=== PATIENT | female | born 1935 | race Caucasian/White ===

== ENCOUNTER 2017-12-15 14:46 | Emergency (ER) | payer MEDICARE ==
[~2017-12-15] VITALS: Ht 160 cm; Wt 69.1 kg
[2017-12-15 14:52] VITALS: BP 119/63; Ht 160 cm; Wt 69.1 kg
[2017-12-15] MEDS ORDERED: METOPROLOL TART25 MG PO (14:53)
[2017-12-15] MEDS ORDERED: K-TAB10 MEQ PO (14:55)
[2017-12-15] MEDS ORDERED: PLAVIX75 MG PO (14:56)
[2017-12-15] MEDS ORDERED: DEXILANT30 MG PO (14:56)
[2017-12-15 15:52] LABS: APTT 30.5 SECONDS (22.8-39.4); INR 1.1 (0.85-1.17); PROTIME 13.8 SECONDS (11.6-15.0)
[2017-12-15] MEDS ORDERED: TORADOL10 MG PO (16:30)
== END 2017-12-15 17:06 | disposition home or self-care (01) ==
LOC: D.ER 14:46
PROVIDERS: Emergency Medicine
DX: S22.31XA Fracture of one rib, right side, initial encounter for closed fracture (principal); W18.30XA Fall on same level, unspecified, initial encounter; Y93.89 Activity, other specified; Y92.89 Other specified places as the place of occurrence of the external cause; Z79.01 Long term (current) use of anticoagulants

== ENCOUNTER 2018-07-31 18:41 | Inpatient (IN) | payer MEDICARE ==
[~2018-07-31] VITALS: Ht 160 cm; Wt 69.4 kg
[~2018-07-31 18:41] MED LIST: DEXILANT30 MG PO; K-TAB10 MEQ PO; METOPROLOL TART25 MG PO; PLAVIX75 MG PO; TORADOL10 MG PO
[2018-07-31 19:31] LABS: BASOPHILS 0.4 % (0-2); EOSINOPHILS 1.8 % (0-7); HEMATOCRIT 38.8 % (36.0-48.0); HEMOGLOBIN 13.1 g/dL (12-16); IMMATURE GRANULOCYTES 0.1 % (0-5); LYMPHOCYTES 35.8 % (15-50); MCH 29.6 pg (26.0-34.0); MCHC 33.8 g/dL (31.0-37.0); MCV 87.8 fL (80.0-100.0); MEAN PLATELET VOLUME 10.3 fL (7.4-10.4); MONOCYTES 8.9 % (2-11); PLATELET COUNT 255 10x3/uL (130-400); RBC 4.42 10x6/uL (4.00-5.40); RDW 14.5 % (11.5-14.5); WBC 7.1 10x3/uL (4.8-10.8)
[2018-07-31 19:46] LABS: ALBUMIN 3.7 g/dL (3.4-5.0); ALKALINE PHOSPHATASE 91 U/L (46-116); ALT (SGPT) 13 U/L (10-68); BILIRUBIN - TOTAL 0.33 mg/dL (0.2-1.3); CALC OSMOLALITY 277 mosm/kg (275-300); CARBON DIOXIDE 24.4 mmol/L (21.0-32.0); CHLORIDE - SERUM 107 mmol/L (98-107); CREATININE - SERUM 0.9 mg/dL (0.6-1.3); GLUCOSE 106 mg/dL (74-106); POTASSIUM - SERUM 3.6 mmol/L (3.5-5.1); PROTEIN - SERUM 7.3 g/dL (6.4-8.2); SODIUM 139 mmol/L (136-145); UREA NITROGEN 13 mg/dL (7-18); eGFR NON AFRICAN AMERICAN 63 mL/min (90-120)
[2018-07-31 19:55] LABS: LIPASE 122 U/L (73-393); MAGNESIUM - SERUM 1.7 mg/dL (1.8-2.4); THYROID STIMULATING HORMONE 2.11 uIU/mL (0.36-3.74); TROPONIN-I < 0.017 ng/mL (0.000-0.060)
[2018-07-31 20:52] VITALS: BP 174/82
[2018-07-31 22:33] VITALS: BP 171/75
[2018-07-31] MEDS ORDERED: CILOSTAZOL50 MG PO (22:52)
[2018-07-31] MEDS ORDERED: PROZAC40 MG PO (22:52)
[2018-07-31] MEDS ORDERED: VITAMIN B-122500 MCG PO (22:53)
[2018-07-31] MEDS ORDERED: BAYER CHEWABLE81 MG PO (22:54)
[2018-07-31] MEDS ORDERED: VITAMIN D31000 UNI2 PO (22:54)
[2018-08-01] VITALS (7 sets, daily range): BP systolic 146–179; BP diastolic 73–88; Ht 160 cm; Wt 69.4 kg
--- NOTE | 2018-08-01 03:02 | NUR ---
I have reviewed this patient and I concur with the Shift Assessment completed by the Licensed Practical Nurse today this shift.
--- NOTE | 2018-08-01 20:07 | NUR ---
EVENING ROUNDS COMPLETED. VSS, [id number] NO S/S OF RESP. DISTRESS. RR EVEN AND UNLABORED. PT DENIES ANY FURHTER NEEDS AT THIS TIME. WILL CPOC. CL WITHIN REACH.
--- NOTE | 2018-08-01 22:55 | NUR ---
PT DAUGHTER C/O THAT PT HAVE NOT RECIEVED ANY OF HER NIGHT MEDS. PT STATES MEDS REC. HAS BEEN DONE SINCE YESTERDAY BUT PT DID NOT RECIEVE HER ELAVIL TONIGHT. CALLED CORTNEY ERAZO. CLIENT SERVICES COORDINATOR ORDERED 5MG ELAVIL. PT VOICED THANKS AWAITING STAFF NURSE TO HELP PULL UP MEDS FROM [facility] AT THIS TIME.
[2018-08-02] VITALS: BP 153/69
[2018-08-02 04:00] VITALS: BP 161/79
[2018-08-02 06:32] LABS: BASOPHILS 0.4 % (0-2); EOSINOPHILS 1.6 % (0-7); HEMATOCRIT 40.5 % (36.0-48.0); HEMOGLOBIN 13.2 g/dL (12-16); IMMATURE GRANULOCYTES 0.1 % (0-5); LYMPHOCYTES 23.4 % (15-50); MCH 29.2 pg (26.0-34.0); MCHC 32.6 g/dL (31.0-37.0); MCV 89.6 fL (80.0-100.0); MEAN PLATELET VOLUME 10.1 fL (7.4-10.4); MONOCYTES 9.4 % (2-11); NEUTROPHILS 65.1 % (40-80); PLATELET COUNT 235 10x3/uL (130-400); RBC 4.52 10x6/uL (4.00-5.40); RDW 14.9 % (11.5-14.5); WBC 6.8 10x3/uL (4.8-10.8)
[2018-08-02 06:48] LABS: APTT 27.3 SECONDS (22.8-39.4); INR 1.15 (0.85-1.17); PROTIME 14.2 SECONDS (11.6-15.0)
[2018-08-02 07:08] LABS: ANION GAP 14.4 mmol/L (8-16); CALCIUM 8.6 mg/dL (8.5-10.1); CARBON DIOXIDE 26.1 mmol/L (21.0-32.0); CREATININE - SERUM 0.8 mg/dL (0.6-1.3); POTASSIUM - SERUM 3.5 mmol/L (3.5-5.1)
--- NOTE | 2018-08-02 07:38 | NUR ---
ROUNDING DONE WITH PATIENT BEING NPO FOR CT BX TODAY, PERMITS ARE SIGNED. ON ROOM AIR. 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 ON HEART MONITOR SHOWING SR, HR 75. LEFT FA PIV SEEN WITH NS INFUSING AT 125 CC/HR, ORANGE SWAB CAP IN USE.
--- NOTE | 2018-08-02 09:42 | NUR ---
PATIENT STATES HEADACHE IS SLIGHTLY BETTER FROM ICE PACK THAT WAS OFFERED. STILL NPO FOR CT LUNG BX. FAMILY IS AT BEDSIDE.
[2018-08-02 09:56] VITALS: BP 137/67
--- NOTE | 2018-08-02 11:57 | NUR ---
1145-RETURNS FROM CT WITH DRESSING SEEN TO ANTERIOR CHEST WALL, C/D/I.
[2018-08-02 12:10] VITALS: BP 145/58
--- NOTE | 2018-08-02 13:52 | NUR ---
Nutrition follow-up: Pt s/p EGD with food bolus removal and espophageal dilation Diet has advanced to full liquids RDN will order Ensure with meals RDN following.
[2018-08-02 15:32] VITALS: BP 145/66
--- NOTE | 2018-08-02 18:45 | NUR ---
PATIENT IS RESTING STILL PAST SUPPER. NO BLEEDING SEEN TO LEFT ANTERIOR CHEST FROM CT LUNG BX. WILL CONTINUE TO FOLLOW.
--- NOTE | 2018-08-02 19:15 | NUR ---
PT RESTING IN BED. AROUSES WHEN NURSES CAME INTO ROOM FOR BEDSIDE REPORT. PT IS AAO, ASSISTED PT TO RESTROOM MINIMAL ASSIST. PT GAIT STEADY. NO S/S OF DISTRESS. PT BEDLOW AND CALL LIGHT IN REACH. PT VERBALIZED UNDERSTANDING TO CALL NEXT TIME NEEDING TO GET UP TO PREVENT FALLS UNTIL PT FULLY OUT OF SEDATION. NAME AND DATE ON BOARD. WILL CPOC
[2018-08-02 20:00] VITALS: BP 146/66
--- NOTE | 2018-08-02 20:22 | NUR ---
FIORECET GIVEN FOR A HEADACHE. PT DENIES ANY OTHER NEEDS. WILL CPOC
--- NOTE | 2018-08-02 21:56 | NUR ---
NIGHT MEDICATIONS GIVEN. PT VERBALIZED UNDERSTANDING OF MEDICATIONS. PT IS AAO. CHEFORNAK AND WEARING HEARING AIDS. PT STATES HEADACHE IS BETTER. PT HAS NOURISHENT AT BEDSIDE. NS INFUSING ORDERED. NO S/S OF DISTRESS. HEPARIN STARTED BACK ORDERED. PT VERBALIZED UNDERSTANDING. TESSLON PERLE GIVEN TO DECREASE CHANCE OF COUGH. PT ON 2L O2 NC. BEDLOW AND CALL LIGHT IN REACH. WILL CPOC
[2018-08-03] VITALS: BP 139/63
[2018-08-03 04:00] VITALS: BP 148/62
--- NOTE | 2018-08-03 04:04 | NUR ---
PT ASLEEP. NO S/S OF DISTRESS. RESP EVEN AND UNLABORED. 2L O2 NC. PT WILL CALL FOR ASSIST WHEN NEEDED. NS INFUSING ORDERED BEDLOW AND CALL LIGHT IN REACH. WILL CPOC
--- NOTE | 2018-08-03 07:32 | NUR ---
REPORT RECEIVED. WILL CONTINUE WITH POC. PT CURRENTLY LYING SEMI FOWLERS. CALL LIGHT W/I REACH. PT IS RESTING AT THE MOMENT. FAMILY AT BEDSIDE. RR EVEN AND UNLABORED ON 2L 02. NS INFUSING @125ML/HR VIA L.FOR PIV. PT DENIES ANY NEEDS AT THIS TIME. NO S/S OF DISTRESS NOTED. WILL CTM.
[2018-08-03 08:33] VITALS: BP 167/69
[2018-08-03 11:52] VITALS: BP 143/66
[2018-08-03] MEDS ORDERED: PROTONIX40 MG PO (12:53)
--- NOTE | 2018-08-03 14:16 | NUR ---
PT DISCHARGED HOME VIA WHEELCHAIR WITH FAMILY. PIV REMOVED WITH CATHETER TIP FULLY INTACT. TELEMETRY REMOVED AND RETURNED. PT SIGNED PROPER DISCHARGE INSTRUCTION AND REMOVED ALL VALUABLES FROM THE ROOM.
== END 2018-08-03 14:17 | disposition home or self-care (01) | DRG 182 ==
LOC: D.ER 18:41 → D.M2 21:41
PROVIDERS: Family Medicine; Internal Medicine Gastroenterology; Radiology Diagnostic Radiology; ADMIT Internal Medicine Nephrology; ATTEND Internal Medicine Nephrology
PROC: 0D758ZZ Dilation of Esophagus, Via Natural or Artificial Opening Endoscopic (ICD-10-PCS; principal; 2018-08-01 15:00)
PROC: 0BBG3ZX Excision of Left Upper Lung Lobe, Percutaneous Approach, Diagnostic (ICD-10-PCS; 2018-08-02)
DX: C34.12 Malignant neoplasm of upper lobe, left bronchus or lung (principal); R13.10 Dysphagia, unspecified; I25.10 Atherosclerotic heart disease of native coronary artery without angina pectoris; K21.9 Gastro-esophageal reflux disease without esophagitis; M54.9 Dorsalgia, unspecified; G89.29 Other chronic pain; I73.9 Peripheral vascular disease, unspecified; Z85.3 Personal history of malignant neoplasm of breast; Z87.891 Personal history of nicotine dependence

== ENCOUNTER → 2018-08-16 09:20 | Outpatient (CLI) | payer MEDICARE, BC ==
[2018-08-01 15:01] VITALS: BMI 27.1
[~2018-08-16 09:20] MED LIST changes: +BAYER CHEWABLE81 MG PO; +CILOSTAZOL50 MG PO; +PROTONIX40 MG PO; +PROZAC40 MG PO; +VITAMIN B-122500 MCG PO; +VITAMIN D31000 UNI2 PO
== END | disposition home or self-care (01) ==
LOC: D.MRI 09:00
PROVIDERS: ATTEND Internal Medicine Hematology & Oncology
DX: G93.9 Disorder of brain, unspecified (principal)

== ENCOUNTER 2018-09-01 05:53 | Day surgery (SDC) | payer MEDICARE, BC ==
[~2018-09-01] VITALS: Ht 160 cm; Wt 69.4 kg
[~2018-09-01 05:53] MED LIST changes: +DEXILANT60 MG PO; +ELAVIL25 MG PO
[2018-09-01 06:32] LABS: BASOPHILS 0.8 % (0-2); EOSINOPHILS 3.8 % (0-7); HEMATOCRIT 38.1 % (36.0-48.0); HEMOGLOBIN 12.4 g/dL (12-16); LYMPHOCYTES 36.4 % (15-50); MCH 29.5 pg (26.0-34.0); MCHC 32.5 g/dL (31.0-37.0); MCV 90.5 fL (80.0-100.0); MEAN PLATELET VOLUME 9.8 fL (7.4-10.4); MONOCYTES 9.6 % (2-11); NEUTROPHILS 49.4 % (40-80); PLATELET COUNT 225 10x3/uL (130-400); RBC 4.21 10x6/uL (4.00-5.40); RDW 15.1 % (11.5-14.5); WBC 4.8 10x3/uL (4.8-10.8)
[2018-09-01 06:33] LABS: ANION GAP 11.8 mmol/L (8-16); CALCIUM 8.9 mg/dL (8.5-10.1); CARBON DIOXIDE 28.9 mmol/L (21.0-32.0); CREATININE - SERUM 0.9 mg/dL (0.6-1.3); POTASSIUM - SERUM 3.7 mmol/L (3.5-5.1)
[2018-09-01 06:51] LABS: APTT 28.6 SECONDS (22.8-39.4); INR 1.07 (0.85-1.17); PROTIME 13.4 SECONDS (11.6-15.0)
[2018-09-01] MEDS ORDERED: PROTONIX40 MG PO (07:35)
[2018-09-01 07:49] VITALS: Ht 160 cm; Wt 69.4 kg
--- NOTE | 2018-09-01 10:24 | NUR ---
REINFORCED DRESSING TO LT UPPER CHEST @9086
--- NOTE | 2018-09-01 11:15 | NUR ---
1102 SPOKE WITH ANESTHESIA RE: BP. PER DR. ALVAREZ, HAVE PT F/U WITH PRIMARY CARE
--- NOTE | 2018-09-02 16:07 | OP ---
PATIENT NAME: SHARON SELLERS MEDICAL RECORD: [id number] :31 LOCATION:D[facility] ADMISSION DATE: SURGEON: INOCENTE GLORIA MD DATE OF OPERATION: 09/01/2018 PREOPERATIVE DIAGNOSIS: Lung cancer in need of IV access for chemotherapy. POSTOPERATIVE DIAGNOSIS: Lung cancer in need of IV access for chemotherapy. PROCEDURES: 1. Placement of left infraclavicular PowerPort under fluoroscopic guidance. 2. Immediate surgeon interpretation of the fluoroscopic images. SURGEON: Inocente Gloria MD REFERRAL COORDINATOR: None. BLOOD LOSS: Minimal. ANESTHESIA: General. COMPLICATIONS: None. The risks, possible complications and alternatives to the procedure were explained to the patient. She elects to proceed. The discussion specifically included, but was not limited to, bleeding requiring emergency reoperation, infection, the port could flip or become nonfunctional. No radiologist was present for this procedure. Static fluoroscopic images were obtained and are kept in the PACS system. The surgeon interpretation of the radiographic images is dictated within the body of this operative note. OPERATIVE COURSE: The patient was conveyed to the operating room electively on 09/01/2018. General anesthesia was induced by the anesthesia staff. The left chest and left neck were sterilely prepped and draped. Under ultrasonographic guidance, I percutaneously accessed the left internal jugular vein in an antegrade fashion. A guidewire passed easily. This was visualized under fluoroscopy. A skin incision was accomplished around the guidewire. Even though the patient had a mastectomy, I elected to place the port on the left side. A transverse incision was accomplished in the left anterior superior infraclavicular chest. Sharp dissection was carried down to the level of the pectoralis fascia. The subcutaneous pocket was fashioned bluntly in a caudad direction. I then excised some of the adipose tissue from between the skin and the pectoralis fascia in order to aid in accessing the port. I tunneled the catheter from the chest incision to the neck incision. Under fluoroscopy, I advanced a dilator sheath over the wire. The dilator and wire were removed. Through the sheath, I advanced the PowerPort catheter to the cavoatrial junction. The Peel-Away sheath was then removed. I then shortened the catheter. It was attached to the PowerPort. The locking device was firmly engaged. The port was placed in the subcutaneous pocket. It was sutured to the underlying pectoralis fascia with 3-point fixation utilizing 3-0 Prolenes to prevent the port from flipping. OPERATIVE REPORT [id number] SHARON SELLERS I irrigated in the port pocket. The subdermis was approximated with interrupted 3-0 Vicryls. The skin was approximated with a running intracuticular 3-0 Vicryl. Skin incision at the neck was closed with interrupted intracuticular 3-0 Vicryls. I then accessed the port. It accessed easily. It aspirated blood and it flushed easily as well. I then deaccessed the port. Sterile dressings were applied. An image was obtained over the mediastinum. It revealed no radiographic evidence of complication. No pneumothorax. Another image was obtained over the left lung apex that revealed no radiographic evidence of complication. The patient was then extubated and conveyed to post-anesthesia care unit where she was in stable condition. TRANSINT:[id number] Voice Confirmation ID: [id number] DOCUMENT ID: [id number] INOCENTE GLORIA MD at 1607 CC: AVTAR VALENTIN MD [id number] DICTATION DATE: 09/01/18 1433 PROFESSOR OF MUSIC: 09/01/18 1507 [facility] 09/01/18 [facility] [address] [place] [address]
== END 2018-09-01 14:50 | disposition home or self-care (01) ==
LOC: D.OPS 05:53 → D.PAN 09:15 → D.OPS 09:15
PROVIDERS: Anesthesiology; ATTEND Surgery
DX: C34.90 Malignant neoplasm of unspecified part of unspecified bronchus or lung (principal); Z01.812 Encounter for preprocedural laboratory examination

== ENCOUNTER 2018-10-01 05:15 | Inpatient (IN) | payer MEDICARE, BC ==
[~2018-10-01] VITALS: Ht 160 cm; Wt 68.0 kg
[2018-10-01] VITALS (7 sets, daily range): BP systolic 95–134; BP diastolic 50–70; BMI 26.6
[2018-10-01 05:58] LABS: BASOPHILS 0.3 % (0-2); EOSINOPHILS 0 % (0-7); HEMATOCRIT 34.6 % (36.0-48.0); HEMOGLOBIN 11.8 g/dL (12-16); IMMATURE GRANULOCYTES 0.3 % (0-5); LYMPHOCYTES 8.8 % (15-50); MCH 30.1 pg (26.0-34.0); MCHC 34.1 g/dL (31.0-37.0); MCV 88.3 fL (80.0-100.0); MEAN PLATELET VOLUME 9.4 fL (7.4-10.4); MONOCYTES 8.3 % (2-11); NEUTROPHILS 82.3 % (40-80); PLATELET COUNT 220 10x3/uL (130-400); RBC 3.92 10x6/uL (4.00-5.40); RDW 15.3 % (11.5-14.5)
[2018-10-01 06:13] LABS: APTT 28.9 SECONDS (22.8-39.4); INR 1.11 (0.85-1.17); PROTIME 13.8 SECONDS (11.6-15.0)
[2018-10-01 06:19] LABS: ALBUMIN 3.3 g/dL (3.4-5.0); ALKALINE PHOSPHATASE 67 U/L (46-116); ALT (SGPT) 18 U/L (10-68); BILIRUBIN - TOTAL 0.47 mg/dL (0.2-1.3); CALC OSMOLALITY 280 mosm/kg (275-300); CALCIUM 8.8 mg/dL (8.5-10.1); CARBON DIOXIDE 24.7 mmol/L (21.0-32.0); CHLORIDE - SERUM 102 mmol/L (98-107); GLUCOSE 162 mg/dL (74-106); SODIUM 138 mmol/L (136-145); UREA NITROGEN 14 mg/dL (7-18); eGFR NON AFRICAN AMERICAN 56 mL/min (90-120)
--- NOTE | 2018-10-01 06:25 | NUR ---
URINE SENT TO LAB
[2018-10-01 06:30] LABS: CKMB 0.7 U/L (0.0-3.6); CREATINE KINASE 65 UL (21-215); TROPONIN-I < 0.017 ng/mL (0.000-0.060)
--- NOTE | 2018-10-01 06:47 | NUR ---
PT ASSISTED WITH BEDPAN
--- NOTE | 2018-10-01 07:00 | NUR ---
ASSUMED PATIENT CARE FROM [place] IN SBAR FORMAT; FAMILY AT BEDSIDE; PATIENT SLEEPING, AWAKES TO VERBAL STIMULI; NO NEEDS NOTED; UPDATED ON PLAN OF CARE AND DELAYS IN CARE; WILL CONTINUE TO MONITOR
[2018-10-01] MEDS ORDERED: LOMOTIL 2.5-0.1 EAC1 PO (07:14)
[2018-10-01] MEDS ORDERED: PHENERGAN25 MG RC (07:14)
[2018-10-01 07:38] LABS: APPEARANCE HAZY (CLEAR); BILIRUBIN NEGATIVE (NEGATIVE); COLOR YELLOW (YELLOW); GLUCOSE NEGATIVE (NEGATIVE); KETONE NEGATIVE (NEGATIVE); NITRITE POSITIVE (NEGATIVE); PROTEIN TRACE mg/dL (NEGATIVE); SPECIFIC GRAVITY 1.015 (1.005-1.020); UROBILINOGEN NORMAL (NORMAL)
[2018-10-01 07:39] LABS: BACTERIA MODERATE /hpf (NONE SEEN); EPITHELIAL CELLS 0-5 /hpf (0-5); RED CELLS - URINE 0-5 /hpf (0-5); WHITE CELLS - URINE 0-5 /hpf (0-5)
--- NOTE | 2018-10-01 08:00 | NUR ---
PATIENT SLEEPING; AWAKES TO VERBAL STIMULI; NO NEEDS NOTED; UPDATED ON PLAN OF CARE AND DELAYS IN CARE; WILL CONTINUE TO MONITOR.
--- NOTE | 2018-10-01 09:08 | NUR ---
ASSISTED PATIENT WITH BEDPAN; FAMILY AT BEDSIDE; NO OTHER NEEDS NOTED; WILL CONTINUE TO MONITOR.
--- NOTE | 2018-10-01 10:38 | NUR ---
TOOK PATIENT TO THE FLOOR AND WAS TOLD THE ROOM WAS DIRTY FROM YESTERDAY; PATEINT RETURNED TO ED ROM #10 AWAITING EVS TO CLEAN ROOM 2127.
--- NOTE | 2018-10-01 11:22 | NUR ---
PT ARRIVED VIA BED. ASSISTED UP TO THE BATHROOM BY ER NURSE. PT HAS MINIMAL DIFFICULTY NOTED AT THIS TIME. PT IS WEARING A MASK, BLOOD COUNTS DO NOT APPEAR TO REQUIRE REVERSE ISOLATION AT THIS TIME, WILL DOUBLE CHECK WITH DR. VALENTIN. PT IS PLESANT, ALERT/ORIENTED X4. DAUGHTER AT BEDSIDE.
--- NOTE | 2018-10-01 11:25 | NUR ---
PATIENT TRANSPORTED TO UNIT VIA [employer];
--- NOTE | 2018-10-01 16:03 | NUR ---
PT RESTING PEACEFULLY, NO FAMILY AT BEDSIDE. DID NOT WAKE I ENTER, DID NOT FURTHER DISTURB AT THIS TIME. RESPIRATIONS EVEN/REGULAR/UNLABORED. CL IN REACH, SRX2.
--- NOTE | 2018-10-01 19:54 | NUR ---
RECEIVED REPORT, WILL ASSUME CARE OF PT, DENIES ANY NEEDS AT THIS TIME, BED IS LOW, SRX2, CALL LIGHT IN ROOM, FAMILY AT BEDSIDE, WILL CONTINUE PLAN OF CARE
[2018-10-02] VITALS: BP 133/68
--- NOTE | 2018-10-02 01:53 | NUR ---
I have reviewed this patient and I concur with the Shift Assessment completed by the Licensed Practical Nurse today this shift.
[2018-10-02 04:00] VITALS: BP 121/61
[2018-10-02 06:20] LABS: BASOPHILS 0.5 % (0-2); EOSINOPHILS 1.4 % (0-7); HEMATOCRIT 31.7 % (36.0-48.0); HEMOGLOBIN 10.4 g/dL (12-16); IMMATURE GRANULOCYTES 0.2 % (0-5); LYMPHOCYTES 22.4 % (15-50); MCH 29.3 pg (26.0-34.0); MCHC 32.8 g/dL (31.0-37.0); MCV 89.3 fL (80.0-100.0); MEAN PLATELET VOLUME 9.7 fL (7.4-10.4); MONOCYTES 12.5 % (2-11); PLATELET COUNT 212 10x3/uL (130-400); RBC 3.55 10x6/uL (4.00-5.40); RDW 15.5 % (11.5-14.5); WBC 4.2 10x3/uL (4.8-10.8)
[2018-10-02 06:42] LABS: ALBUMIN 2.5 g/dL (3.4-5.0); BILIRUBIN - TOTAL 0.23 mg/dL (0.2-1.3); CALCIUM 8.3 mg/dL (8.5-10.1); CARBON DIOXIDE 24.9 mmol/L (21.0-32.0); CREATININE - SERUM 0.8 mg/dL (0.6-1.3); POTASSIUM - SERUM 3.9 mmol/L (3.5-5.1); PROTEIN - SERUM 5.3 g/dL (6.4-8.2)
--- NOTE | 2018-10-02 07:19 | NUR ---
PT ASLEEP, DID NOT WAKE I ENTERED. BREATHS EVEN/REGULAR/UNLABORED, NO SIGNS OR SYMPTOMS OF ACUTE DISTRESS NOTED AT THIS TIME. NO FAMILY PRESENT AT THIS TIME. DID NOT FURTHER DSITURB AT THIS TIME. CL IN REACH, SRX2.
[2018-10-02 09:06] VITALS: BP 129/69
[2018-10-02 11:43] VITALS: BP 97/54
--- NOTE | 2018-10-02 14:42 | NUR ---
I have reviewed this patient and I concur with the Shift Assessment completed by the Licensed Practical Nurse today this shift.
--- NOTE | 2018-10-02 15:25 | NUR ---
PT IS RESTING COMFORTABLY, NO FAMILY AT BEDSIDE AT THIS TIME. WATCHING TELIVISION, NO QUESTIONS AT THIS TIME. CL IN REACH, SRX2.
--- NOTE | 2018-10-02 17:40 | NUR ---
SCD'S ON PT, PT WORE THEM FOR ABOUT AN HOUR, SHE THEN REFUSED.
--- NOTE | 2018-10-02 19:15 | NUR ---
RECEIVED REPORT, WILL ASSUME CARE OF PT, ASSISTED PT TO BSC AND BACK TO BED, AGREE TO TRY SCD AGAIN, COMPLAINS OF HEAD ACHE, WILL GIVE TYLENOL ORDERED, BED IS LOW, SRX2, CALL LIGHT IN REACH, WILL CONTINUE PLAN OF CARE
[2018-10-02 20:00] VITALS: BP 109/55
--- NOTE | 2018-10-02 20:24 | NUR ---
PM MEDS GIVEN, PROVIDED ICE WATER, WILL CONTINUE PLAN OF CARE
--- NOTE | 2018-10-02 20:30 | NUR ---
PT WAS SCHDULED FOR OUT PATIENT EGD FOR TOMORROW, DR. TIAN WAS CONSULTED TODAY, EXPLAINED TO FAMILY AND PT, WILL KEEP NPO, IN CASE DR. ROBISON WANT TO CONTINUE WITH EGD
[2018-10-03 00:14] VITALS: BP 144/66
--- NOTE | 2018-10-03 02:57 | NUR ---
I have reviewed this patient and I concur with the Shift Assessment completed by the Licensed Practical Nurse today this shift.
[2018-10-03 04:15] VITALS: BP 131/65
[2018-10-03 05:33] LABS: BASOPHILS 0.5 % (0-2); EOSINOPHILS 2.1 % (0-7); HEMATOCRIT 31.3 % (36.0-48.0); HEMOGLOBIN 10.5 g/dL (12-16); IMMATURE GRANULOCYTES 0.3 % (0-5); LYMPHOCYTES 30.9 % (15-50); MCH 29.8 pg (26.0-34.0); MCHC 33.5 g/dL (31.0-37.0); MCV 88.9 fL (80.0-100.0); MEAN PLATELET VOLUME 9.5 fL (7.4-10.4); NEUTROPHILS 50.2 % (40-80); PLATELET COUNT 214 10x3/uL (130-400); RBC 3.52 10x6/uL (4.00-5.40); RDW 15.4 % (11.5-14.5); WBC 3.8 10x3/uL (4.8-10.8)
[2018-10-03 05:50] LABS: ALBUMIN 2.4 g/dL (3.4-5.0); ALKALINE PHOSPHATASE 56 U/L (46-116); ALT (SGPT) 16 U/L (10-68); BILIRUBIN - TOTAL 0.21 mg/dL (0.2-1.3); CALC OSMOLALITY 285 mosm/kg (275-300); CALCIUM 8.6 mg/dL (8.5-10.1); CHLORIDE - SERUM 109 mmol/L (98-107); CREATININE - SERUM 0.7 mg/dL (0.6-1.3); GLUCOSE 100 mg/dL (74-106); POTASSIUM - SERUM 3.9 mmol/L (3.5-5.1); PROTEIN - SERUM 5.3 g/dL (6.4-8.2); SODIUM 144 mmol/L (136-145); UREA NITROGEN 9 mg/dL (7-18); eGFR NON AFRICAN AMERICAN 84 mL/min (90-120)
--- NOTE | 2018-10-03 07:24 | NUR ---
PT ASLEEP, LYING ON BACK. BREATHS EVEN, REGULAR, UNLABORED. NO SIGNS OR SYMPTOMS OF ACUTE DISTRESS NOTED AT THIS ITME. CL IN REACH, SRX2. NO FAMILY PRESENT AT THIS TIME. SPOKE WITH DR TIAN THIS MORNING ABOUT PTS OUT PATIENT EGD, DR. TIAN REVIEWED HER LABS AND STATUS WITH ME, HE DECIDED TO GO AHEAD AND PREFORM HER EGD SCHEDULED. PT HAS BEEN NPO AFTER MIDNIGHT, ORDERS HAVE BEEN PLACED PER DR. TIAN ORDER.
--- NOTE | 2018-10-03 09:54 | NUR ---
PREOP MEDS GIVEN VIA ANESTHESIOLOGIST. PT LEFT FOR EGD.
[2018-10-03 11:16] VITALS: BP 139/64
[2018-10-03 14:43] VITALS: Ht 160 cm; Wt 68.0 kg
[2018-10-03 16:07] VITALS: BP 135/72
--- NOTE | 2018-10-03 17:54 | MORECARE ---
CASE MANAGEMENT DISCHARGE SUMMARY PATIENT: SHARON SELLERS UNIT: [id number] ADM DATE: 10/01/18 AGE: 82 : 33 SEX: F ROOM/BED: D.7422 AUTHOR: SYDNEE,DOC PHYSICIAN: REFERRING PHYSICIAN: JONO VEGA MD DATE OF SERVICE: 10/03/18 Discharge Plan Patient Name: SHARON SELLERS Facility: [facility]:[place] : 1935 Planned Disposition: Home Anticipated Discharge Date: Discharge Date: Expected LOS: Initial Reviewer: [id number] Initial Review Date: 10/03/2018 Generated: 10/03/18 6:54 pm Comments DCP- Discharge Planning Updated by [id number]: Heri Muro on 10/03/18 4:[address] Patient Name: SHARON SELLERS Admission Status: ER Accout number: [id number] Admission Date: 10-01-2018 : 1935 Admission Diagnosis: Attending: JONO VEGA Current LOS: 2 Anticipated DC Date: Planned Disposition: Home Primary Insurance: MEDICARE A & B Discharge Planning Comments: CM RECEIVED ORDER FOR "PT". CHART REVIEWED, THERAPY ORDERED. CM MET WITH PT IN ROOM TO DISCUSS DISCHARGE PLANNING AND NEEDS. PT REPORTS LIVING AT HOME INDEPENDENTLY AND ALONE AT [facility]. PT HAS MEAL SERVICES AND DRIVES HER GOLF CART TO THE LUNCH ROOM FOR MEALS. PT HAS HOUSEKEEPING SERVICES. . PT HAS NO MEDICAL EQUIPMENT.. CM DISCUSSED AVAILABILITY OF HOME HEALTH, REHAB SERVICES AND MEDICAL EQUIPMENT. PT DENIES DISCHARGE NEEDS, REPORTS [facility] WILL PICK HER UP FOR DISCHARGE HOME. IMPORTANT MESSAGE FROM MEDICARE PROVIDED AND EXPLAINED. Horse Trekking Guide: Heri Muro DCPIA - Discharge Planning Initial Assessment Updated by [id number]: Heri Muro on 10/03/18 5:52 pm * Is the patient Alert and Oriented? Yes * How many steps to enter\\exit or inside your home? NONE * PCP DR. MTZ IN [place] * Pharmacy [facility], [place] * Preadmission Environment Independent [facility] Apartment * Other Environment [place]AGE * Facility Name [facility] * ADLs Independent * Equipment None * Other Equipment NO MEDICAL EQUIPMENT PROVIDER PREFERENCE * List name and contact numbers for known caregivers / representatives who currently or will assist patient after discharge: NANCY CAGE DTR, LAKISHA RENDON, * Verbal permission to speak to the caregivers and representatives has been obtained from the patient. N/A * Community resources currently utilized None * Please name any agencies selected above. NONE * Additional services required to return to the preadmission environment? No * Can the patient safely return to the preadmission environment? Yes * Has this patient been hospitalized within the prior 30 days at any hospital? No Coverage Notice Reviewer: [id number] Ruslan Muro Notice Issued Date-Time: 10/03/2018 12:10 Notice Type: IM Discharge Notice Notice Delivered To: Patient Relationship to Patient: Tank Operator Name: Delivery Method: HAND - Hand Delivered Catarina Days: Prior Verbal Notification: Recipient Understood Notice: Yes Recipient Signature: Yes Med Rec Note Co-signed by Attending: Coverage Notice Comment: Patient Name: SHARON SELLERS Page [phone] at 1754 All edits/amendments must be made on the electronic document DICTATION DATE: 10/03/181753 INFORMATION SYSTEMS SECURITY ANALYST: SURESH 10/03/181753 RPT#: [id number] DC DATE: STATUS: ADM IN [facility] [address] [place] [address] END OF REPORT
--- NOTE | 2018-10-03 19:43 | NUR ---
PATIENT IS ALERT AND ORIENTED, RESTING COMFORTABLY IN BED. RESPIRATIONS ARE EVEN AND UNLABORED. NO S/S OF DISTRESS. NO C/O PAIN. CALL LIGHT WITHIN REACH. WILL CPOC.
[2018-10-03 20:00] VITALS: BP 158/71
[2018-10-04 00:02] VITALS: BP 165/80
[2018-10-04 04:08] VITALS: BP 154/75
[2018-10-04 07:10] LABS: BASOPHILS 0.7 % (0-2); EOSINOPHILS 1.7 % (0-7); HEMATOCRIT 31.5 % (36.0-48.0); HEMOGLOBIN 10.5 g/dL (12-16); IMMATURE GRANULOCYTES 0.2 % (0-5); LYMPHOCYTES 32.4 % (15-50); MCH 29.2 pg (26.0-34.0); MCHC 33.3 g/dL (31.0-37.0); MCV 87.7 fL (80.0-100.0); MEAN PLATELET VOLUME 9.2 fL (7.4-10.4); MONOCYTES 14.6 % (2-11); NEUTROPHILS 50.4 % (40-80); PLATELET COUNT 240 10x3/uL (130-400); RBC 3.59 10x6/uL (4.00-5.40); RDW 14.9 % (11.5-14.5)
[2018-10-04 07:55] VITALS: BP 155/68
[2018-10-04 08:52] LABS: ALBUMIN 2.5 g/dL (3.4-5.0); ANION GAP 10.8 mmol/L (8-16); BILIRUBIN - TOTAL 0.22 mg/dL (0.2-1.3); CALCIUM 8.4 mg/dL (8.5-10.1); CARBON DIOXIDE 28.7 mmol/L (21.0-32.0); CREATININE - SERUM 0.8 mg/dL (0.6-1.3); POTASSIUM - SERUM 3.5 mmol/L (3.5-5.1); PROTEIN - SERUM 5.5 g/dL (6.4-8.2)
[2018-10-04 12:25] VITALS: BP 126/65
--- NOTE | 2018-10-04 14:38 | NUR ---
REGULAR DIET ORDERED PER DR. ROBISON. RESTS IN BED WITH ALL LIGHT IN REACH. WILL CONT. PLAN OF CARE.
[2018-10-04 14:46] VITALS: BP 132/62
[2018-10-04 20:00] VITALS: BP 148/74
[2018-10-05] VITALS: BP 161/77
--- NOTE | 2018-10-05 01:07 | NUR ---
REC'D IN BED WATCHING TV DENIES ANY COMPLAINTS AT PRESENT TIME.WILL CONTINUE TO MONITOR FOR ANY CHGES AND FOLLOW CURRENT PLAN OF CARE.
[2018-10-05 04:00] VITALS: BP 157/75
[2018-10-05 05:36] LABS: BASOPHILS 0.5 % (0-2); EOSINOPHILS 1.6 % (0-7); HEMATOCRIT 31.5 % (36.0-48.0); HEMOGLOBIN 10.6 g/dL (12-16); IMMATURE GRANULOCYTES 0.5 % (0-5); LYMPHOCYTES 36.6 % (15-50); MCH 29.4 pg (26.0-34.0); MCHC 33.7 g/dL (31.0-37.0); MCV 87.3 fL (80.0-100.0); MEAN PLATELET VOLUME 9.2 fL (7.4-10.4); MONOCYTES 15.3 % (2-11); NEUTROPHILS 45.5 % (40-80); PLATELET COUNT 245 10x3/uL (130-400); RBC 3.61 10x6/uL (4.00-5.40); RDW 14.9 % (11.5-14.5); WBC 4.4 10x3/uL (4.8-10.8)
[2018-10-05 06:03] LABS: ALBUMIN 2.5 g/dL (3.4-5.0); ALKALINE PHOSPHATASE 60 U/L (46-116); BILIRUBIN - TOTAL 0.29 mg/dL (0.2-1.3); CALCIUM 8.6 mg/dL (8.5-10.1); CARBON DIOXIDE 28.8 mmol/L (21.0-32.0); CHLORIDE - SERUM 108 mmol/L (98-107); CREATININE - SERUM 0.7 mg/dL (0.6-1.3); GLUCOSE 107 mg/dL (74-106); PROTEIN - SERUM 5.9 g/dL (6.4-8.2); SODIUM 146 mmol/L (136-145); eGFR NON AFRICAN AMERICAN 84 mL/min (90-120)
[2018-10-05 06:23] LABS: ALT (SGPT) 12 U/L (10-68); CALC OSMOLALITY 288 mosm/kg (275-300); UREA NITROGEN 7 mg/dL (7-18)
[2018-10-05 07:58] VITALS: BP 110/71
--- NOTE | 2018-10-05 08:01 | NUR ---
pt resting, eyes closed. rr even and unlabored. no distress noted. will continue to monitor.
[2018-10-05 12:45] VITALS: BP 125/75
[2018-10-05 16:15] VITALS: BP 114/60
[2018-10-05 20:00] VITALS: BP 144/68
[2018-10-06 00:30] VITALS: BP 140/59
[2018-10-06 04:00] VITALS: BP 150/70
[2018-10-06 05:05] LABS: BASOPHILS 0.6 % (0-2); EOSINOPHILS 2.5 % (0-7); HEMATOCRIT 31.9 % (36.0-48.0); HEMOGLOBIN 10.6 g/dL (12-16); IMMATURE GRANULOCYTES 0.4 % (0-5); LYMPHOCYTES 36.4 % (15-50); MCH 29.3 pg (26.0-34.0); MCHC 33.2 g/dL (31.0-37.0); MCV 88.1 fL (80.0-100.0); MEAN PLATELET VOLUME 8.9 fL (7.4-10.4); MONOCYTES 17.2 % (2-11); NEUTROPHILS 42.9 % (40-80); PLATELET COUNT 243 10x3/uL (130-400); RBC 3.62 10x6/uL (4.00-5.40); RDW 14.9 % (11.5-14.5); WBC 4.8 10x3/uL (4.8-10.8)
[2018-10-06 05:42] LABS: ALBUMIN 2.5 g/dL (3.4-5.0); ANION GAP 9.4 mmol/L (8-16); BILIRUBIN - TOTAL 0.22 mg/dL (0.2-1.3); CALCIUM 8.5 mg/dL (8.5-10.1); CARBON DIOXIDE 32.2 mmol/L (21.0-32.0); POTASSIUM - SERUM 3.6 mmol/L (3.5-5.1); PROTEIN - SERUM 5.9 g/dL (6.4-8.2)
[2018-10-06 05:43] LABS: CREATININE - SERUM 0.9 mg/dL (0.6-1.3)
--- NOTE | 2018-10-06 07:10 | NUR ---
REPORT RECEIVED FROM ASSOCIATE PROFESSOR OF LIBRARY MEDIA AND PATIENT CARE RECEIVED. PATIENT LAYING IN BED WITH EYES CLOSED AND BREATHING EVENLY. PATIENT IS STABLE AND VSS. WILL COTNINUE WITH PLAN OF CARE. SR UP X 2 BED IN LOW POSITION AND CALL LIGHT IN REACH.
[2018-10-06 08:57] VITALS: BP 164/78
--- NOTE | 2018-10-06 10:07 | MORECARE ---
CASE MANAGEMENT DISCHARGE SUMMARY PATIENT: SHARON SELLERS UNIT: [id number] ADM DATE: 10/01/18 AGE: 82 : 33 SEX: F ROOM/BED: D.1470 AUTHOR: SYDNEE,DOC PHYSICIAN: REFERRING PHYSICIAN: JONO VEGA MD DATE OF SERVICE: 10/06/18 Discharge Plan Patient Name: SHARON SELLERS Facility: [facility]:[place] : 1935 Planned Disposition: Home Anticipated Discharge Date: Discharge Date: Expected LOS: Initial Reviewer: [id number] Initial Review Date: 10/03/2018 Generated: 10/06/18 8:10 am Comments DCP- Discharge Planning Updated by [id number]: Heri Muro on 10/06/18 6:[address] Patient Name: SHARON SELLERS Admission Status: ER Accout number: [id number] Admission Date: 10-01-2018 : 1935 Admission Diagnosis:NAUSEA Attending: JONO VEGA Current LOS: 5 Anticipated DC Date: Planned Disposition: Home Primary Insurance: MEDICARE A & B LATE ENTRY FROM 10-05-18, APPROXIMATELY 0900 HOURS. Discharge Planning Comments: CM MET WITH PT IN ROOM TO DISCUSS DISCHARGE NEEDS AND PLANNING, DISCUSSED POSSIBLE NEED OF IV ANTIBIOTICS FOR 4 WEEKS. PT WAS SUPRISED AND REPORTS NOT KNOWING THIS. CM DISCUSSED OPTIONS OF RETURNING HOME, STAYING WITH FAMILY OR FRIEND, OUTPATIENT AND ASSISTED FACILITY POSSIBITIES FOR ANTIBIOTIC ADMINISTRATION, DEPENDING ON HOW OFTEN THE DOSE WOULD BE REQUIRED TO BE ADMINISTERED. PT UNSURE OF WHAT SHE WILL DO IF THE ANTIBIOTICS ARE NEEDED AND WILL DISCUSS THIS WITH HER DAUGHTER. CM LEFT ASSISTED FACILITY CHOICE LIST, POINTED OUT CM CONTACT NUMBER FOR ANY QUESTIONS OR NEEDS. CM INFORMED PT THAT CM WILL BE FOLLOWING UP WITH PT FOR CONTINUED DISCHARGE PLANNING. CM SPOKE TO DR. VALENTIN AT THE NURSES STATION, SHE HAS MET WITH PT AND INFORMED CM THAT PT WILL NOT REQUIRE 4 WEEKS OF IV ANTIBIOTICS. CM LATER RECEIVED CALL FROM PT'S DAUGHTER WHO INFORMED CM THAT CM SHOULD HAVE NOT BEEN DISCUSSING MEDICAL NEEDS WITH PT BEFORE THIS HAS BEEN ADDRESSED WITH THE PT BY THE DOCTOR. DAUGHTER REPORTS SHE IS PT'S POWER OF ZIGZAG MACHINE OPERATOR AND HER MOTHER IS 84 YEARS OLD AND VERY UPSET. CM APOLOGIZED FOR ANY UPSET CAUSED, INFORMED DAUGHTER THAT CM WAS DIRECTED TO SPEAK TO PT REGARDING DISCHARGE PLAN AND THAT THE IC ENGINEER HAD STATED THAT 4 WEEKS OF IV ANTIBIOTICS WOULD BE ORDERED. PT'S DAUGHTER REPORTS SPEAKING TO DR. VALENTIN WHO STATES OTHERWISE AND THAT THE DOCTORS NEED TO BE ADDRESSING THIS WITH PT, NOT THE BEEF SPECIALIST. CM INFORMED PT'S DAUGHTER THAT HER CONCERNS WOULD BE PASSED ALONG TO THE IC ENGINEER AT 'S 1000 AM MEETING THIS MORNING. PT'S DAUGHTER APOLOGIZED TO CM AND STATES SHE IS CONCERNED ABOUT HER MOTHER AND INFORMED CM THAT IF PT'S PLAN IS TO DISCHARGE HOME AND THAT IF PT NEEDS ASSISTANCE, DAUGHTER WILL BE PROVIDING ASSISTANCE. CM INFORMED MULTIDISCIPLINARY TEAM OF PT'S DAUGHTER'S CONCERNS. CM TO CONTINUE TO FOLLOW AND ASSIST WITH DISCHARGE PLANNING IF NEEDED. Statue Carver: Heri Muro DCP- Discharge Planning Updated by [id number]: Heri Muro on 10/03/18 4:[address] Patient Name: SHARON SELLERS Admission Status: ER Accout number: [id number] Admission Date: 10-01-2018 : 1935 Admission Diagnosis: Attending: JONO VEGA Current LOS: 2 Anticipated DC Date: Planned Disposition: Home Primary Insurance: MEDICARE A & B Discharge Planning Comments: CM RECEIVED ORDER FOR "PT". CHART REVIEWED, THERAPY ORDERED. CM MET WITH PT IN ROOM TO DISCUSS DISCHARGE PLANNING AND NEEDS. PT REPORTS LIVING AT HOME INDEPENDENTLY AND ALONE AT [facility]. PT HAS MEAL SERVICES AND DRIVES HER GOLF CART TO THE LUNCH ROOM FOR MEALS. PT HAS HOUSEKEEPING SERVICES. . PT HAS NO MEDICAL EQUIPMENT.. CM DISCUSSED AVAILABILITY OF HOME HEALTH, REHAB SERVICES AND MEDICAL EQUIPMENT. PT DENIES DISCHARGE NEEDS, REPORTS [facility] WILL PICK HER UP FOR DISCHARGE HOME. IMPORTANT MESSAGE FROM MEDICARE PROVIDED AND EXPLAINED. Statue Carver: Heri Muro DCPIA - Discharge Planning Initial Assessment Updated by [id number]: Heri Muro on 10/03/18 5:52 pm * Is the patient Alert and Oriented? Yes * How many steps to enter\\exit or inside your home? NONE * PCP DR. MTZ IN [place] * Pharmacy [facility], [place] * Preadmission Environment Independent [facility] Apartment * Other Environment [place]AGE * Facility Name [facility] * ADLs Independent * Equipment None * Other Equipment NO MEDICAL EQUIPMENT PROVIDER PREFERENCE * List name and contact numbers for known caregivers / representatives who currently or will assist patient after discharge: NANCY CAGE DTR, LAKISHA RENDON, * Verbal permission to speak to the caregivers and representatives has been obtained from the patient. N/A * Community resources currently utilized None * Please name any agencies selected above. NONE * Additional services required to return to the preadmission environment? No * Can the patient safely return to the preadmission environment? Yes * Has this patient been hospitalized within the prior 30 days at any hospital? No Coverage Notice Reviewer: [id number] Ruslan Muro Notice Issued Date-Time: 10/03/2018 12:10 Notice Type: IM Discharge Notice Notice Delivered To: Patient Relationship to Patient: Inspector Fuel Hose Name: Delivery Method: HAND - Hand Delivered Catarina Days: Prior Verbal Notification: Recipient Understood Notice: Yes Recipient Signature: Yes Med Rec Note Co-signed by Attending: Coverage Notice Comment: Last DP export: 10/03/18 4:54 p Patient Name: SHARON SELLERS Page [id number] at 1007 All edits/amendments must be made on the electronic document DICTATION DATE: 10/06/18709 MERCURY CELL CLEANER: SURESH 10/06/18709 RPT#: [id number] DC DATE: STATUS: ADM IN [facility] [address] [place] [address] END OF REPORT
--- NOTE | 2018-10-06 10:26 | NUR ---
PATIENT RESTING COMFORTABLY WITH DTR AT BS. ANSWERED QUESTIONS FOR DTR AND PATIENT TO BOTH SATISFACTIO. PATIENT DENIES ANY NEEDS OR PAIN. WILL CONTINUE WITH PLAN OF CARE. SR UP X 2 BED IN LOW POSTION AND CALL LIGHT IN REACH.
[2018-10-06] MEDS ORDERED: CIPRO500 MG PO (11:28)
--- NOTE | 2018-10-06 16:36 | NUR ---
DR SCOTT AND ABHISHEK TO ROOM. PESSARY PLACED. PATIENT TOLERATED WELL. PATIENT IS STABLE AND VSS. PATIENT DENIES ANY NEEDS OR PAIN. ORDERS FOR DC RECEIVED. AWAITING DISCHARGE PAPERS.
--- NOTE | 2018-10-06 17:15 | MORECARE ---
CASE MANAGEMENT DISCHARGE SUMMARY PATIENT: SHARON SELLERS UNIT: [id number] ADM DATE: 10/01/18 AGE: 82 : 33 SEX: F ROOM/BED: D.1899 AUTHOR: SYDNEE,DOC PHYSICIAN: REFERRING PHYSICIAN: JONO VEGA MD DATE OF SERVICE: 10/06/18 Discharge Plan Patient Name: SHARON SELLERS Facility: [facility]:[place] : 1935 Planned Disposition: Home Anticipated Discharge Date: Discharge Date: Expected LOS: Initial Reviewer: [id number] Initial Review Date: 10/03/2018 Generated: 10/06/18 6:15 pm Comments DCP- Discharge Planning Updated by [email or web address]: Heri Muro on 10/06/18 6:[address] Patient Name: SHARON SELLERS Admission Status: ER Accout number: [id number] Admission Date: 10-01-2018 : 1935 Admission Diagnosis:NAUSEA Attending: JONO VEGA Current LOS: 5 Anticipated DC Date: Planned Disposition: Home Primary Insurance: MEDICARE A & B LATE ENTRY FROM 10-05-18, APPROXIMATELY 0900 HOURS. Discharge Planning Comments: CM MET WITH PT IN ROOM TO DISCUSS DISCHARGE NEEDS AND PLANNING, DISCUSSED POSSIBLE NEED OF IV ANTIBIOTICS FOR 4 WEEKS. PT WAS SUPRISED AND REPORTS NOT KNOWING THIS. CM DISCUSSED OPTIONS OF RETURNING HOME, STAYING WITH FAMILY OR FRIEND, OUTPATIENT AND CORRECTION FACILITY POSSIBITIES FOR ANTIBIOTIC ADMINISTRATION, DEPENDING ON HOW OFTEN THE DOSE WOULD BE REQUIRED TO BE ADMINISTERED. PT UNSURE OF WHAT SHE WILL DO IF THE ANTIBIOTICS ARE NEEDED AND WILL DISCUSS THIS WITH HER DAUGHTER. CM LEFT CORRECTION FACILITY CHOICE LIST, POINTED OUT CM CONTACT NUMBER FOR ANY QUESTIONS OR NEEDS. CM INFORMED PT THAT CM WILL BE FOLLOWING UP WITH PT FOR CONTINUED DISCHARGE PLANNING. CM SPOKE TO DR. VALENTIN AT THE NURSES STATION, SHE HAS MET WITH PT AND INFORMED CM THAT PT WILL NOT REQUIRE 4 WEEKS OF IV ANTIBIOTICS. CM LATER RECEIVED CALL FROM PT'S DAUGHTER WHO INFORMED CM THAT CM SHOULD HAVE NOT BEEN DISCUSSING MEDICAL NEEDS WITH PT BEFORE THIS HAS BEEN ADDRESSED WITH THE PT BY THE DOCTOR. DAUGHTER REPORTS SHE IS PT'S POWER OF WELCOME CENTER ATTENDANT AND HER MOTHER IS 84 YEARS OLD AND VERY UPSET. CM APOLOGIZED FOR ANY UPSET CAUSED, INFORMED DAUGHTER THAT CM WAS DIRECTED TO SPEAK TO PT REGARDING DISCHARGE PLAN AND THAT THE MORTGAGE PROCESSING MANAGER HAD STATED THAT 4 WEEKS OF IV ANTIBIOTICS WOULD BE ORDERED. PT'S DAUGHTER REPORTS SPEAKING TO DR. VALENTIN WHO STATES OTHERWISE AND THAT THE DOCTORS NEED TO BE ADDRESSING THIS WITH PT, NOT THE BONDED STRUCTURES REPAIRER. CM INFORMED PT'S DAUGHTER THAT HER CONCERNS WOULD BE PASSED ALONG TO THE MORTGAGE PROCESSING MANAGER AT 'S 1000 AM MEETING THIS MORNING. PT'S DAUGHTER APOLOGIZED TO CM AND STATES SHE IS CONCERNED ABOUT HER MOTHER AND INFORMED CM THAT IF PT'S PLAN IS TO DISCHARGE HOME AND THAT IF PT NEEDS ASSISTANCE, DAUGHTER WILL BE PROVIDING ASSISTANCE. CM INFORMED MULTIDISCIPLINARY TEAM OF PT'S DAUGHTER'S CONCERNS. CM TO CONTINUE TO FOLLOW AND ASSIST WITH DISCHARGE PLANNING IF NEEDED. Art Therapy Certified Supervisor: Heri Muro DCP- Discharge Planning Updated by [id number]: Heri Muro on 10/03/18 4:[address] Patient Name: SHARON SELLERS Admission Status: ER Accout number: [id number] Admission Date: 10-01-2018 : 1935 Admission Diagnosis: Attending: JONO VEGA Current LOS: 2 Anticipated DC Date: Planned Disposition: Home Primary Insurance: MEDICARE A & B Discharge Planning Comments: CM RECEIVED ORDER FOR "PT". CHART REVIEWED, THERAPY ORDERED. CM MET WITH PT IN ROOM TO DISCUSS DISCHARGE PLANNING AND NEEDS. PT REPORTS LIVING AT HOME INDEPENDENTLY AND ALONE AT [facility]. PT HAS MEAL SERVICES AND DRIVES HER GOLF CART TO THE LUNCH ROOM FOR MEALS. PT HAS HOUSEKEEPING SERVICES. . PT HAS NO MEDICAL EQUIPMENT.. CM DISCUSSED AVAILABILITY OF HOME HEALTH, REHAB SERVICES AND MEDICAL EQUIPMENT. PT DENIES DISCHARGE NEEDS, REPORTS [facility] WILL PICK HER UP FOR DISCHARGE HOME. IMPORTANT MESSAGE FROM MEDICARE PROVIDED AND EXPLAINED. Art Therapy Certified Supervisor: Heri Muro DCPIA - Discharge Planning Initial Assessment Updated by [email or web address]: Heri Muro on 10/03/18 5:52 pm * Is the patient Alert and Oriented? Yes * How many steps to enter\\exit or inside your home? NONE * PCP DR. MTZ IN [place] * Pharmacy [facility], [place] * Preadmission Environment Independent [facility] Apartment * Other Environment [place] * Facility Name [facility] * ADLs Independent * Equipment None * Other Equipment NO MEDICAL EQUIPMENT PROVIDER PREFERENCE * List name and contact numbers for known caregivers / representatives who currently or will assist patient after discharge: NANCY CAGE DTR, LAKISHA JUSTICE, * Verbal permission to speak to the caregivers and representatives has been obtained from the patient. N/A * Community resources currently utilized None * Please name any agencies selected above. NONE * Additional services required to return to the preadmission environment? No * Can the patient safely return to the preadmission environment? Yes * Has this patient been hospitalized within the prior 30 days at any hospital? No External Providers External Provider: [facility] Next Contact Date: 10/06/2018 Service Request Date: Service Type: Resolution: Reviewer: Comments: Coverage Notice Reviewer: [id number] Ruslan Muro Notice Issued Date-Time: 10/03/2018 12:10 Notice Type: IM Discharge Notice Notice Delivered To: Patient Relationship to Patient: Property And Supply Officer Name: Delivery Method: HAND - Hand Delivered Catarina Days: Prior Verbal Notification: Recipient Understood Notice: Yes Recipient Signature: Yes Med Rec Note Co-signed by Attending: Coverage Notice Comment: Last DP export: 10/06/18 6:10 a Patient Name: SHARON SELLERS Page [id number] at 1715 All edits/amendments must be made on the electronic document DICTATION DATE: 10/06/181714 AADC PLANS STAFF OFFICER: SURESH 10/06/181714 RPT#: [id number] DC DATE: STATUS: ADM IN [facility] [address] [place] [address] END OF REPORT
--- NOTE | 2018-10-06 17:24 | MORECARE ---
CASE MANAGEMENT DISCHARGE SUMMARY PATIENT: SHARON SELLERS UNIT: [id number] ADM DATE: 10/01/18 AGE: 82 : 33 SEX: F ROOM/BED: D.6828 AUTHOR: SYDNEE,DOC PHYSICIAN: REFERRING PHYSICIAN: JONO VEGA MD DATE OF SERVICE: 10/06/18 Discharge Plan Patient Name: SHARON SELLERS Facility: [facility]:[place] : 1935 Planned Disposition: Home with Home Health Anticipated Discharge Date: 10/06/18 Discharge Date: Expected LOS: 5 Initial Reviewer: [id number] Initial Review Date: 10/03/2018 Generated: 10/06/18 6:23 pm Comments DCP- Discharge Planning Updated by [email or web address]: Heri Muro on 10/06/18 6:[address] Patient Name: SHARON SELLERS Admission Status: ER Accout number: [id number] Admission Date: 10-01-2018 : 1935 Admission Diagnosis:NAUSEA Attending: JONO VEGA Current LOS: 5 Anticipated DC Date: Planned Disposition: Home Primary Insurance: MEDICARE A & B LATE ENTRY FROM 10-05-18, APPROXIMATELY 0900 HOURS. Discharge Planning Comments: CM MET WITH PT IN ROOM TO DISCUSS DISCHARGE NEEDS AND PLANNING, DISCUSSED POSSIBLE NEED OF IV ANTIBIOTICS FOR 4 WEEKS. PT WAS SUPRISED AND REPORTS NOT KNOWING THIS. CM DISCUSSED OPTIONS OF RETURNING HOME, STAYING WITH FAMILY OR FRIEND, OUTPATIENT AND ASSISTED FACILITY POSSIBITIES FOR ANTIBIOTIC ADMINISTRATION, DEPENDING ON HOW OFTEN THE DOSE WOULD BE REQUIRED TO BE ADMINISTERED. PT UNSURE OF WHAT SHE WILL DO IF THE ANTIBIOTICS ARE NEEDED AND WILL DISCUSS THIS WITH HER DAUGHTER. CM LEFT ASSISTED FACILITY CHOICE LIST, POINTED OUT CM CONTACT NUMBER FOR ANY QUESTIONS OR NEEDS. CM INFORMED PT THAT CM WILL BE FOLLOWING UP WITH PT FOR CONTINUED DISCHARGE PLANNING. CM SPOKE TO DR. VALENTIN AT THE NURSES STATION, SHE HAS MET WITH PT AND INFORMED CM THAT PT WILL NOT REQUIRE 4 WEEKS OF IV ANTIBIOTICS. CM LATER RECEIVED CALL FROM PT'S DAUGHTER WHO INFORMED CM THAT CM SHOULD HAVE NOT BEEN DISCUSSING MEDICAL NEEDS WITH PT BEFORE THIS HAS BEEN ADDRESSED WITH THE PT BY THE DOCTOR. DAUGHTER REPORTS SHE IS PT'S POWER OF FIELD SPECIALIST AND HER MOTHER IS 84 YEARS OLD AND VERY UPSET. CM APOLOGIZED FOR ANY UPSET CAUSED, INFORMED DAUGHTER THAT CM WAS DIRECTED TO SPEAK TO PT REGARDING DISCHARGE PLAN AND THAT THE AUTOMATION QA ANALYST HAD STATED THAT 4 WEEKS OF IV ANTIBIOTICS WOULD BE ORDERED. PT'S DAUGHTER REPORTS SPEAKING TO DR. VALENTIN WHO STATES OTHERWISE AND THAT THE DOCTORS NEED TO BE ADDRESSING THIS WITH PT, NOT THE PARK ACTIVITIES COORDINATOR. CM INFORMED PT'S DAUGHTER THAT HER CONCERNS WOULD BE PASSED ALONG TO THE AUTOMATION QA ANALYST AT 'S 1000 AM MEETING THIS MORNING. PT'S DAUGHTER APOLOGIZED TO CM AND STATES SHE IS CONCERNED ABOUT HER MOTHER AND INFORMED CM THAT IF PT'S PLAN IS TO DISCHARGE HOME AND THAT IF PT NEEDS ASSISTANCE, DAUGHTER WILL BE PROVIDING ASSISTANCE. CM INFORMED MULTIDISCIPLINARY TEAM OF PT'S DAUGHTER'S CONCERNS. CM TO CONTINUE TO FOLLOW AND ASSIST WITH DISCHARGE PLANNING IF NEEDED. Print Line Supervisor: Heri Muro DCP- Discharge Planning Updated by [email or web address]: Heri Muro on 10/03/18 4:[address] Patient Name: SHARON SELLERS Admission Status: ER Accout number: [id number] Admission Date: 10-01-2018 : 1935 Admission Diagnosis: Attending: JONO VEGA Current LOS: 2 Anticipated DC Date: Planned Disposition: Home Primary Insurance: MEDICARE A & B Discharge Planning Comments: CM RECEIVED ORDER FOR "PT". CHART REVIEWED, THERAPY ORDERED. CM MET WITH PT IN ROOM TO DISCUSS DISCHARGE PLANNING AND NEEDS. PT REPORTS LIVING AT HOME INDEPENDENTLY AND ALONE AT [facility]. PT HAS MEAL SERVICES AND DRIVES HER GOLF CART TO THE LUNCH ROOM FOR MEALS. PT HAS HOUSEKEEPING SERVICES. . PT HAS NO MEDICAL EQUIPMENT.. CM DISCUSSED AVAILABILITY OF HOME HEALTH, REHAB SERVICES AND MEDICAL EQUIPMENT. PT DENIES DISCHARGE NEEDS, REPORTS [facility] WILL PICK HER UP FOR DISCHARGE HOME. IMPORTANT MESSAGE FROM MEDICARE PROVIDED AND EXPLAINED. Print Line Supervisor: Heri Muro DCPIA - Discharge Planning Initial Assessment Updated by [email or web address]: Heri Muro on 10/03/18 5:52 pm * Is the patient Alert and Oriented? Yes * How many steps to enter\\exit or inside your home? NONE * PCP DR. MTZ IN [place] * Pharmacy [facility], [place] * Preadmission Environment Independent [facility] Apartment * Other Environment [facility] * Facility Name [facility] * ADLs Independent * Equipment None * Other Equipment NO MEDICAL EQUIPMENT PROVIDER PREFERENCE * List name and contact numbers for known caregivers / representatives who currently or will assist patient after discharge: NANCY CAGE DTR, LAKISHA JUSTICE, * Verbal permission to speak to the caregivers and representatives has been obtained from the patient. N/A * Community resources currently utilized None * Please name any agencies selected above. NONE * Additional services required to return to the preadmission environment? No * Can the patient safely return to the preadmission environment? Yes * Has this patient been hospitalized within the prior 30 days at any hospital? No Coverage Notice Reviewer: JOSEFINA Muro Notice Issued Date-Time: 10/03/2018 12:10 Notice Type: IM Discharge Notice Notice Delivered To: Patient Relationship to Patient: Production Aide Name: Delivery Method: HAND - Hand Delivered Catarina Days: Prior Verbal Notification: Recipient Understood Notice: Yes Recipient Signature: Yes Med Rec Note Co-signed by Attending: Coverage Notice Comment: Reviewer: JOSEFINA Muro Notice Issued Date-Time: 10/06/2018 13:40 Notice Type: IM Discharge Notice Notice Delivered To: Patient Relationship to Patient: Production Aide Name: Delivery Method: HAND - Hand Delivered Catarina Days: Prior Verbal Notification: Recipient Understood Notice: Yes Recipient Signature: Yes Med Rec Note Co-signed by Attending: Coverage Notice Comment: Reviewer: JOSEFINA Muro Notice Issued Date-Time: 10/06/2018 17:05 Notice Type: Patient Choice Letter Notice Delivered To: Family Member Relationship to Patient: Daughter Production Aide Name: LAKISHA Delivery Method: HAND - Hand Delivered Catarina Days: Prior Verbal Notification: Recipient Understood Notice: Yes Recipient Signature: Yes Med Rec Note Co-signed by Attending: Coverage Notice Comment: NO HOME HEALTH PREFERENCE Last DP export: 10/06/18 4:15 p Patient Name: SHARON SELLERS Page [id number] at 1724 All edits/amendments must be made on the electronic document DICTATION DATE: 10/06/181722 SOLAR INSTALLATION TECHNICIAN: SURESH 10/06/181722 RPT#: [id number] DC DATE: STATUS: ADM IN [facility] [address] [place] [address] END OF REPORT
--- NOTE | 2018-10-06 17:29 | NUR ---
PATIENT IS STABLE AND VSS. PATIENT DENIES ANY NEEDS OR PAIN. ORDERS RECEIVED FOR DC. WRITTEN AND VERBAL INSTRUCTIONS GIVEN AND PATIENT SIGNED PAPERWORK. PATIENT AND DAUGHTER VERBALIZED UNDERSTANDING. PATIENT TO FRONT DOOR VIA WC AND HOSPITAL STAFF. PATIENT TO PRIVATED VEHICLE DIRIVEN BY DAUGHTER.
--- NOTE | 2018-10-06 17:39 | MORECARE ---
CASE MANAGEMENT DISCHARGE SUMMARY PATIENT: SHARON SELLERS UNIT: [id number] ADM DATE: 10/01/18 AGE: 82 : 33 SEX: F ROOM/BED: D.4045 AUTHOR: SYDNEE,DOC PHYSICIAN: REFERRING PHYSICIAN: JONO VEGA MD DATE OF SERVICE: 10/06/18 Discharge Plan Patient Name: SHARON SELLERS Facility: [facility]:[place] : 1935 Planned Disposition: Home with Home Health Anticipated Discharge Date: 10/06/18 Discharge Date: Expected LOS: 5 Initial Reviewer: [id number] Initial Review Date: 10/03/2018 Generated: 10/06/18 6:39 pm Comments DCP- Discharge Planning Updated by [email or web address]: Heri Muro on 10/06/18 4:[address] Patient Name: SHARON SELLERS Encounter No: [id number] : 1935 Primary Insurance: MEDICARE A & B Anticipated DC Date: 10-06-2018 Planned Disposition: Home with Home Health External Planned Provider: [facility] DCP follow-up note: CM SPOKE TO PT IN ROOM AT ABOUT 1330 HOURS REGARDING DISCHARGE PLANNING AND NEEDS. CM DISCUSSED AVAILABILTY OF HOME HEALTH, MEDICAL EQUIPMENT AND REAB SERVICES, PT DENIES NEEDS, REPORTS HER DAUGHTER WILL TRANSPORT HER HOME AT DISCHARGE. CM LATER RECEIVED CALL FROM PT ASKING CM TO COME TO HER ROOM. CM MET WITH PT AND DAUGHTER LAKISHA IN ROOM AND DISCUSSED DISCHARGE NEEDS. PT'S DAUGHTER REPORTS THEY ASSIST WITH MEDICATION MANAGEMENT AND NEED NO FURTHER SERVICES. BORE MILL OPERATOR FOR PLASTIC NURSE NOTFIED. AT ABOUT 1700 HOURS, PT'S DAUGHTER LAKISHA REPORTS PT CHANGED HER MIND, WANTS HOME HEALTH AND HAS NO PREFERENCE ON PROVIDER. THEY ARE GOING HOME NOW AND ASKED CM TO SET IT UP AND LET THEM KNOW. LAKISHA LEFT HER PHONE NUMBER TO CONFIRM ARRANGEMENT AT [phone]. CM CALLED [facility], , NOTIFIED OF REFERRAL, ELIE ASSOCIATE PROFESSOR OF SURGERY NURSE NOTIFIED BY MESSAGE. CM FAXED REFERRAL TO [facility] AT [phone]. CM NOTIFED LAKISHA VIA PHONE. Heri Muro CASE MANAGEMENT DCP- Discharge Planning Updated by [email or web address]: Heri Muro on 10/06/18 6:[address] Patient Name: SHARON SELLERS Admission Status: ER Accout number: [id number] Admission Date: 10-01-2018 : 1935 Admission Diagnosis:NAUSEA Attending: JONO VEGA Current LOS: 5 Anticipated DC Date: Planned Disposition: Home Primary Insurance: MEDICARE A & B LATE ENTRY FROM 10-05-18, APPROXIMATELY 0900 HOURS. Discharge Planning Comments: CM MET WITH PT IN ROOM TO DISCUSS DISCHARGE NEEDS AND PLANNING, DISCUSSED POSSIBLE NEED OF IV ANTIBIOTICS FOR 4 WEEKS. PT WAS SUPRISED AND REPORTS NOT KNOWING THIS. CM DISCUSSED OPTIONS OF RETURNING HOME, STAYING WITH FAMILY OR FRIEND, OUTPATIENT AND CUSTODIAL FACILITY POSSIBITIES FOR ANTIBIOTIC ADMINISTRATION, DEPENDING ON HOW OFTEN THE DOSE WOULD BE REQUIRED TO BE ADMINISTERED. PT UNSURE OF WHAT SHE WILL DO IF THE ANTIBIOTICS ARE NEEDED AND WILL DISCUSS THIS WITH HER DAUGHTER. CM LEFT CUSTODIAL FACILITY CHOICE LIST, POINTED OUT CM CONTACT NUMBER FOR ANY QUESTIONS OR NEEDS. CM INFORMED PT THAT CM WILL BE FOLLOWING UP WITH PT FOR CONTINUED DISCHARGE PLANNING. CM SPOKE TO DR. VALENTIN AT THE NURSES STATION, SHE HAS MET WITH PT AND INFORMED CM THAT PT WILL NOT REQUIRE 4 WEEKS OF IV ANTIBIOTICS. CM LATER RECEIVED CALL FROM PT'S DAUGHTER WHO INFORMED CM THAT CM SHOULD HAVE NOT BEEN DISCUSSING MEDICAL NEEDS WITH PT BEFORE THIS HAS BEEN ADDRESSED WITH THE PT BY THE DOCTOR. DAUGHTER REPORTS SHE IS PT'S POWER OF REAL ESTATE OFFICE MANAGER AND HER MOTHER IS 84 YEARS OLD AND VERY UPSET. CM APOLOGIZED FOR ANY UPSET CAUSED, INFORMED DAUGHTER THAT CM WAS DIRECTED TO SPEAK TO PT REGARDING DISCHARGE PLAN AND THAT THE CERTIFIED HYPERBARIC TECHNOLOGIST HAD STATED THAT 4 WEEKS OF IV ANTIBIOTICS WOULD BE ORDERED. PT'S DAUGHTER REPORTS SPEAKING TO DR. VALENTIN WHO STATES OTHERWISE AND THAT THE DOCTORS NEED TO BE ADDRESSING THIS WITH PT, NOT THE FILLER SPREADER. CM INFORMED PT'S DAUGHTER THAT HER CONCERNS WOULD BE PASSED ALONG TO THE CERTIFIED HYPERBARIC TECHNOLOGIST AT 'S 1000 AM MEETING THIS MORNING. PT'S DAUGHTER APOLOGIZED TO CM AND STATES SHE IS CONCERNED ABOUT HER MOTHER AND INFORMED CM THAT IF PT'S PLAN IS TO DISCHARGE HOME AND THAT IF PT NEEDS ASSISTANCE, DAUGHTER WILL BE PROVIDING ASSISTANCE. CM INFORMED MULTIDISCIPLINARY TEAM OF PT'S DAUGHTER'S CONCERNS. CM TO CONTINUE TO FOLLOW AND ASSIST WITH DISCHARGE PLANNING IF NEEDED. Rivet Bucker: Heri Muro DCP- Discharge Planning Updated by [email or web address]: Heri Muro on 10/03/18 4:[address] Patient Name: SHARON SELLERS Admission Status: ER Accout number: [id number] Admission Date: 10-01-2018 : 1935 Admission Diagnosis: Attending: JONO VEGA Current LOS: 2 Anticipated DC Date: Planned Disposition: Home Primary Insurance: MEDICARE A & B Discharge Planning Comments: CM RECEIVED ORDER FOR "PT". CHART REVIEWED, THERAPY ORDERED. CM MET WITH PT IN ROOM TO DISCUSS DISCHARGE PLANNING AND NEEDS. PT REPORTS LIVING AT HOME INDEPENDENTLY AND ALONE AT [facility]. PT HAS MEAL SERVICES AND DRIVES HER GOLF CART TO THE LUNCH ROOM FOR MEALS. PT HAS HOUSEKEEPING SERVICES. . PT HAS NO MEDICAL EQUIPMENT.. CM DISCUSSED AVAILABILITY OF HOME HEALTH, REHAB SERVICES AND MEDICAL EQUIPMENT. PT DENIES DISCHARGE NEEDS, REPORTS [facility] WILL PICK HER UP FOR DISCHARGE HOME. IMPORTANT MESSAGE FROM MEDICARE PROVIDED AND EXPLAINED. Rivet Bucker: Heri Muro DCPIA - Discharge Planning Initial Assessment Updated by [id number]: Heri Muro on 10/03/18 5:52 pm * Is the patient Alert and Oriented? Yes * How many steps to enter\\exit or inside your home? NONE * PCP DR. MTZ IN [place] * Pharmacy [facility] [place] * Preadmission Environment Independent [facility] Apartment * Other Environment [facility] [place] * Facility Name [facility] * ADLs Independent * Equipment None * Other Equipment NO MEDICAL EQUIPMENT PROVIDER PREFERENCE * List name and contact numbers for known caregivers / representatives who currently or will assist patient after discharge: NANCY CAGE DTR, LAKISHA RENDON, * Verbal permission to speak to the caregivers and representatives has been obtained from the patient. N/A * Community resources currently utilized None * Please name any agencies selected above. NONE * Additional services required to return to the preadmission environment? No * Can the patient safely return to the preadmission environment? Yes * Has this patient been hospitalized within the prior 30 days at any hospital? No Coverage Notice Reviewer: [email or web address] - Heri Muro Notice Issued Date-Time: 10/03/2018 12:10 Notice Type: IM Discharge Notice Notice Delivered To: Patient Relationship to Patient: General Counselor Name: Delivery Method: HAND - Hand Delivered Catarina Days: Prior Verbal Notification: Recipient Understood Notice: Yes Recipient Signature: Yes Med Rec Note Co-signed by Attending: Coverage Notice Comment: Reviewer: [id number] Muro Notice Issued Date-Time: 10/06/2018 13:40 Notice Type: IM Discharge Notice Notice Delivered To: Patient Relationship to Patient: General Counselor Name: Delivery Method: HAND - Hand Delivered Catarina Days: Prior Verbal Notification: Recipient Understood Notice: Yes Recipient Signature: Yes Med Rec Note Co-signed by Attending: Coverage Notice Comment: Reviewer: [id number] Muro Notice Issued Date-Time: 10/06/2018 17:05 Notice Type: Patient Choice Letter Notice Delivered To: Family Member Relationship to Patient: Daughter General Counselor Name: LAKISHA Delivery Method: HAND - Hand Delivered Catarina Days: Prior Verbal Notification: Recipient Understood Notice: Yes Recipient Signature: Yes Med Rec Note Co-signed by Attending: Coverage Notice Comment: NO HOME HEALTH PREFERENCE Last DP export: 10/06/18 4:24 p Patient Name: SHARON SELLERS Page [id number] at 1739 All edits/amendments must be made on the electronic document DICTATION DATE: 10/06/181737 CABLE INSTALLATION MANAGER: SURESH 10/06/181737 RPT#: [id number] DC DATE: STATUS: ADM IN [facility] [address] [place] [address] END OF REPORT
--- NOTE | 2018-10-07 06:32 | MORECARE ---
CASE MANAGEMENT DISCHARGE SUMMARY PATIENT: SHARON SELLERS UNIT: [id number] ADM DATE: 10/01/18 AGE: 82 : 33 SEX: F ROOM/BED: D.5906 AUTHOR: SYDNEEDOC PHYSICIAN: REFERRING PHYSICIAN: JONO VEGA MD DATE OF SERVICE: 10/07/18 Discharge Plan Patient Name: SHARON SELLERS Facility: [facility]:[place] : 1935 Planned Disposition: Home with Home Health Anticipated Discharge Date: 10/06/18 Discharge Date: 10/06/2018 Expected LOS: 5 Initial Reviewer: [email or web address] Initial Review Date: 10/03/2018 Generated: 10/07/18 7:32 am Comments DCP- Discharge Planning Updated by [email or web address]: Heri Muro on 10/06/18 4:[address] Patient Name: SHARON SELLERS Encounter No: [id number] : 1935 Primary Insurance: MEDICARE A & B Anticipated DC Date: 10-06-2018 Planned Disposition: Home with Home Health External Planned Provider: [facility] DCP follow-up note: CM SPOKE TO PT IN ROOM AT ABOUT 1330 HOURS REGARDING DISCHARGE PLANNING AND NEEDS. CM DISCUSSED AVAILABILTY OF HOME HEALTH, MEDICAL EQUIPMENT AND REAB SERVICES, PT DENIES NEEDS, REPORTS HER DAUGHTER WILL TRANSPORT HER HOME AT DISCHARGE. CM LATER RECEIVED CALL FROM PT ASKING CM TO COME TO HER ROOM. CM MET WITH PT AND DAUGHTER LAKISHA IN ROOM AND DISCUSSED DISCHARGE NEEDS. PT'S DAUGHTER REPORTS THEY ASSIST WITH MEDICATION MANAGEMENT AND NEED NO FURTHER SERVICES. BOX STORAGE WORKER NURSE NOTFIED. AT ABOUT 1700 HOURS, PT'S DAUGHTER LAKISHA REPORTS PT CHANGED HER MIND, WANTS HOME HEALTH AND HAS NO PREFERENCE ON PROVIDER. THEY ARE GOING HOME NOW AND ASKED CM TO SET IT UP AND LET THEM KNOW. LAKISHA LEFT HER PHONE NUMBER TO CONFIRM ARRANGEMENT AT [phone]. CM CALLED [facility], , NOTIFIED OF REFERRAL, ELIE PETROLEUM REFINERY LABORER NURSE NOTIFIED BY MESSAGE. CM FAXED REFERRAL TO [facility] AT [phone]. CM NOTIFED LAKISHA VIA PHONE. Heri Muro, CASE MANAGEMENT DCP- Discharge Planning Updated by [email or web address]: Heri Muro on 10/06/18 6:[address] Patient Name: SHARON SELLERS Admission Status: ER Accout number: [id number] Admission Date: 10-01-2018 : 1935 Admission Diagnosis:NAUSEA Attending: JONO VEGA Current LOS: 5 Anticipated DC Date: Planned Disposition: Home Primary Insurance: MEDICARE A & B LATE ENTRY FROM 10-05-18, APPROXIMATELY 0900 HOURS. Discharge Planning Comments: CM MET WITH PT IN ROOM TO DISCUSS DISCHARGE NEEDS AND PLANNING, DISCUSSED POSSIBLE NEED OF IV ANTIBIOTICS FOR 4 WEEKS. PT WAS SUPRISED AND REPORTS NOT KNOWING THIS. CM DISCUSSED OPTIONS OF RETURNING HOME, STAYING WITH FAMILY OR FRIEND, OUTPATIENT AND [facility] FACILITY POSSIBITIES FOR ANTIBIOTIC ADMINISTRATION, DEPENDING ON HOW OFTEN THE DOSE WOULD BE REQUIRED TO BE ADMINISTERED. PT UNSURE OF WHAT SHE WILL DO IF THE ANTIBIOTICS ARE NEEDED AND WILL DISCUSS THIS WITH HER DAUGHTER. CM LEFT [facility] FACILITY CHOICE LIST, POINTED OUT CM CONTACT NUMBER FOR ANY QUESTIONS OR NEEDS. CM INFORMED PT THAT CM WILL BE FOLLOWING UP WITH PT FOR CONTINUED DISCHARGE PLANNING. CM SPOKE TO DR. VALENTIN AT THE NURSES STATION, SHE HAS MET WITH PT AND INFORMED CM THAT PT WILL NOT REQUIRE 4 WEEKS OF IV ANTIBIOTICS. CM LATER RECEIVED CALL FROM PT'S DAUGHTER WHO INFORMED CM THAT CM SHOULD HAVE NOT BEEN DISCUSSING MEDICAL NEEDS WITH PT BEFORE THIS HAS BEEN ADDRESSED WITH THE PT BY THE DOCTOR. DAUGHTER REPORTS SHE IS PT'S POWER OF LINUX DEVOPS ENGINEER AND HER MOTHER IS 84 YEARS OLD AND VERY UPSET. CM APOLOGIZED FOR ANY UPSET CAUSED, INFORMED DAUGHTER THAT CM WAS DIRECTED TO SPEAK TO PT REGARDING DISCHARGE PLAN AND THAT THE COST AND RISK ANALYSIS MANAGER HAD STATED THAT 4 WEEKS OF IV ANTIBIOTICS WOULD BE ORDERED. PT'S DAUGHTER REPORTS SPEAKING TO DR. VALENTIN WHO STATES OTHERWISE AND THAT THE DOCTORS NEED TO BE ADDRESSING THIS WITH PT, NOT THE TIME SIGNAL WIRER. CM INFORMED PT'S DAUGHTER THAT HER CONCERNS WOULD BE PASSED ALONG TO THE COST AND RISK ANALYSIS MANAGER AT 'S 1000 AM MEETING THIS MORNING. PT'S DAUGHTER APOLOGIZED TO CM AND STATES SHE IS CONCERNED ABOUT HER MOTHER AND INFORMED CM THAT IF PT'S PLAN IS TO DISCHARGE HOME AND THAT IF PT NEEDS ASSISTANCE, DAUGHTER WILL BE PROVIDING ASSISTANCE. CM INFORMED MULTIDISCIPLINARY TEAM OF PT'S DAUGHTER'S CONCERNS. CM TO CONTINUE TO FOLLOW AND ASSIST WITH DISCHARGE PLANNING IF NEEDED. Tar Chaser: Heri Muro DCP- Discharge Planning Updated by [email or web address]: Heri Muro on 10/03/18 4:[address] Patient Name: SHARON SELLERS Admission Status: ER Accout number: [id number] Admission Date: 10-01-2018 : 1935 Admission Diagnosis: Attending: JONO VEGA Current LOS: 2 Anticipated DC Date: Planned Disposition: Home Primary Insurance: MEDICARE A & B Discharge Planning Comments: CM RECEIVED ORDER FOR "PT". CHART REVIEWED, THERAPY ORDERED. CM MET WITH PT IN ROOM TO DISCUSS DISCHARGE PLANNING AND NEEDS. PT REPORTS LIVING AT HOME INDEPENDENTLY AND ALONE AT THE [facility]. PT HAS MEAL SERVICES AND DRIVES HER GOLF CART TO THE LUNCH ROOM FOR MEALS. PT HAS HOUSEKEEPING SERVICES. . PT HAS NO MEDICAL EQUIPMENT.. CM DISCUSSED AVAILABILITY OF HOME HEALTH, REHAB SERVICES AND MEDICAL EQUIPMENT. PT DENIES DISCHARGE NEEDS, REPORTS THE [facility] WILL PICK HER UP FOR DISCHARGE HOME. IMPORTANT MESSAGE FROM MEDICARE PROVIDED AND EXPLAINED. Tar Chaser: Heri Muro DCPIA - Discharge Planning Initial Assessment Updated by [email or web address]: Heri Muro on 10/03/18 5:52 pm * Is the patient Alert and Oriented? Yes * How many steps to enter\\exit or inside your home? NONE * PCP DR. MTZ IN [place] * Pharmacy [facility] * Preadmission Environment Independent [facility]ment * Other [place] [facility] [place] Facility Name [facility] * ADLs Independent * Equipment None * Other Equipment NO MEDICAL EQUIPMENT PROVIDER PREFERENCE * List name and contact numbers for known caregivers / representatives who currently or will assist patient after discharge: NANCY CAGE DTR, LAKISHA RENDON, * Verbal permission to speak to the caregivers and representatives has been obtained from the patient. N/A * Community resources currently utilized None * Please name any agencies selected above. NONE * Additional services required to return to the preadmission environment? No * Can the patient safely return to the preadmission environment? Yes * Has this patient been hospitalized within the prior 30 days at any hospital? No Coverage Notice Reviewer: [id number] - Heri Muro Notice Issued Date-Time: 10/03/2018 12:10 Notice Type: IM Discharge Notice Notice Delivered To: Patient Relationship to Patient: Middle School Director Name: Delivery Method: HAND - Hand Delivered Catarina Days: Prior Verbal Notification: Recipient Understood Notice: Yes Recipient Signature: Yes Med Rec Note Co-signed by Attending: Coverage Notice Comment: Reviewer: JOSEFINA Muro Notice Issued Date-Time: 10/06/2018 13:40 Notice Type: IM Discharge Notice Notice Delivered To: Patient Relationship to Patient: Middle School Director Name: Delivery Method: HAND - Hand Delivered Catarina Days: Prior Verbal Notification: Recipient Understood Notice: Yes Recipient Signature: Yes Med Rec Note Co-signed by Attending: Coverage Notice Comment: Reviewer: JOSEFINA Muro Notice Issued Date-Time: 10/06/2018 17:05 Notice Type: Patient Choice Letter Notice Delivered To: Family Member Relationship to Patient: Daughter Middle School Director Name: LAKISHA Delivery Method: HAND - Hand Delivered Catarina Days: Prior Verbal Notification: Recipient Understood Notice: Yes Recipient Signature: Yes Med Rec Note Co-signed by Attending: Coverage Notice Comment: NO HOME HEALTH PREFERENCE Last DP export: 10/06/18 4:39 p Patient Name: SHARON SELLERS Page [phone] at 0632 All edits/amendments must be made on the electronic document DICTATION DATE: 10/07/18631 NEWS CAMERAMAN: SURESH 10/07/1832 RPT#: [id number] DC DATE:10/06/18 STATUS: DIS IN [facility] [address] [place] [address] END OF REPORT
[2018-10-14] MEDS ORDERED: PLAVIX75 MG PO (09:32)
== END 2018-10-06 17:50 | disposition home health service (06) | DRG 871 ==
LOC: D.ER 05:15 → D.M2 10:30
PROVIDERS: Family Medicine; ADMIT Family Medicine; ATTEND Family Medicine
PROC: 0DB68ZX Excision of Stomach, Via Natural or Artificial Opening Endoscopic, Diagnostic (ICD-10-PCS; principal; 2018-10-03)
PROC: 0D758ZZ Dilation of Esophagus, Via Natural or Artificial Opening Endoscopic (ICD-10-PCS; 2018-10-03)
DX: A41.50 Gram-negative sepsis, unspecified (principal); J18.9 Pneumonia, unspecified organism; C34.90 Malignant neoplasm of unspecified part of unspecified bronchus or lung; N39.0 Urinary tract infection, site not specified; I25.10 Atherosclerotic heart disease of native coronary artery without angina pectoris; F41.9 Anxiety disorder, unspecified; M54.9 Dorsalgia, unspecified; G89.29 Other chronic pain; K21.9 Gastro-esophageal reflux disease without esophagitis; D64.9 Anemia, unspecified; E87.6 Hypokalemia; K44.9 Diaphragmatic hernia without obstruction or gangrene; K22.2 Esophageal obstruction; B96.20 Unspecified Escherichia coli [E. coli] as the cause of diseases classified elsewhere; N81.10 Cystocele, unspecified; N81.89 Other female genital prolapse

== ENCOUNTER 2018-10-14 19:13 | Inpatient (IN) | payer MEDICARE, BC, OTHER ==
[~2018-10-14] VITALS: Ht 160 cm; Wt 68.5 kg
[~2018-10-14 19:13] MED LIST changes: +CIPRO500 MG PO; +LOMOTIL 2.5-0.1 EAC1 PO; +PHENERGAN25 MG RC
--- NOTE | 2018-10-14 22:15 | NUR ---
GAVE SENNECOT AND COLACE STOOL SOFTENERS AND BEGAN SOAP SWAPNA ENEMAS. SOME HARD FORMED BROWN STOOL CAME OUT IN THE BEGINNING AND NOW JUST BROWN WATER. PT HAS RECEIVED TWO FULL BAGS WITH RESTS IN BETWEEN. PT STATES BLADDER IS PROLAPSED AND FEELS LIKE IT IS MOVING DOWN FURTHER. "TISSUE" IS VISUALIZED STARTING TO PROTRUDE AT VAGINAL OPENING. INSTRUCTED PT NOT TO "STRAIN OR BEAR DOWN" WHILE ON TOILET TO EXPELL ENEMAS.
[2018-10-14 22:53] VITALS: BP 126/64; BMI 26.8
[2018-10-15 00:19] VITALS: BP 130/70
[2018-10-15 04:50] VITALS: BP 175/89
[2018-10-15 05:25] LABS: BASOPHILS 0.7 % (0-2); EOSINOPHILS 2.9 % (0-7); HEMATOCRIT 33.8 % (36.0-48.0); HEMOGLOBIN 11.1 g/dL (12-16); LYMPHOCYTES 31.8 % (15-50); MCH 29.7 pg (26.0-34.0); MCHC 32.8 g/dL (31.0-37.0); MCV 90.4 fL (80.0-100.0); MEAN PLATELET VOLUME 9.2 fL (7.4-10.4); MONOCYTES 8.2 % (2-11); NEUTROPHILS 56.4 % (40-80); PLATELET COUNT 286 10x3/uL (130-400); RBC 3.74 10x6/uL (4.00-5.40); RDW 15.8 % (11.5-14.5); WBC 5.8 10x3/uL (4.8-10.8)
--- NOTE | 2018-10-15 05:30 | NUR ---
RESUMED SOAP SUDS ENEMAS. CHUNKS OF FORMED STOOL AND WATER. PT NOW RESTING AFTER RECEIVING ON FULL BAG.
[2018-10-15 05:46] LABS: ANION GAP 10.2 mmol/L (8-16); CALCIUM 9.2 mg/dL (8.5-10.1); CARBON DIOXIDE 30.1 mmol/L (21.0-32.0); CREATININE - SERUM 1.1 mg/dL (0.6-1.3); MAGNESIUM - SERUM 2.5 mg/dL (1.8-2.4); PHOSPHOROUS 4.1 mg/dL (2.5-4.9); POTASSIUM - SERUM 4.3 mmol/L (3.5-5.1)
[2018-10-15 08:58] VITALS: BP 158/75
--- NOTE | 2018-10-15 11:05 | NUR ---
ADMINISTERED SOAP SWAPNA ENEMA AND ONLY GOT ABOUT 30CC'S IN BEFORE PT REQUESTED STOP AND SHE NEEDED TO USE RESTROOM. PATIENT WAS ABLE TO GO AND BRODUCE A MEDIUM SIZE BM SOFT IN TEXTURE, ADVISED PT I WILL ALLOW HER TO REST AND WE WILL DO AGAIN IN ABOUT AN HOUR OR RIGHT AFTER LUNCH. NO OTHER NEEDS VOICED, DAUGHTER AT BEDSIDE CONTINUE WITH PLAN OF CARE
[2018-10-15 11:49] VITALS: BMI 26.7
[2018-10-15 12:25] VITALS: Ht 160 cm; Wt 68.5 kg
[2018-10-15 12:35] VITALS: BP 125/65
[2018-10-15 17:36] VITALS: BP 136/65
[2018-10-15 20:21] VITALS: BP 121/55
--- NOTE | 2018-10-15 22:06 | NUR ---
PT ALERT & ORIENTED. UP AD JOEL. PT HAD SOFT FORMED BM. GAVE SCHEDULED COLACE. COMPLETE ASSESSMENT PER FLOWSHEET. NO OTHER NEEDS. WILL CONTINUE TO MONITOR.
[2018-10-16] VITALS (7 sets, daily range): BP systolic 112–142; BP diastolic 53–79
[2018-10-16 06:24] LABS: ANION GAP 12.1 mmol/L (8-16); CALCIUM 8.8 mg/dL (8.5-10.1); CARBON DIOXIDE 26.9 mmol/L (21.0-32.0); CREATININE - SERUM 0.9 mg/dL (0.6-1.3); MAGNESIUM - SERUM 2.1 mg/dL (1.8-2.4)
[2018-10-16 06:38] LABS: BASOPHILS 0.8 % (0-2); HEMATOCRIT 35.9 % (36.0-48.0); HEMOGLOBIN 11.7 g/dL (12-16); LYMPHOCYTES 35.2 % (15-50); MCH 29.5 pg (26.0-34.0); MCHC 32.6 g/dL (31.0-37.0); MCV 90.4 fL (80.0-100.0); MEAN PLATELET VOLUME 9.3 fL (7.4-10.4); MONOCYTES 13.7 % (2-11); NEUTROPHILS 47.3 % (40-80); PLATELET COUNT 279 10x3/uL (130-400); RBC 3.97 10x6/uL (4.00-5.40); RDW 15.9 % (11.5-14.5)
--- NOTE | 2018-10-16 07:48 | NUR ---
ALERT AND ORIENTED. LUNGS CLEAR BILATERALLY IN ALL CORONADO. HEART SOUNDS S1 AND S2 HEARD IN ALL CORONADO. BOWEL SOUNDS ACTIVE X 4. SKIN INTACT WITHOUT REDNESS. NO IV. DENIES PAIN. DENIES NEEDS. BED LOW. CALL POWELL AND PERSONAL ITEMS IN REACH. WILL CONTINUE TO MONITOR.
--- NOTE | 2018-10-16 09:55 | NUR ---
PATIENT SLEEPING. WILL CONTINUE TO MONITOR.
--- NOTE | 2018-10-16 10:08 | NUR ---
SPOKE WITH DR ACEVEDO ABOUT PATIENT DISCHARGING. STATED WOULD KEEP PT OVERNIGHT SINCE ALREADY SCHEDULED FOR OP PROCEDURE AT HOSPITAL TOMORROW WITH DR SCOTT. ASKED IF NEEDED TO START IV OR USE LEFT CHEST PORT. STATED COULD USE PORT BUT DONT ACCESS. STATES THEY WILL ACCESS TOMORROW BEFORE PROCEDURE.
--- NOTE | 2018-10-16 11:30 | NUR ---
SMALL BM NOTED AFTER SOAP SUDS ENEMA.
--- NOTE | 2018-10-16 14:41 | NUR ---
ADMISSION ASSESSMENT COMPLETE. FALL PRECAUTIONS IN PLACE. IN ROOM CONTINUING TO MONITOR PATIENT.
--- NOTE | 2018-10-16 16:14 | NUR ---
RESTING IN BED. DENIES PAIN. DENIES NEEDS. WILL CONTINUE TO MONITOR.
--- NOTE | 2018-10-16 18:36 | NUR ---
RESTING IN BED. DENIES PAIN. DENIES NEEDS. WILL CONTIUE TO MONITOR.
[2018-10-16 21:10] LABS: APPEARANCE CLEAR (CLEAR); COLOR YELLOW (YELLOW)
[2018-10-16 21:11] LABS: BILIRUBIN NEGATIVE (NEGATIVE); GLUCOSE NEGATIVE (NEGATIVE); KETONE NEGATIVE (NEGATIVE); NITRITE NEGATIVE (NEGATIVE); PROTEIN NEGATIVE (NEGATIVE); UROBILINOGEN NORMAL (NORMAL)
[2018-10-16 21:12] LABS: BACTERIA FEW /hpf (NONE SEEN); RED CELLS - URINE RARE /hpf (0-5); WHITE CELLS - URINE RARE /hpf (0-5)
--- NOTE | 2018-10-16 22:00 | NUR ---
PT SHOWERED/HIBICLENS DONE. BED AND GOWN CHANGED. HOME MEDS NOT ADDRESSED. CALLED DR. HOPPER AND GAVE PT'S NIGHT MEDS APPROVED BY HIM. REMINDED PT TO BE NPO AFTER MIDNIGHT. NO OTHER NEEDS. WILL CONTINUE TO MONITOR.
[2018-10-17 04:00] VITALS: BP 138/79
[2018-10-17 05:37] LABS: BASOPHILS 0.3 % (0-2); EOSINOPHILS 2.2 % (0-7); HEMOGLOBIN 11.9 g/dL (12-16); IMMATURE GRANULOCYTES 0.2 % (0-5); LYMPHOCYTES 35.1 % (15-50); MCH 29.6 pg (26.0-34.0); MCHC 33.1 g/dL (31.0-37.0); MCV 89.6 fL (80.0-100.0); MEAN PLATELET VOLUME 9.3 fL (7.4-10.4); MONOCYTES 8.7 % (2-11); NEUTROPHILS 53.5 % (40-80); PLATELET COUNT 285 10x3/uL (130-400); RBC 4.02 10x6/uL (4.00-5.40); RDW 15.7 % (11.5-14.5)
[2018-10-17 05:50] LABS: ANION GAP 13.7 mmol/L (8-16); CALCIUM 8.8 mg/dL (8.5-10.1); POTASSIUM - SERUM 3.7 mmol/L (3.5-5.1)
[2018-10-17 09:22] VITALS: BP 167/70
--- NOTE | 2018-10-17 11:09 | NUR ---
PT RESTING IN BED. NO SIGNS OF DISTRESS. IV TO RIGHT HAND PATENT NO REDNESS OR TENDERNESS. HAS BRADEN NO KINKS PATENT. DENIES ANY FURTHER NEED AT THIS TIME. CALL LIGHT IN REACH. BED LOW POSITON. FAMILY AT BEDSIDE.
--- NOTE | 2018-10-17 18:45 | NUR ---
I have reviewed this patient and I concur with the Shift Assessment completed by the Licensed Practical Nurse today this shift.
--- NOTE | 2018-10-17 19:15 | NUR ---
A/O WITH NO SIGNS OF ACUTE DISTRESS. IV TO THE RT HAND SL AND PORT TO THE LT CHEST. BRADEN IN PLACE. DENIES PAIN OR OTHER NEEDS AT THIS TIME. CONTINUE WITH PLAN OF CARE.
[2018-10-17 20:00] VITALS: BP 124/58
[2018-10-18 04:00] VITALS: BP 181/81
[2018-10-18 06:34] LABS: BASOPHILS 0.2 % (0-2); EOSINOPHILS 1.7 % (0-7); HEMOGLOBIN 11.1 g/dL (12-16); IMMATURE GRANULOCYTES 0.2 % (0-5); LYMPHOCYTES 25.2 % (15-50); MCH 29.6 pg (26.0-34.0); MCHC 32.6 g/dL (31.0-37.0); MCV 90.7 fL (80.0-100.0); MEAN PLATELET VOLUME 9.6 fL (7.4-10.4); MONOCYTES 10.3 % (2-11); NEUTROPHILS 62.4 % (40-80); PLATELET COUNT 248 10x3/uL (130-400); RBC 3.75 10x6/uL (4.00-5.40); RDW 15.8 % (11.5-14.5)
[2018-10-18 06:43] LABS: WBC 8.1 10x3/uL (4.8-10.8)
[2018-10-18 06:44] LABS: ANION GAP 10.2 mmol/L (8-16); CALCIUM 8.5 mg/dL (8.5-10.1); CARBON DIOXIDE 27.3 mmol/L (21.0-32.0); CREATININE - SERUM 0.8 mg/dL (0.6-1.3); MAGNESIUM - SERUM 1.7 mg/dL (1.8-2.4); POTASSIUM - SERUM 3.5 mmol/L (3.5-5.1)
[2018-10-18 09:08] VITALS: BP 106/49
--- NOTE | 2018-10-18 09:30 | NUR ---
PACKING REMOVED BY DR SCOTT. BRADEN REMOVED BY MYSELF. SLIGHT DISCOMFORT DURING PROCEDURE. DENIES ANY PAIN. DAUGHTER IN ROOM. CL IN REACH. WCTM
--- NOTE | 2018-10-18 10:16 | NUR ---
DAUGHTER REQUESTING MOTHER TO HAVE HER PROZAC OR "SHE WILL BE CRYING ON ME FOR DAYS" REQUESTS THAT WE NOT GIVE HER 10 MG OF PERCOCET. SAYING, "HOPEFULLY TYLENOL THE REST OF THE DAY" CL IN REACH WILL. GET THE ORDERED PROSAC.
[2018-10-18 12:17] VITALS: BP 102/59
--- NOTE | 2018-10-18 15:44 | NUR ---
Nutrition Follow-up: Diet: Regular PO intake: 53% avg. x last 4 meals (100% of today) Labs and meds reviewed Last BM 10/17/18 Wt: 151# (10/15/18) RD Following
[2018-10-18 16:45] VITALS: BP 89/50
--- NOTE | 2018-10-18 18:39 | NUR ---
FAMILY WALKED WITH PATIENT AROUND THE UNIT 2X. THAT WOULD BE 500 FT. PATIENT CURRENTLY SITTING IN THE CHAIR. FAMILY IN ANOTHER CHAIR. FAMILY CO FACT THAT SHE HASN'T NOT HAD ANY OF HER HOME MEDICATION. I RELAYED THIS TO DR SAMUEL AND HE TOLD ME TO HAVE KACEY GASPAR APN TO RENEW THE HOME MEDS. MESSAGE RELAYED. CL IN REACH. NO FURTHER CONCERNS AT THIS TIME
--- NOTE | 2018-10-18 19:00 | NUR ---
A/O WTIH NO ACUTE SIGNS OF DISTRESS NOTED. IV TO THE RT HAND SL AND CDI. PT ALSO HAS LT CHEST PORT THAT IS NOT ACCESSED. 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 TEGAN ALARM IN PLACE. WAS NOTIFIED THAT DAUGHTER REQUESTS TO GO OVER HOME REC AT SHIFT REPORT. WILL PLAN TO DO SO WHEN DAUGHTER ARRIVES TO ROOM. PT DENIES PAIN OR OTHER NEEDS AT THIS TIME. CONTINUE WITH PLAN OF CARE.
[2018-10-18 20:00] VITALS: BP 104/57
[2018-10-19] VITALS: BP 125/62
--- NOTE | 2018-10-19 03:10 | NUR ---
SITTING AT THE NURSES STATION AND HEARD A LOUD NOISE FROM PT ROOM. WALKED IN AND FOUND PT LAYING ON FLOOR BETWEEN BATHROOM AND BED. NO INJURY TO PT NOTED WITH NO COMPLAINTS OF PAIN. ASSISTED TO BEDSIDE CAMMODE AND INTO BED. CALLED KACEY GAMEZ, WANTED NEURO CHECKS Q4. BOTH DAUGHTERS CALLED TO NOTIFY ABOUT FALL. HOUSE SUPERVOSOR ALSO NOTIFIED.
[2018-10-19 04:00] VITALS: BP 127/64
--- NOTE | 2018-10-19 05:00 | NUR ---
WENT OVER MED REC WITH BOTH DAUGHTERS. BOTH DAUGHTERS VERIFIED THAT THE MED REC ON FILE WAS CORRECT. CONTIUE WITH PLAN OF CARE.
[2018-10-19 06:22] LABS: BASOPHILS 0.7 % (0-2); EOSINOPHILS 4.8 % (0-7); HEMATOCRIT 32.7 % (36.0-48.0); HEMOGLOBIN 10.6 g/dL (12-16); IMMATURE GRANULOCYTES 0.2 % (0-5); LYMPHOCYTES 37.4 % (15-50); MCH 29.3 pg (26.0-34.0); MCHC 32.4 g/dL (31.0-37.0); MCV 90.3 fL (80.0-100.0); MEAN PLATELET VOLUME 9.6 fL (7.4-10.4); MONOCYTES 11.1 % (2-11); NEUTROPHILS 45.8 % (40-80); PLATELET COUNT 244 10x3/uL (130-400); RBC 3.62 10x6/uL (4.00-5.40); RDW 15.9 % (11.5-14.5)
[2018-10-19 06:34] LABS: ANION GAP 11.6 mmol/L (8-16); CALCIUM 8.6 mg/dL (8.5-10.1); CREATININE - SERUM 0.8 mg/dL (0.6-1.3); MAGNESIUM - SERUM 1.7 mg/dL (1.8-2.4); POTASSIUM - SERUM 3.6 mmol/L (3.5-5.1)
[2018-10-19 06:44] LABS: WBC 5.8 10x3/uL (4.8-10.8)
[2018-10-19 08:28] VITALS: BP 150/68
--- NOTE | 2018-10-19 08:37 | NUR ---
AM MEDS GIVEN AT THIS TIME. PT A/O X4, RESP EVEN AND NONLABORED ON RA. RT WRIST SL. LT CHEST PORT NOTED, NO ACCESSED. SCDS ON BILAT. EMPTIED BEDSIDE COMMODE AT THIS TIME. FAMILY AT BEDSIDE, CALL LIGHT IN REACH, NAD NOTED,W ILL CONTINUE TO MONITOR.
--- NOTE | 2018-10-19 10:33 | NUR ---
PROVIDED PT WITH MIRALAX MIXED IN FRUIT PUNCH GATORADE. PT JUST FINISHED TAKING HER MAG CITRATE. PT DENIES ANY NEEDS AT THIS TIME. FAMILY AT BEDSIDE, CALL LIGHT IN REACH, TEGAN ALARM ON. SCDS OFF AT THIS TIME.
--- NOTE | 2018-10-19 11:58 | NUR ---
PT UP TO CHAIR, MUSIC GRAPHER TO GET CHAIR ALARM ON. PT DENIES ANY NEEDS AT THIS TIME. CALL LIGHT IN REACH, FAMILY AT BEDSIDE, NAD NOTED, WILL CONTINUE TO MONITOR.
[2018-10-19 12:02] VITALS: BP 144/69
--- NOTE | 2018-10-19 12:28 | NUR ---
CORE BLOWER OPERATOR HELPED PT WITH BATH, ALSO COMPLETE LINEN CHANGE DONE AT THIS TIME.
--- NOTE | 2018-10-19 15:21 | MORECARE ---
CASE MANAGEMENT DISCHARGE SUMMARY PATIENT: SHARON SELLERS UNIT: [id number] ADM DATE: 10/16/18 AGE: 82 : 33 SEX: F ROOM/BED: D.2226 AUTHOR: ALINA RANDHAWA PHYSICIAN: REFERRING PHYSICIAN: CHANO HOPPER MD DATE OF SERVICE: 10/19/18 Discharge Plan Patient Name: SHARON SELLERS Facility: [facility]:[place] : 1935 Planned Disposition: Home Anticipated Discharge Date: Discharge Date: Expected LOS: Initial Reviewer: [email or web address] Initial Review Date: 10/19/2018 Generated: 10/19/18 4:20 pm Patient Name: SHARON SELLERS Page [phone] at 1521 All edits/amendments must be made on the electronic document DICTATION DATE: 10/19/18 1520 CNS: SURESH 10/19/18 1520 RPT#: [id number] DC DATE: STATUS: ADM IN [facility] [address] [place] [address] END OF REPORT
--- NOTE | 2018-10-19 15:37 | MORECARE ---
CASE MANAGEMENT DISCHARGE SUMMARY PATIENT: SHARON SELLERS UNIT: [id number] ADM DATE: 10/16/18 AGE: 82 : 33 SEX: F ROOM/BED: D.2226 AUTHOR: ALINA RANDHAWA PHYSICIAN: REFERRING PHYSICIAN: CHANO HOPPER MD DATE OF SERVICE: 10/19/18 Discharge Plan Patient Name: SHARON SELLERS [facility] [facility] 1935 Planned Disposition: Home Anticipated Discharge Date: Discharge Date: Expected LOS: Initial Reviewer: [email or web address] Initial Review Date: 10/19/2018 Generated: 10/19/18 4:37 pm DCPIA - Discharge Planning Initial Assessment Updated by [email or web address]: Yane Schofield on 10/19/18 3:31 pm * Is the patient Alert and Oriented? Yes * How many steps to enter\exit or inside your home? 0/0 * PCP Dr. Rivas in [place] * Pharmacy [place] * [facility]readmission Environment [facility] * Facility Name [facility] * ADLs Independent * Equipment None * List name and contact numbers for known caregivers / representatives who currently or will assist patient after discharge: Jewel Alejandre [facility] - [phone] Nelly Freeman [facility] - [phone] * Verbal permission to speak to the caregivers and representatives has been obtained from the patient. Yes * Community resources currently utilized Home Health * Please name any agencies selected above. [facility] * Additional services required to return to the preadmission environment? No * Can the patient safely return to the preadmission environment? Yes * Has this patient been hospitalized within the prior 30 days at any hospital? Yes Last DP export: 10/19/18 2:21 p Patient Name: SHARON SELLERS Page [phone] at 1537 All edits/amendments must be made on the electronic document DICTATION DATE: 10/19/181536 STATE MANAGER: SURESH 10/19/181536 RPT#: [id number] DC DATE: STATUS: ADM IN [facility] [address] [place] [address] END OF REPORT
--- NOTE | 2018-10-19 15:54 | MORECARE ---
CASE MANAGEMENT DISCHARGE SUMMARY PATIENT: SHARON SELLERS UNIT: [id number] ADM DATE: 10/16/18 AGE: 82 : 33 SEX: F ROOM/BED: D.2226 AUTHOR: SYDNEE,DOC PHYSICIAN: REFERRING PHYSICIAN: CHANO HOPPER MD DATE OF SERVICE: 10/19/18 Discharge Plan Patient Name: SHARON SELLERS Facility: [facility]:[place] : 1935 Planned Disposition: Home Anticipated Discharge Date: Discharge Date: Expected LOS: Initial Reviewer: [email or web address] Initial Review Date: 10/19/2018 Generated: 10/19/18 4:53 pm Comments DCP- Discharge Planning Updated by [email or web address]: Yane Schofield on 10/19/18 2:[address] Patient Name: SHARON SELLERS Admission Status: ER Accout number: [id number] Admission Date: 10-16-2018 : 1935 Admission Diagnosis:CONSTIPATION, UNSPECIFIED Attending: WARD, Current LOS: 3 Anticipated DC Date: Planned Disposition: Home Primary Insurance: MEDICARE A & B Discharge Planning Comments: Met with patient to discuss discharge planning, she is alone in the room. States she lives at [facility]. States she takes her golf cart to the main building for her meals. States she is independent with all her care. States her daughter's drive her wear she needs to go. I called her daughter, Jewel, and Jewel states she would like to have her mother continue [facility] on discharge. She states that they were having [facility] for PT. States they haven't even started yet when she was admitted. I called [facility] and they confirm she is current and they will resume on discharge. She declines need for DME at this time. CM will continue to follow and assist with discharge planning/needs. Sales Exec: Yane Schofield DCPIA - Discharge Planning Initial Assessment Updated by [id number]: Yane Schofield on 10/19/18 3:31 pm * Is the patient Alert and Oriented? Yes * How many steps to enter\exit or inside your home? 0/0 * PCP Dr. Rivas in [place] * Pharmacy [place] * Preadmission Environment Independent [facility] Apartment * Facility Name [facility] * ADLs Independent * Equipment None * List name and contact numbers for known caregivers / representatives who currently or will assist patient after discharge: Jewel Alejandre - [facility] - [phone] Nelly Freeman [facility] - [phone] * Verbal permission to speak to the caregivers and representatives has been obtained from the patient. Yes * Community resources currently utilized Home Health * Please name any agencies selected above. [facility] * Additional services required to return to the preadmission environment? No * Can the patient safely return to the preadmission environment? Yes * Has this patient been hospitalized within the prior 30 days at any hospital? Yes External Providers External Provider: [facility] Next Contact Date: Service Request Date: Service Type: Resolution: Reviewer: Comments: Coverage Notice Reviewer: [email or web address] Ruslan Schofield Notice Issued Date-Time: 10/19/2018 15:45 Notice Type: Patient Choice Letter Notice Delivered To: Family Member Relationship to Patient: Daughter Shell Press Operator Name: Jewel Alejandre Delivery Method: HAND - Hand Delivered Catarina Days: Prior Verbal Notification: Recipient Understood Notice: Yes Recipient Signature: Yes Med Rec Note Co-signed by Attending: Coverage Notice Comment: LAINEY for [facility] Last DP export: 10/19/18 2:37 p Patient Name: SHARON SELLERS Page [phone] at 1554 All edits/amendments must be made on the electronic document DICTATION DATE: 10/19/181552 SATURATOR OPERATOR: SURESH 10/19/18 1553 RPT#: [id number] DC DATE: STATUS: ADM IN [facility] [address] [place] [address] END OF REPORT
--- NOTE | 2018-10-19 16:04 | NUR ---
PT HAD LARGE SOFT BM.
[2018-10-19 16:24] VITALS: BP 126/68
--- NOTE | 2018-10-19 19:55 | NUR ---
LYING IN BED. ALERT AND ORIENTED X4. TEAGN ALARM IN USE FOR PT SAFETY. RESP EVEN AND NONLABORED. LT ARM RESERVE. SALINE LOCK NOTED TO RT WRIST. [place]. HEARING AIDES IN USE BILAT. ASSISTED UP TO BSC. LARGE LOOSE STOOL NOTED. ASSISTED BACK TO BED. TEGAN ON. CL IN REACH.
[2018-10-19 20:00] VITALS: BP 150/72
--- NOTE | 2018-10-20 03:33 | NUR ---
HAS RESTED WELL TONIGHT. UP TO BR A FEW TIMES. HAS HAD 2 BMS SO FAR. NO DISTRESS. TEGAN ALARM ON. CL IN REACH.
[2018-10-20 04:00] VITALS: BP 159/72
[2018-10-20 06:32] LABS: BASOPHILS 0.8 % (0-2); EOSINOPHILS 5.2 % (0-7); HEMATOCRIT 34.1 % (36.0-48.0); HEMOGLOBIN 11.4 g/dL (12-16); IMMATURE GRANULOCYTES 0.2 % (0-5); LYMPHOCYTES 40.2 % (15-50); MCH 30.2 pg (26.0-34.0); MCHC 33.4 g/dL (31.0-37.0); MCV 90.2 fL (80.0-100.0); MEAN PLATELET VOLUME 9.5 fL (7.4-10.4); MONOCYTES 10.8 % (2-11); NEUTROPHILS 42.8 % (40-80); PLATELET COUNT 246 10x3/uL (130-400); RBC 3.78 10x6/uL (4.00-5.40); RDW 15.9 % (11.5-14.5); WBC 5.2 10x3/uL (4.8-10.8)
[2018-10-20 06:41] LABS: CALCIUM 8.9 mg/dL (8.5-10.1); CARBON DIOXIDE 32.9 mmol/L (21.0-32.0); CREATININE - SERUM 0.8 mg/dL (0.6-1.3); MAGNESIUM - SERUM 2.1 mg/dL (1.8-2.4); POTASSIUM - SERUM 3.9 mmol/L (3.5-5.1)
--- NOTE | 2018-10-20 08:10 | NUR ---
ALERT AND ORIENTED. LUNGS CLEAR BILATERALLY IN ALL CORONADO. HEART SOUNDS S1 AND S2 HEARD IN ALL CORONADO. BOWEL SOUNDS ACTIVE X 4. SKIN INTACT WITHOUT REDNESS. IV TO RIGHT WRIST PATENT WITHOUT REDNESS. DENIES PAIN. DENIES NEEDS. FALL PRECAUTIONS IN PLACE. BED LOW. CALL POWELL AND PERSONAL ITEMS IN REACH. WILL CONTINUE TO MONITOR.
--- NOTE | 2018-10-20 09:34 | MORECARE ---
CASE MANAGEMENT DISCHARGE SUMMARY PATIENT: SHARON SELLERS UNIT: [id number] ADM DATE: 10/16/18 AGE: 82 : 33 SEX: F ROOM/BED: D.2226 AUTHOR: ALINA RANDHAWA PHYSICIAN: REFERRING PHYSICIAN: CHANO HOPPER MD DATE OF SERVICE: 10/20/18 Discharge Plan Patient Name: SHARON SELLERS Facility: [facility]:[place] : 1935 Planned Disposition: Home Anticipated Discharge Date: Discharge Date: Expected LOS: Initial Reviewer: [email or web address] Initial Review Date: 10/19/2018 Generated: 10/20/18 10:34 am Comments DCP- Discharge Planning Updated by [email or web address]: Yane Schofield on 10/20/18 8:[address] Discharging home today. I called [facility] and spoke with Jo and informed of discharge. I have already faxed clinical to them. Home today with home health. DCP- Discharge Planning Updated by [email or web address]: Yane Schofield on 10/19/18 2:[address] Patient Name: SHARON SELLERS Admission Status: ER Accout number: [id number] Admission Date: 10-16-2018 : 1935 Admission Diagnosis:CONSTIPATION, UNSPECIFIED Attending: WARD, Current LOS: 3 Anticipated DC Date: Planned Disposition: Home Primary Insurance: MEDICARE A & B Discharge Planning Comments: Met with patient to discuss discharge planning, she is alone in the room. States she lives at [facility] in [facility] of [facility]. States she takes her golf cart to the main building for her meals. States she is independent with all her care. States her daughter's drive her wear she needs to go. I called her daughter, Jewel, and Jewel states she would like to have her mother continue [facility] on discharge. She states that they were having HHS for PT. States they haven't even started yet when she was admitted. I called [facility] and they confirm she is current and they will resume on discharge. She declines need for DME at this time. CM will continue to follow and assist with discharge planning/needs. R D Engineer: Yane Schofield DCPIA - Discharge Planning Initial Assessment Updated by [email or web address]: Yane Schofield on 10/19/18 3:31 pm * Is the patient Alert and Oriented? Yes * How many steps to enter\exit or inside your home? 0/0 * PCP Dr. Rivas in [place] * Pharmacy [facility] * Preadmission Environment Independent [facility] Apartment * Facility Name [facility] * ADLs Independent * Equipment None * List name and contact numbers for known caregivers / representatives who currently or will assist patient after discharge: Jewel Alejandre [facility] - [phone] Nelly Freeman [facility] - [phone] * Verbal permission to speak to the caregivers and representatives has been obtained from the patient. Yes * Community resources currently utilized Home Health * Please name any agencies selected above. [facility] * Additional services required to return to the preadmission environment? No * Can the patient safely return to the preadmission environment? Yes * Has this patient been hospitalized within the prior 30 days at any hospital? Yes Coverage Notice Reviewer: [email or web address] Ruslan Schofield Notice Issued Date-Time: 10/19/2018 15:45 Notice Type: Patient Choice Letter Notice Delivered To: Family Member Relationship to Patient: Daughter Hospital Staff Pharmacist Name: Jewel Alejandre Delivery Method: HAND - Hand Delivered Catarina Days: Prior Verbal Notification: Recipient Understood Notice: Yes Recipient Signature: Yes Med Rec Note Co-signed by Attending: Coverage Notice Comment: LAINEY for [facility] Reviewer: [email or web address] Ruslan Schofield Notice Issued Date-Time: 10/19/2018 17:07 Notice Type: IM Discharge Notice Notice Delivered To: Patient Relationship to Patient: Self Hospital Staff Pharmacist Name: Delivery Method: HAND - Hand Delivered Catarina Days: Prior Verbal Notification: Recipient Understood Notice: Yes Recipient Signature: Yes Med Rec Note Co-signed by Attending: Coverage Notice Comment: IMM explained, signed, given, copy placed in Mr Last DP export: 10/19/18 2:54 p Patient Name: SHARON SELLERS Page [id number] at 0934 All edits/amendments must be made on the electronic document DICTATION DATE: 10/20/18933 INFORMATICS PHYSICIAN LIAISON: SURESH 10/20/18933 RPT#: [id number] DC DATE: STATUS: ADM IN [facility] [address] [place] [address] END OF REPORT
[2018-10-20 09:39] VITALS: BP 177/64
[2018-10-20] MEDS ORDERED: COLACE100 MG PO (10:06)
--- NOTE | 2018-10-20 11:53 | NUR ---
DISCHARGE EDUCATION PROVIDED BOTH WRITTEN AND VERBAL. VERBALIZED UNDERSTANDING. DENIES FURTHER QUESTIONS. IV REMOVED FROM RIGHT WRIST WITH TIP INTACT. WAITING FOR DAUGHTER TO COME TO HOSPITAL TO TAKE HOME. STATES DAUGHTER WILL HELP DRESS WHEN ARRIVES AT HOSPITAL.
[2018-10-20 11:56] VITALS: BP 135/66
--- NOTE | 2018-10-20 12:18 | NUR ---
DISCHARGED HOME WITH DAUGHTER WITH ALL BELONGINGS.
--- NOTE | 2018-10-22 12:06 | MORECARE ---
CASE MANAGEMENT DISCHARGE SUMMARY PATIENT: SHARON SELLERS UNIT: [id number] ADM DATE: 10/16/18 AGE: 82 : 33 SEX: F ROOM/BED: D.2226 AUTHOR: ALINA RANDHAWA PHYSICIAN: REFERRING PHYSICIAN: CHANO HOPPER MD DATE OF SERVICE: 10/22/18 Discharge Plan Patient Name: SHARON SELLERS Facility: [facility]:[place] : 1935 Planned Disposition: Home Anticipated Discharge Date: Discharge Date: 10/20/2018 Expected LOS: Initial Reviewer: [email or web address] Initial Review Date: 10/19/2018 Generated: 10/22/18 1:06 pm Comments DCP- Discharge Planning Updated by [email or web address]: Yane Schofield on 10/20/18 8:[address] Discharging home today. I called [facility] and spoke with Jo and informed of discharge. I have already faxed clinical to them. Home today with home health. DCP- Discharge Planning Updated by [email or web address]: Yane Schofield on 10/19/18 2:[address] Patient Name: SHARON SELLERS Admission Status: ER Accout number: [id number] Admission Date: 10-16-2018 : 1935 Admission Diagnosis:CONSTIPATION, UNSPECIFIED Attending: WARD, Current LOS: 3 Anticipated DC Date: Planned Disposition: Home Primary Insurance: MEDICARE A & B Discharge Planning Comments: Met with patient to discuss discharge planning, she is alone in the room. States she lives at [facility] in [facility]. States she takes her golf cart to the main building for her meals. States she is independent with all her care. States her daughter's drive her wear she needs to go. I called her daughter, Jewel, and Jewel states she would like to have her mother continue [facility] on discharge. She states that they were having HHS for PT. States they haven't even started yet when she was admitted. I called [facility] and they confirm she is current and they will resume on discharge. She declines need for DME at this time. CM will continue to follow and assist with discharge planning/needs. Scientific Photographer: Yane Schofield DCPIA - Discharge Planning Initial Assessment Updated by [email or web address]: Yane Schofield on 10/19/18 3:31 pm * Is the patient Alert and Oriented? Yes * How many steps to enter\exit or inside your home? 0/0 * PCP Dr. Rivas in [place] * Pharmacy [facility] * Preadmission Environment Independent [facility] Apartment * Facility Name [facility] * ADLs Independent * Equipment None * List name and contact numbers for known caregivers / representatives who currently or will assist patient after discharge: Jewel Alejandre - [facility] - [phone] Nelly Freeman [facility] - [phone] * Verbal permission to speak to the caregivers and representatives has been obtained from the patient. Yes * Community resources currently utilized Home Health * Please name any agencies selected above. [facility] * Additional services required to return to the preadmission environment? No * Can the patient safely return to the preadmission environment? Yes * Has this patient been hospitalized within the prior 30 days at any hospital? Yes Coverage Notice Reviewer: [id number] Ruslan Schofield Notice Issued Date-Time: 10/19/2018 15:45 Notice Type: Patient Choice Letter Notice Delivered To: Family Member Relationship to Patient: Daughter Childbirth And Infant Care Teacher Name: Jewel Alejandre Delivery Method: HAND - Hand Delivered Catarina Days: Prior Verbal Notification: Recipient Understood Notice: Yes Recipient Signature: Yes Med Rec Note Co-signed by Attending: Coverage Notice Comment: LAINEY for [facility] Reviewer: [id number] Ruslan Schofield Notice Issued Date-Time: 10/19/2018 17:07 Notice Type: IM Discharge Notice Notice Delivered To: Patient Relationship to Patient: Self Childbirth And Infant Care Teacher Name: Delivery Method: HAND - Hand Delivered Catarina Days: Prior Verbal Notification: Recipient Understood Notice: Yes Recipient Signature: Yes Med Rec Note Co-signed by Attending: Coverage Notice Comment: IMM explained, signed, given, copy placed in Mr Last DP export: 10/20/18 8:34 a Patient Name: SHARON SELLERS Page [phone] at 1206 All edits/amendments must be made on the electronic document DICTATION DATE: 10/22/18 1205 CHILD CARE LEADER: SURESH 10/22/18 1205 RPT#: [id number] DC DATE:10/20/18 STATUS: DIS IN [facility] [address] [place] [address] END OF REPORT
== END 2018-10-20 12:18 | disposition home health service (06) | DRG 330 ==
LOC: D.ER 19:13 → D.MS 20:12 → OBSVTIME 20:12 → D.MS 20:12
PROVIDERS: Family Medicine; Obstetrics & Gynecology; ADMIT Family Medicine; ATTEND Family Medicine
PROC: 0JQC0ZZ Repair Pelvic Region Subcutaneous Tissue and Fascia, Open Approach (ICD-10-PCS; principal; 2018-10-17 07:00)
DX: K59.00 Constipation, unspecified (principal); C34.92 Malignant neoplasm of unspecified part of left bronchus or lung; N81.3 Complete uterovaginal prolapse; F41.9 Anxiety disorder, unspecified; M54.9 Dorsalgia, unspecified; K21.9 Gastro-esophageal reflux disease without esophagitis; I25.10 Atherosclerotic heart disease of native coronary artery without angina pectoris; Z92.21 Personal history of antineoplastic chemotherapy

== ENCOUNTER 2018-12-24 20:07 | Inpatient (IN) | payer MEDICARE, BC, OTHER ==
[~2018-12-24] VITALS: Ht 160 cm; Wt 65.8 kg
[~2018-12-24 20:07] MED LIST changes: +COLACE100 MG PO
[2018-12-24 20:52] LABS: BASOPHILS 0.5 % (0-2); CALC OSMOLALITY 289 mosm/kg (275-300); CALCIUM 8.6 mg/dL (8.5-10.1); CARBON DIOXIDE 25.6 mmol/L (21.0-32.0); CHLORIDE - SERUM 105 mmol/L (98-107); CREATININE - SERUM 1.3 mg/dL (0.6-1.3); EOSINOPHILS 1.3 % (0-7); HEMATOCRIT 30.2 % (36.0-48.0); HEMOGLOBIN 9.6 g/dL (12-16); IMMATURE GRANULOCYTES 0.3 % (0-5); INR 1.13 (0.85-1.17); LYMPHOCYTES 46.6 % (15-50); MCH 31.4 pg (26.0-34.0); MCHC 31.8 g/dL (31.0-37.0); MCV 98.7 fL (80.0-100.0); MEAN PLATELET VOLUME 9.5 fL (7.4-10.4); MONOCYTES 12.4 % (2-11); NEUTROPHILS 38.9 % (40-80); PLATELET COUNT 233 10x3/uL (130-400); POTASSIUM - SERUM 3.3 mmol/L (3.5-5.1); RBC 3.06 10x6/uL (4.00-5.40); RDW 17.3 % (11.5-14.5); SODIUM 142 mmol/L (136-145); UREA NITROGEN 17 mg/dL (7-18); WBC 3.9 10x3/uL (4.8-10.8); eGFR NON AFRICAN AMERICAN 41 mL/min (90-120)
[2018-12-24 20:53] LABS: GLUCOSE 197 mg/dL (74-106)
[2018-12-24 20:54] LABS: D-DIMER-QUANTITATIVE 1.29 ug/mLFEU (0.20-0.54)
[2018-12-24 21:08] LABS: ALBUMIN 3.3 g/dL (3.4-5.0); ALKALINE PHOSPHATASE 78 U/L (46-116); ALT (SGPT) 20 U/L (10-68); BILIRUBIN - TOTAL 0.33 mg/dL (0.2-1.3); C-REACTIVE PROTEIN 0.2 mg/dL (0.0-0.9); CREATINE KINASE 42 UL (21-215); LIPASE 128 U/L (73-393); MAGNESIUM - SERUM 1.3 mg/dL (1.8-2.4); PRO BNP 392 pg/mL (0-450); PROTEIN - SERUM 6.3 g/dL (6.4-8.2)
[2018-12-24 21:10] LABS: TROPONIN-I < 0.017 ng/mL (0.000-0.060)
[2018-12-24 21:45] LABS: APPEARANCE CLOUDY (CLEAR); BILIRUBIN NEGATIVE (NEGATIVE); COLOR YELLOW (YELLOW); GLUCOSE NEGATIVE (NEGATIVE); KETONE NEGATIVE (NEGATIVE); NITRITE POSITIVE (NEGATIVE); PROTEIN 1+ mg/dL (NEGATIVE); SPECIFIC GRAVITY 1.025 (1.005-1.020); UROBILINOGEN NORMAL (NORMAL)
[2018-12-24 21:49] LABS: BACTERIA MANY /hpf (NEGATIVE); EPITHELIAL CELLS 0-5 /hpf (0-5); WHITE CELLS - URINE >50 /hpf (NEGATIVE)
--- NOTE | 2018-12-24 23:10 | NUR ---
RECEIVED PT TO FLOOR FROM ER VIA STRETCHER. REVIEWED HOME MEDS AND HISTORY. ASSESSMENT COMPLETE PER FLOW-SHEET. ASSISTED PT UP TO BATHROOM STANDBY ASSIST. NO OTHER NEEDS. WILL CONTINUE TO MONITOR.
[2018-12-24] MEDS ORDERED: DOK100 MG PO (23:38)
[2018-12-24] MEDS ORDERED: LINZESS72 MCG PO (23:46)
[2018-12-24] MEDS ORDERED: VITAMIN B COMPLEX (23:54)
[2018-12-24] MEDS ORDERED: BAYER CHEWABLE81 MG PO (23:55)
[2018-12-24] MEDS ORDERED: ZYRTEC10 MG PO (23:57)
[2018-12-25] VITALS (7 sets, daily range): BP systolic 111–148; BP diastolic 54–76; BMI 25.7
[2018-12-25 06:38] LABS: BASOPHILS 1.3 % (0-2); EOSINOPHILS 2.3 % (0-7); HEMATOCRIT 28.8 % (36.0-48.0); HEMOGLOBIN 9.1 g/dL (12-16); MCH 31.2 pg (26.0-34.0); MCHC 31.6 g/dL (31.0-37.0); MCV 98.6 fL (80.0-100.0); MEAN PLATELET VOLUME 9.5 fL (7.4-10.4); MONOCYTES 15.4 % (2-11); PLATELET COUNT 209 10x3/uL (130-400); RBC 2.92 10x6/uL (4.00-5.40); RDW 17.6 % (11.5-14.5); WBC 3.1 10x3/uL (4.8-10.8)
--- NOTE | 2018-12-25 06:50 | NUR ---
ALERT AND ORIENTED, PLATINUM. UP WITH ASSIST. NO C/O PAIN. NO S/S OF ACUTE DISTRESS NOTED. PORT TO LEFT CHEST, NS INFUSING @ 125ML/HR. SITE PATENT WITHOUT REDNESS OR SWELLING. DENIES ANY NEEDS AT THIS TIME. CALL LIGHT IN REACH. FAMILY AT BEDSIDE. WILL CONTINUE TO MONITOR.
[2018-12-25 07:00] LABS: ALBUMIN 2.9 g/dL (3.4-5.0); ANION GAP 11.3 mmol/L (8-16); BILIRUBIN - TOTAL 0.33 mg/dL (0.2-1.3); CALCIUM 7.8 mg/dL (8.5-10.1); CARBON DIOXIDE 26.7 mmol/L (21.0-32.0); PROTEIN - SERUM 5.9 g/dL (6.4-8.2)
[2018-12-25 07:01] LABS: CREATININE - SERUM 0.9 mg/dL (0.6-1.3)
--- NOTE | 2018-12-25 10:27 | NUR ---
I have reviewed this patient and I concur with the Shift Assessment completed by the Licensed Practical Nurse today this shift.
--- NOTE | 2018-12-25 19:21 | NUR ---
PATIENT RESTING IN BED WITH NO S/S OF DISTRESS. PATIENT REQUESTED MIRALAX MIXED IN CRANBERRY JUICE WITH MEDS. PATIENT DENIES OTHER NEEDS AT THIS TIME. BED IN LOWEST POSITION AND CALL LIGHT WITHIN REACH. ENCOURAGED THE PATIENT TO CALL IF SHE HAS NEEDS. WILL CONTINUE TO MONITOR.
[2018-12-26 00:58] VITALS: BP 140/70
[2018-12-26 05:55] VITALS: BP 147/75
[2018-12-26 06:27] LABS: BASOPHILS 0.2 % (0-2); EOSINOPHILS 1.5 % (0-7); HEMATOCRIT 29.1 % (36.0-48.0); IMMATURE GRANULOCYTES 1.2 % (0-5); LYMPHOCYTES 21.4 % (15-50); MCH 30.8 pg (26.0-34.0); MCHC 30.9 g/dL (31.0-37.0); MCV 99.7 fL (80.0-100.0); MEAN PLATELET VOLUME 9.5 fL (7.4-10.4); MONOCYTES 10.9 % (2-11); NEUTROPHILS 64.8 % (40-80); PLATELET COUNT 203 10x3/uL (130-400); RBC 2.92 10x6/uL (4.00-5.40); RDW 17.7 % (11.5-14.5)
[2018-12-26 06:36] LABS: ANION GAP 10.8 mmol/L (8-16); CALCIUM 7.9 mg/dL (8.5-10.1); CARBON DIOXIDE 25.9 mmol/L (21.0-32.0); CREATININE - SERUM 0.8 mg/dL (0.6-1.3); MAGNESIUM - SERUM 1.2 mg/dL (1.8-2.4); POTASSIUM - SERUM 3.7 mmol/L (3.5-5.1)
[2018-12-26 06:46] LABS: WBC 8.7 10x3/uL (4.8-10.8)
[2018-12-26 08:15] VITALS: BP 142/69
--- NOTE | 2018-12-26 09:57 | NUR ---
PT ALERT X 4. BREATH SOUNDS CLEAR BILAT. PORT TO LEFT CHEST, PATENT, DRESSING CDI. BOWEL SOUNDS HYPERACTIVE X 4. PT REPORTING NO PAIN AT THIS TIME. BED LOW, CALL LIGHT IN REACH. NO OTHER NEEDS AT THIS TIME.
--- NOTE | 2018-12-26 12:40 | NUR ---
Rehab Prescreening Consult recieved and the chart has been reviewed. To qualify for the ARU a patient must have the need for a minimum of two therapies such as PT and OT. She has been evaluated by PT but was signed off stating she has no need for PT at this time. She has an OT eval pending. Discussed with the CM. Zara Bardales RN Clinical Liaison, Rehab
[2018-12-26 13:35] VITALS: Ht 160 cm; Wt 65.8 kg
--- NOTE | 2018-12-26 16:55 | NUR ---
OT NOTE: PT COMPLETED BED MOB WITH SBA . PT COMPLETED SUPINE TO SIT AT EOB WITH SBA. PT COMPLETED SIT TO STANDS WITH SBA. PT COMPLETED HYGIENE TASK WITH SET UP. THANK YOU, RAHEEM HAINES
--- NOTE | 2018-12-26 18:59 | MORECARE ---
CASE MANAGEMENT DISCHARGE SUMMARY PATIENT: SHARON SELLERS UNIT: [id number] ADM DATE: 12/24/18 AGE: 83 : 33 SEX: F ROOM/BED: D.1204 AUTHOR: ALINA RANDHAWA PHYSICIAN: REFERRING PHYSICIAN: CHANO HOPPER MD DATE OF SERVICE: 12/26/18 Discharge Plan Patient Name: SHARON SELLERS Facility: [facility]:[place] : 1935 Planned Disposition: Anticipated Discharge Date: Discharge Date: Expected LOS: Initial Reviewer: [email or web address] Initial Review Date: 12/24/2018 Generated: 12/26/18 7:59 pm DCPIA - Discharge Planning Initial Assessment Updated by [email or web address]: Guerline Cabrera on 12/26/18 6:57 pm * Is the patient Alert and Oriented? Yes * How many steps to enter\exit or inside your home? * PCP ROBIN DILL * Pharmacy [facility] * Preadmission Environment Home Alone * ADLs Independent * Equipment Walker * List name and contact numbers for known caregivers / representatives who currently or will assist patient after discharge: NANCY Mercer [facility] [phone] * Verbal permission to speak to the caregivers and representatives has been obtained from the patient. Yes * Community resources currently utilized Home Health * Please name any agencies selected above. [facility] - DOESN'T WANT TO SIGN LAINEY @ THIS TIME * Additional services required to return to the preadmission environment? No * Can the patient safely return to the preadmission environment? Yes * Has this patient been hospitalized within the prior 30 days at any hospital? No Patient Name: SHARON SELLERS Page [phone] at 1859 All edits/amendments must be made on the electronic document DICTATION DATE: 12/26/181858 SPECIAL EVENTS DIRECTOR: SURESH 12/26/181858 RPT#: [id number] DC DATE: STATUS: ADM IN [facility] [address] [place] [address] END OF REPORT
--- NOTE | 2018-12-26 19:06 | MORECARE ---
CASE MANAGEMENT DISCHARGE SUMMARY PATIENT: SHARON SELLERS UNIT: [id number] ADM DATE: 12/24/18 AGE: 83 : 33 SEX: F ROOM/BED: D.1204 AUTHOR: SYDNEE,DOC PHYSICIAN: REFERRING PHYSICIAN: CHANO HOPPER MD DATE OF SERVICE: 12/26/18 Discharge Plan Patient Name: SHARON SELLERS Facility: [facility]:[place] : 1935 Planned Disposition: Anticipated Discharge Date: Discharge Date: Expected LOS: Initial Reviewer: [email or web address] Initial Review Date: 12/24/2018 Generated: 12/26/18 8:05 pm Comments DCP- Discharge Planning Updated by [email or web address]: Guerline Cabrera on 12/26/18 6:[address] Patient Name: SHARON SELLERS Admission Status: ER Accout number: [id number] Admission Date: 12-24-2018 : 1935 Admission Diagnosis: Attending: WARD, Current LOS: 2 Anticipated DC Date: Planned Disposition: Primary Insurance: MEDICARE A & B Discharge Planning Comments: CM met with patient to complete initial dc planning assessment. CM educated patient on the CM role and verbal consent given by patient to complete assessment. Patient lives at home alone where she is independent with her care. At discharge patient plans to return home and feels this is a safe discharge. CM discussed availability of home health, rehab services, and medical equipment. She stated she will have transportation home. Patient denied known discharge needs at this time. CM explained that had an eval for inpatient rehab. CM explained that once PT and OT eval patient to make sure it is safe to d/c home alone. Patient stated that she has [facility] but didn't want to sign [facility] form to resume care at this time. CM will continue to follow and will assist as needed with dc plans/needs. Credit Operations Specialist: Guerline Cabrera DCPIA - Discharge Planning Initial Assessment Updated by [id number]: Guerline Cabrera on 12/26/18 6:57 pm * Is the patient Alert and Oriented? Yes * How many steps to enter\exit or inside your home? * PCP ROBIN DILL * Pharmacy [facility] * Preadmission Environment Home Alone * ADLs Independent * Equipment Walker * List name and contact numbers for known caregivers / representatives who currently or will assist patient after discharge: NANCY LE - [phone] * Verbal permission to speak to the caregivers and representatives has been obtained from the patient. Yes * Community resources currently utilized Home Health * Please name any agencies selected above. [facility] - DOESN'T WANT TO SIGN LAINEY @ THIS TIME * Additional services required to return to the preadmission environment? No * Can the patient safely return to the preadmission environment? Yes * Has this patient been hospitalized within the prior 30 days at any hospital? No Last DP export: 12/26/18 5:59 p Patient Name: SHARON SELLERS Page [id number] at 1906 All edits/amendments must be made on the electronic document DICTATION DATE: 12/26/181904 RADIO PERFORMER: SURESH 12/26/181904 RPT#: [id number] DC DATE: STATUS: ADM IN [facility] [address] [place] [address] END OF REPORT
--- NOTE | 2018-12-26 19:12 | NUR ---
PATIENT RESTING IN BED WITH NO S/S OF DISTRESS. GUEST AT BEDSIDE. PATIENT DENIES NEEDS AT THIS TIME. BED IN LOWEST POSITION AND CALL LIGHT WITHIN REACH. ENCOURAGED THE PATIENT TO CALL IF SHE HAS NEEDS. WILL CONTINUE TO MONITOR.
[2018-12-26 20:12] VITALS: BP 181/85
--- NOTE | 2018-12-27 01:08 | NUR ---
HELPED PATIENT RESOSITION IN BED. NO S/S OF DISTRESS. ADMINISTERED MEDS PER ORDERS. PATIENT DENIES OTHER NEEDS AT THIS TIME. BED IN LOWEST POSITION AND CALL LIGHT WITHIN REACH. ENCOURAGED THE PATIENT TO CALL IF SHE HAS NEEDS. WILL CONTINUE TO MONITOR.
[2018-12-27 05:22] VITALS: BP 145/65
[2018-12-27 06:28] LABS: BASOPHILS 0.2 % (0-2); EOSINOPHILS 1.2 % (0-7); HEMATOCRIT 30.9 % (36.0-48.0); HEMOGLOBIN 9.7 g/dL (12-16); IMMATURE GRANULOCYTES 1.6 % (0-5); LYMPHOCYTES 12.1 % (15-50); MCH 31.2 pg (26.0-34.0); MCHC 31.4 g/dL (31.0-37.0); MCV 99.4 fL (80.0-100.0); MEAN PLATELET VOLUME 9.3 fL (7.4-10.4); MONOCYTES 7.7 % (2-11); NEUTROPHILS 77.2 % (40-80); PLATELET COUNT 216 10x3/uL (130-400); RBC 3.11 10x6/uL (4.00-5.40)
[2018-12-27 06:45] LABS: CALC OSMOLALITY 287 mosm/kg (275-300); CARBON DIOXIDE 25.8 mmol/L (21.0-32.0); CHLORIDE - SERUM 112 mmol/L (98-107); CREATININE - SERUM 0.7 mg/dL (0.6-1.3); GLUCOSE 93 mg/dL (74-106); POTASSIUM - SERUM 3.5 mmol/L (3.5-5.1); SODIUM 146 mmol/L (136-145); eGFR NON AFRICAN AMERICAN 84 mL/min (90-120)
[2018-12-27 06:46] LABS: MAGNESIUM - SERUM 1.8 mg/dL (1.8-2.4); UREA NITROGEN 4 mg/dL (7-18)
[2018-12-27 06:59] LABS: WBC 16.3 10x3/uL (4.8-10.8)
[2018-12-27 08:01] VITALS: BP 170/69
--- NOTE | 2018-12-27 09:57 | NUR ---
Rehab Note- OT & PT Evals completed, the patient is too functional to qualify for inpatient acute rehab at this time. Thank you for this referral! Glendy Beck RN Clinical Liaison, [facility] Rehab
--- NOTE | 2018-12-27 09:59 | NUR ---
AM MEDS GIVEN AT THIS TIME. ALSO COLLCECTED URINE SAMPLE AND WILL TAKE TO LAB. PT WANTS TO GET IN THE SHOWER, WILL FIND SHOWER CHAIR AND HELPED PT IN THE SHOWER. CALLED GARRETT WITH [facility] AND INFORMED HIM THAT I NEED A SHOWER CHAIR FOR PT AND BEDSIDE COMMODE FOR ANOTHER PT. WILL GET PT IN THE SHOWER ONCE SHOWER CHAIR IS AVAILABLE.
[2018-12-27] MEDS ORDERED: CIPRO250 MG PO (10:48)
[2018-12-27] MEDS ORDERED: MAG 6464 MG PO (10:50)
--- NOTE | 2018-12-27 13:45 | NUR ---
CALLED DR. VALENTIN AND INFORMED HER THAT DR. SANON HAD PUT IN A DISCHARGE FOR PT AND WANTED TO CHECK TO SEE IF IT WAS OK FROM HER STAND POINT FOR PT TO BE D/C TODAY.
--- NOTE | 2018-12-27 14:29 | NUR ---
INFORMED DR. SANON THAT PT AND FAMILY WANTED TO TALK TO THEM. PER DR. SANON PT HAS ALREADY BEEN DISCHARGE, DID NOT GO SEE PT.
--- NOTE | 2018-12-27 16:28 | NUR ---
OT NOTE: PT COMPLETED HYGIENE TASKS WITH SBA/CGA. THANK YOU, RAHEEM HAINES
--- NOTE | 2018-12-27 16:39 | NUR ---
PT LEFT UNIT VIA WHEELCHAIR, WITH ALL BELONGINGS, ACCOMPANIED BY DAUGHTER IN LAW, NAD NOTED.
--- NOTE | 2018-12-28 09:39 | MORECARE ---
CASE MANAGEMENT DISCHARGE SUMMARY PATIENT: SHARON ESLLERS UNIT: [id number] ADM DATE: 12/24/18 AGE: 83 : 33 SEX: F ROOM/BED: D.1204 AUTHOR: SYDNEEDOC PHYSICIAN: REFERRING PHYSICIAN: CHANO HOPPER MD DATE OF SERVICE: 12/28/18 Discharge Plan Patient Name: SHARON SELLERS Facility: [facility]:[place] : 1935 Planned Disposition: Home Anticipated Discharge Date: Discharge Date: 12/27/2018 Expected LOS: Initial Reviewer: [email or web address] Initial Review Date: 12/24/2018 Generated: 12/28/18 10:39 am Comments DCP- Discharge Planning Updated by [email or web address]: Guerline Cabrera on 12/26/18 6:[address] Patient Name: SHARON SELLERS Admission Status: ER Accout number: [id number] Admission Date: 12-24-2018 : 1935 Admission Diagnosis: Attending: WARD, Current LOS: 2 Anticipated DC Date: Planned Disposition: Primary Insurance: MEDICARE A & B Discharge Planning Comments: CM met with patient to complete initial dc planning assessment. CM educated patient on the CM role and verbal consent given by patient to complete assessment. Patient lives at home alone where she is independent with her care. At discharge patient plans to return home and feels this is a safe discharge. CM discussed availability of home health, rehab services, and medical equipment. She stated she will have transportation home. Patient denied known discharge needs at this time. CM explained that had an eval for inpatient rehab. CM explained that once PT and OT eval patient to make sure it is safe to d/c home alone. Patient stated that she has [facility] but didn't want to sign LAINEY form to resume care at this time. CM will continue to follow and will assist as needed with dc plans/needs. Charter Coordinator: Guerline Cabrera DCPIA - Discharge Planning Initial Assessment Updated by [email or web address]: Guerline Cabrera on 12/26/18 6:57 pm * Is the patient Alert and Oriented? Yes * How many steps to enter\exit or inside your home? * PCP ROBIN DILL * Pharmacy [facility] * Preadmission Environment Home Alone * ADLs Independent * Equipment Walker * List name and contact numbers for known caregivers / representatives who currently or will assist patient after discharge: NANCY LE - [phone] * Verbal permission to speak to the caregivers and representatives has been obtained from the patient. Yes * Community resources currently utilized Home Health * Please name any agencies selected above. [facility] - DOESN'T WANT TO SIGN LAINEY @ THIS TIME * Additional services required to return to the preadmission environment? No * Can the patient safely return to the preadmission environment? Yes * Has this patient been hospitalized within the prior 30 days at any hospital? No Coverage Notice Reviewer: [email or web address] Ruslan Cabrera Notice Issued Date-Time: 12/27/2018 12:15 Notice Type: IM Discharge Notice Notice Delivered To: Patient Relationship to Patient: Self Oil Burner Servicer And Installer Name: Delivery Method: HAND - Hand Delivered Catarina Days: Prior Verbal Notification: Recipient Understood Notice: Yes Recipient Signature: Yes Med Rec Note Co-signed by Attending: Coverage Notice Comment: Last DP export: 12/26/18 6:06 p Patient Name: SHARON SELLERS Page [phone] at 0939 All edits/amendments must be made on the electronic document DICTATION DATE: 12/28/18938 FIBERGLASS SKI MAKER: SURESH 12/28/18938 RPT#: [id number] DC DATE:12/27/18 STATUS: DIS IN [facility] [address] [place] [address] END OF REPORT
--- NOTE | 2018-12-28 09:46 | MORECARE ---
CASE MANAGEMENT DISCHARGE SUMMARY PATIENT: SHARON SELLERS UNIT: [id number] ADM DATE: 12/24/18 AGE: 83 : [birth year] SEX: F ROOM/BED: D.1204 AUTHOR: ALINA RANDHAWA PHYSICIAN: REFERRING PHYSICIAN: CHANO HOPPER MD DATE OF SERVICE: 12/28/18 Discharge Plan Patient Name: SHARON SELLERS Facility: [facility]:[place] : 1935 Planned Disposition: Home Anticipated Discharge Date: Discharge Date: 12/27/2018 Expected LOS: Initial Reviewer: [email or web address] Initial Review Date: 12/24/2018 Generated: 12/28/18 10:45 am Comments DCP- Discharge Planning Updated by [email or web address]: Guerline Cabrera on 12/28/18 8:[address] LATE ENTRY 12/27/18 @ 1215 Patient Name: SHARON SELLERS Encounter No: [id number] : 1935 Primary Insurance: MEDICARE A & B Anticipated DC Date: Planned Disposition: Home External Planned Provider: : Forrest/Nash HARRIS SIGNED AND DECLINED TO RESUME HH SERVICES SIGNED 12/27/18 @ 1215 DCP follow-up note: Patient and family in agreement with discharge plan. No changes to plan. Case management will follow and assist as needed. Guerline Cabrera DCP- Discharge Planning Updated by [email or web address]: Guerline Cabrera on 12/26/18 6:[address] Patient Name: SHARON SELLERS Admission Status: ER Accout number: [id number] Admission Date: 12-24-2018 : 1935 Admission Diagnosis: Attending: WARD, Current LOS: 2 Anticipated DC Date: Planned Disposition: Primary Insurance: MEDICARE A & B Discharge Planning Comments: CM met with patient to complete initial dc planning assessment. CM educated patient on the CM role and verbal consent given by patient to complete assessment. Patient lives at home alone where she is independent with her care. At discharge patient plans to return home and feels this is a safe discharge. CM discussed availability of home health, rehab services, and medical equipment. She stated she will have transportation home. Patient denied known discharge needs at this time. CM explained that had an eval for inpatient rehab. CM explained that once PT and OT eval patient to make sure it is safe to d/c home alone. Patient stated that she has [facility] but didn't want to sign LAINEY form to resume care at this time. CM will continue to follow and will assist as needed with dc plans/needs. Legal Assistant: Geurline Cabrera DCPIA - Discharge Planning Initial Assessment Updated by [email or web address]: Guerline Cabrera on 12/26/18 6:57 pm * Is the patient Alert and Oriented? Yes * How many steps to enter\exit or inside your home? * PCP ROBIN DILL * Pharmacy [facility] * Preadmission Environment Home Alone * ADLs Independent * Equipment Walker * List name and contact numbers for known caregivers / representatives who currently or will assist patient after discharge: NANCY LE - [phone] * Verbal permission to speak to the caregivers and representatives has been obtained from the patient. Yes * Community resources currently utilized Home Health * Please name any agencies selected above. [facility] - DOESN'T WANT TO SIGN LAINEY @ THIS TIME * Additional services required to return to the preadmission environment? No * Can the patient safely return to the preadmission environment? Yes * Has this patient been hospitalized within the prior 30 days at any hospital? No Coverage Notice Reviewer: [email or web address] Ruslan Cabrera Notice Issued Date-Time: 12/27/2018 12:15 Notice Type: IM Discharge Notice Notice Delivered To: Patient Relationship to Patient: Self Fusion Juncture Grinder Name: Delivery Method: HAND - Hand Delivered Catarina Days: Prior Verbal Notification: Recipient Understood Notice: Yes Recipient Signature: Yes Med Rec Note Co-signed by Attending: Coverage Notice Comment: Reviewer: [email or web address] Ruslan Cabrera Notice Issued Date-Time: 12/27/2018 12:15 Notice Type: Patient Choice Letter Notice Delivered To: Patient Relationship to Patient: Self Fusion Juncture Grinder Name: Delivery Method: HAND - Hand Delivered Catarina Days: Prior Verbal Notification: Recipient Understood Notice: Yes Recipient Signature: Yes Med Rec Note Co-signed by Attending: Coverage Notice Comment: PATIENT REFUSED TO RESUME HH SERVICES [facility] Ley DP export: 12/28/18 8:39 a Patient Name: SHARON SELLERS Page [phone] at 0946 All edits/amendments must be made on the electronic document DICTATION DATE: 12/28/18944 TECHNOLOGY SPECIALIST: SURESH 12/28/18944 RPT#: [id number] DC DATE:12/27/18 STATUS: DIS IN [facility] [address] [place] [address] END OF REPORT
== END 2018-12-27 16:58 | disposition home or self-care (01) | DRG 689 ==
LOC: D.ER 20:07 → D.M3 21:13 → D.MS 21:13 → D.M3 12-26 07:10
PROVIDERS: Family Medicine; ADMIT Family Medicine; ATTEND Family Medicine
DX: N39.0 Urinary tract infection, site not specified (principal); R53.2 Functional quadriplegia; N17.9 Acute kidney failure, unspecified; C34.92 Malignant neoplasm of unspecified part of left bronchus or lung; K59.09 Other constipation; D64.9 Anemia, unspecified; E87.6 Hypokalemia; B96.1 Klebsiella pneumoniae [K. pneumoniae] as the cause of diseases classified elsewhere; D70.2 Other drug-induced agranulocytosis; T45.1X5A Adverse effect of antineoplastic and immunosuppressive drugs, initial encounter; I25.10 Atherosclerotic heart disease of native coronary artery without angina pectoris; E83.42 Hypomagnesemia; K21.9 Gastro-esophageal reflux disease without esophagitis; F41.8 Other specified anxiety disorders

== ENCOUNTER 2019-01-30 18:37 | Emergency (ER) | payer MEDICARE, BC, OTHER ==
[~2019-01-30] VITALS: Ht 160 cm; Wt 50.0 kg
[~2019-01-30 18:37] MED LIST changes: +CIPRO250 MG PO; +DOK100 MG PO; +LINZESS72 MCG PO; +MAG 6464 MG PO; +VITAMIN B COMPLEX; +ZYRTEC10 MG PO
[2019-01-30 18:45] VITALS: Ht 160 cm; Wt 50.0 kg
[2019-01-30 19:29] LABS: CALC OSMOLALITY 279 mosm/kg (275-300); CARBON DIOXIDE 24.3 mmol/L (21.0-32.0); CHLORIDE - SERUM 106 mmol/L (98-107); GLUCOSE 93 mg/dL (74-106); POTASSIUM - SERUM 4.2 mmol/L (3.5-5.1); SODIUM 139 mmol/L (136-145); UREA NITROGEN 18 mg/dL (7-18); eGFR NON AFRICAN AMERICAN 56 mL/min (90-120)
[2019-01-30 19:35] LABS: HEMATOCRIT 30.4 % (36.0-48.0); MCH 31.3 pg (26.0-34.0); MCHC 32.9 g/dL (31.0-37.0); MEAN PLATELET VOLUME 9.9 fL (7.4-10.4); RDW 15.3 % (11.5-14.5); WBC 3.1 10x3/uL (4.8-10.8)
[2019-01-30 19:38] LABS: PLATELET COUNT 272 10x3/uL (130-400)
[2019-01-30 19:43] LABS: ALBUMIN 3.6 g/dL (3.4-5.0); ALKALINE PHOSPHATASE 78 U/L (46-116); ALT (SGPT) 24 U/L (10-68); BILIRUBIN - TOTAL 0.45 mg/dL (0.2-1.3); CKMB 0.6 U/L (0.0-3.6); CREATINE KINASE 63 UL (21-215); MAGNESIUM - SERUM 1.6 mg/dL (1.8-2.4); PRO BNP 158 pg/mL (0-450); PROTEIN - SERUM 6.6 g/dL (6.4-8.2)
[2019-01-30 19:45] LABS: TROPONIN-I < 0.017 ng/mL (0.000-0.060)
[2019-01-30 20:06] LABS: APPEARANCE CLEAR (CLEAR); BILIRUBIN NEGATIVE (NEGATIVE); COLOR YELLOW (YELLOW); GLUCOSE NEGATIVE (NEGATIVE); KETONE NEGATIVE (NEGATIVE); NITRITE NEGATIVE (NEGATIVE); PROTEIN NEGATIVE (NEGATIVE); RED CELLS - URINE 0-5 /hpf (0-5); SPECIFIC GRAVITY 1.025 (1.005-1.020); UROBILINOGEN NORMAL (NORMAL); WHITE CELLS - URINE OCC /hpf (NEGATIVE)
[2019-01-30 20:07] LABS: BACTERIA FEW /hpf (NEGATIVE); EPITHELIAL CELLS OCC /hpf (0-5)
[2019-01-30 20:10] LABS: LYMPHOCYTES 49 % (15-50); NEUTROPHILS 51 % (40-80); PLATELET ESTIMATE NORMAL
[2019-01-30 21:39] VITALS: BP 117/39
== END 2019-01-30 21:39 | disposition home or self-care (01) ==
LOC: D.ER 18:37
PROVIDERS: Family Medicine
DX: R39.12 Poor urinary stream (principal); Z86.79 Personal history of other diseases of the circulatory system; C34.90 Malignant neoplasm of unspecified part of unspecified bronchus or lung; Z95.5 Presence of coronary angioplasty implant and graft; Z95.1 Presence of aortocoronary bypass graft; I73.9 Peripheral vascular disease, unspecified; K21.9 Gastro-esophageal reflux disease without esophagitis

== ENCOUNTER → 2020-04-30 13:41 | Outpatient (CLI) | payer MEDICARE, BC ==
[2020-04-02 19:04] VITALS: BMI 24.8
--- NOTE | ~2020-04-30 | HEMODYNAMI ---
PATIENT:SHARON SELLERS MEDICAL RECORD: [id number] : 31 LOCATION:[facility] ADMISSION DATE: 04/30/20 Generatedon:114:37 Patient name: SHARON SELLERS Patient #: [id number] SSN: : 1935 Date of study: 04/30/2020 Page: Of Hemodynamic Procedure Report Patient Data Patient Demographics Procedure consent was obtained First Name: SHARON Gender: Female Last Name: VERITO : 1935 Middle Initial: ROSIE Age: 84 year(s) Patient #: [id number] Race: Unknown Additional ID: [id number] Contact details Address: [address] [place] [address] State: [place] City: [facility] [place] Zip code: [address] Admission Admission Data Admission Date: 04/30/2020 Admission Time: 13:41 Procedure Procedure Types Cath Procedure Peripheral Cath Diagnostic Procedure Miscellaneous Procedure Description Procedure Date Procedure Date: 04/30/2020 Procedure Start Time: 14:31 Procedure Staff Name Function Randy Kimble MD Performing Physician Mohan Simeon RT Monitor Procedure Data Cath Procedure Contrast Material Contrast Material Type Amount (ml) Isovue 300 10 Hemodynamics Rest Pre Cath Intra NCS Post Cath Procedure Log Time Note 14:22:57 Mohan Simeon RT (R) (CV) sent for patient. Start room use. 14:23:09 Patient received from Outpatients to IR Alert and oriented. Tansferred to table in Supine position. 14:23:14 Signed procedure consent form obtained from patient. 14:23:16 Full Disclosure recording started 14:23:16 - 14:23:19 Correct patient and procedure confirmed by team. 14:23:20 Pre-procedure instructions explained to patient. 14:23:20 Pre-op teaching completed and patient verbalized understanding. 14:31:25 Physician arrived 14:31:29 --------ALL STOP TIME OUT------ 14:31:30 Final Timeout: patient, procedure, and site verified with staff and physician. All members of the team are in agreement. 14:31:48 Procedure started. 14:35:06 Procedure ended.(Physican Out) 14:36:08 Contrast amount:Isovue 300 10ml. 14:36:12 Sharps counted by scrub and verified by R.N. 14:36:37 Report given to Other. 14:36:43 Patient transfered to Other with Ambulatory. Signature Audit [place] Stage Time Signature Unsigned Intra-Procedure 04/30/2020 Mohan 2:37:07 PM Blanco RT (R) (CV) [facility] [address] [place] [address]
[~2020-04-30 13:41] MED LIST changes: +DECADRON4 MG PO; +KEFLEX500 MG PO
== END | disposition home or self-care (01) ==
LOC: D.SP 13:41
PROVIDERS: ATTEND Internal Medicine Hematology & Oncology
DX: C34.12 Malignant neoplasm of upper lobe, left bronchus or lung (principal)

== ENCOUNTER 2020-05-19 10:34 | Inpatient (IN) | payer MEDICARE, BC ==
[~2020-05-19] VITALS: Ht 160 cm; Wt 72.1 kg
--- NOTE | ~2020-05-19 | HEMODYNAMI ---
PATIENT:SHARON SELLERS MEDICAL RECORD: [id number] : 31 LOCATION:[facility] D.2223 ADMISSION DATE: 05/20/20 Generatedon:118:17 Patient name: SHARON SELLERS Patient #: [id number] SSN: : 1935 Date of study: 05/24/2020 Page: Of Hemodynamic Procedure Report Patient Data Patient Demographics Procedure consent was obtained First Name: SHARON Gender: Female Last Name: VERITO : 1935 [facility] Initial: ROSIE Age: 84 year(s) Patient #: [id number] Race: Unknown Additional ID: [id number] Contact details Address: [address] [place] [address] State: [place] City: [facility] [place] Zip code: [address] Past Medical History Allergies Allergen Reaction Date Comments Reported Iodine 05/24/2020 Admission Admission Data Admission Date: 05/20/2020 Admission Time: 15:02 Room #: D.2223 Height (in.): 63 BSA: 1.75 (m2) Height (cm.): 160.02 BMI: 27.99 (kg/m2) Weight (lbs.): 158 Weight (kg.): 71.67 Procedure Procedure Types Cath Procedure Peripheral Cath Diagnostic Procedure Kyphoplasty Kyphoplasty Lumbar Procedure Description Procedure Date Procedure Date: 05/24/2020 Procedure Start Time: 17:46 Procedure Staff Name Function Yadiel Miller MD Performing Physician Sherry Gonzalez RT Mri Supervisor Uzair CARVAJAL RN Nurse Mohan Simeon RT Abub Randy Kimble MD Performing Physician Procedure Medications Medication Administration Route Dosage Lidocaine 1% added to field 20 Heparin Flush Bag added to field 1 bags (1000units/500ml NS) Ancef (1Gm/50ml NS) I.V.P.B 1 g Benadryl I.V. 25 mg Fentanyl I.V. 50 mcg Versed I.V. 1 mg Fentanyl I.V. 25 mcg Versed I.V. 0.5 mg Hemodynamics Rest BSA: 1.75 (m2) O2 Consumption: Estimated: 155.86 (ml/min) O2 Consumption indexed : Estimated:89.06 (ml/min/m) Heart Rate: 71 (bpm) Snapshots Pre Cath Intra NCS Post Cath Vital Signs Time Heart Resp SPO2 etCO2 NIBP (mmHg) Rhythm Pain Sedation Rate (ipm) (%) (mmHg) Status Level (bpm) 17:42:30 69 22 99 30.4 173/88(135) NSR 0 (11) 9(A) , No pain 17:46:50 69 16 99 31.1 191/91(132) NSR 0 (11) 9(A) , No pain 17:51:08 67 12 100 25.8 161/86(130) NSR 0 (11) 9(A) , No pain 17:55:22 67 10 99 22.8 166/90(136) NSR 0 (11) 8(A) , No pain 17:59:36 68 10 99 23.5 167/95(139) NSR 0 (11) 8(A) , No pain 18:03:52 66 9 99 25 172/94(149) NSR 0 (11) 8(A) , No pain 18:08:08 68 10 98 25 167/97(139) NSR 0 (11) 8(A) , No pain 18:12:28 67 10 99 25.8 165/80(133) NSR 0 (11) 8(A) , No pain 18:16:42 99 28.1 168/94(145) NSR 0 (11) 8(A) , No pain Medications Time Medication Route Dose Verified Delivered Reason Notes Eff ectiveness by by 17:41:37 Lidocaine 1% added 20ml Yadiel Cotto for local to vial Angela Miller anesthetic field MD ELLIS 17:41:46 Heparin Flush added 1 Yadiel Cotto used for Bag to bags Angela Miller procedure (1000units/500ml field MD ELLIS NS) 17:45:07 Ancef (1Gm/50ml I.V.P.B 1 g Yadiel Dunne used for NS) Angela CARVAJAL procedure MD UL 17:47:27 Benadryl I.V. 25 mg Yadiel Dunne used for Angela CARVAJAL procedure MD LU 17:47:44 Fentanyl I.V. 50 Yadiel Warrenr for mcg Angela WEI sedation MD LU 17:47:57 Versed I.V. 1 mg Yadiel Dunne for Angela WEI sedation MD LU 17:53:40 Fentanyl I.V. 25 Yadiel Warrenr for mcg Angela WEI sedation MD LU 17:53:47 Versed I.V. 0.5 Yadiel Dunne for mg Angela WEI sedation MD LUheadend technician Log Time Note 17:03:58 Patient Height : 63 inches 17:04:03 Patient Weight : 158 lbs 17:08:50 Clayton BONE BX 11GA kit opened to sterile field. 17:08:51 Clayton 11G Curved Needle opened to sterile field. 17:08:52 Clayton BONE CEMENT WITH NEEDLE AUTOPLEX Kit opened to sterile field. 17:09:28 Use device set IR Diagnostic 17:09:30 Tegaderm 4 x 4 (1626W) opened to sterile field. 17:09:31 Sterile Angiographic Pack opened to sterile field. 17:09:32 Bag Decanter (2002S) opened to sterile field. 17:09:41 - 17:13:55 RICARDO 15/2 VERT AUGMENTATION opened to sterile field. 17:16:42 Time tracking: Regular hours (M-F 7:00 - 5:00) 17:18:46 Plan of Care:Hemodynamics will remain stable., Cardiac rhythm will remain stable., Comfort level will be maintained., Respiratory function will remain adequate., Patient/ family verbilizes understanding of procedure., Procedure tolerated without complication., Recovers from procedure without complications.. 17:18:52 Patient received from Med/Surg to IR Alert and oriented. Tansferred to table in Supine position. 17:18:54 Signed procedure consent form obtained from patient. 17:18:59 H&P Date Dictated: 05/24/2020 Within 30 days and on chart.. 17:19:00 Pre-procedure instructions explained to patient. 17:19:01 Pre-op teaching completed and patient verbalized understanding. 17:19:03 Family unavailable. 17:19:05 Patient NPO since Midnight. 17:19:19 Patient allergic to Iodine 17:19:40 Is the patient allergic to Iodine/contrast media? Yes. 17:19:43 Was the patient premedicated? No, not using for injection in the body 17:20:12 Is patient on blood thinner?No 17:20:17 - 17:20:33 Lumbar area was prepped with dura-prep and draped in sterile fashion 17:20:35 Alarms reviewed by Georgia Blum 17:20:38 - 17:41:24 Vital chart was started 17:41:37 Lidocaine 1% 20ml vial added to field was administered by Yadiel avila MD; for local anesthetic; Verbal order read back and verified. 17:41:46 Heparin Flush Bag (1000units/500ml NS) 1 bags added to field was administered by Yadiel Miller MD; used for procedure; Verbal order read back and verified. 17:42:32 Physician arrived 17:42:33 --------ALL STOP TIME OUT------ 17:42:34 Final Timeout: patient, procedure, and site verified with staff and physician. All members of the team are in agreement. 17:42:47 Fire Safety Assessment: A--An alcohol-based skin anteseptic being used preoperatively., C--Open oxygen or nitrous oxide is being used. 17:45:07 Ancef (1Gm/50ml NS) 1 g I.V.P.B was administered by Minner WEI RN; used for procedure; Verbal order read back and verified. 17:46:19 ECG and BP/O2 sat monitors applied to patient. 17:46:21 Baseline sample Acquired. 17:46:24 Full Disclosure recording started 17:46:25 - 17:46:30 Procedure started. 17:46:37 Local anesthetic to Lumbar area with Lidocaine 1% by Yadiel Miller MD.INITIAL ACCESS ONLY 17:47:27 Benadryl 25 mg I.V. was administered by Uzair CARVAJAL RN; used for procedure; Verbal order read back and verified. 17:47:44 Fentanyl 50 mcg I.V. was administered by Uzair CARVAJAL RN; for sedation; Verbal order read back and verified. 17:47:57 Versed 1 mg I.V. was administered by Uzair CARVAJAL RN; for sedation; Verbal order read back and verified. 17:52:36 Jamshidi needle introduced. 17:53:40 Fentanyl 25 mcg I.V. was administered by Uzair CARVAJAL RN; for sedation; Verbal order read back and verified. 17:53:47 Versed 0.5 mg I.V. was administered by Uzair CARVAJAL RN; for sedation; Verbal order read back and verified. 17:59:56 Bone bx needle placed. 18:01:18 Kyphoplasty balloon introduced. 18:05:37 Cement introduced to vertebral body. 18:11:51 Jamshidi needle removed. 18:11:56 Procedure ended.(Physican Out) 18:12:31 Report given to Med/Surg. 18:17:49 Vital chart was stopped Device Usage Item Name Manufacture Quantity Catalog Hospital Part Current Minim al Lot# / Number Charge Number Stock Stock Serial# Code Ricardo BONE Ricardo 1 [id number] 5 BX 11GA kit Ricardo 11G Clayton 1 [id number] 5 Curved Needle Ricardo BONE Ricardo 1 [id number] [id number] [id number] 5 CEMENT WITH NEEDLE AUTOPLEX Kit Tegaderm 4 x 3M 1 1626W [id number] 5 4 (1626W) Sterile Cardinal 1 [id number] 5 Angiographic Health Pack Bag Decanter Microtek 1 [id number] 39990 [id number] 5 () [employer] RICARDO 08/04 Clayton 1 [id number] [id number] [id number] 5 VERT AUGMENTATION Signature Audit [place] Stage Time Signature Unsigned Intra-Procedure 05/24/2020 Sherry Gonzalez 6:17:46 PM RT(R) [facility] [address] [place] [address]
[~2020-05-19 10:34] MED LIST changes: -VITAMIN B COMPLEX; +VITAMIN B COMPLEX PO
[2020-05-19 10:45] VITALS: BP 179/78
--- NOTE | 2020-05-19 10:54 | NUR ---
UNABLE TO VERIFY HOME MEDICATIONS, PHARMACY CLOSED AND PATIENT IS UNSURE.
--- NOTE | 2020-05-19 11:06 | NUR ---
HOME MEDS VERIFIED WITH FAMILY
--- NOTE | 2020-05-19 11:47 | NUR ---
PATIENT DROWSY, PLACED ON O2 NC.
[2020-05-19 12:24] VITALS: BP 152/80
[2020-05-19] MEDS ORDERED: NORFLEX100 MG PO (12:28)
[2020-05-19 12:30] VITALS: BP 150/80
[2020-05-19 13:06] VITALS: BP 158/85
[2020-05-19 13:19] LABS: BASOPHILS 0.3 % (0-2); EOSINOPHILS 1.6 % (0-7); HEMATOCRIT 34.2 % (36.0-48.0); HEMOGLOBIN 10.5 g/dL (12-16); IMMATURE GRANULOCYTES 0.5 % (0-5); LYMPHOCYTE ABS# 2.37 10x3/uL (1.18-3.74); LYMPHOCYTES 38.1 % (15-50); MCH 26.5 pg (26.0-34.0); MCHC 30.7 g/dL (31.0-37.0); MCV 86.4 fL (80.0-100.0); MEAN PLATELET VOLUME 8.7 fL (7.4-10.4); MONOCYTES 9.8 % (2-11); NEUTROPHIL ABS# 3.09 10x3/uL (1.56-6.13); NEUTROPHILS 49.7 % (40-80); PLATELET COUNT 277 10x3/uL (130-400); RBC 3.96 10x6/uL (4.00-5.40); RDW 17.6 % (11.5-14.5); WBC 6.2 10x3/uL (4.8-10.8)
[2020-05-19 13:31] LABS: ANION GAP 14.4 mmol/L (8-16); APTT 33.3 SECONDS (22.8-39.4); CALCIUM 8.7 mg/dL (8.5-10.1); CARBON DIOXIDE 24.8 mmol/L (21.0-32.0); CREATININE - SERUM 1.2 mg/dL (0.6-1.3); POTASSIUM - SERUM 4.2 mmol/L (3.5-5.1)
[2020-05-19 13:34] LABS: INR 1.19 (0.85-1.17)
[2020-05-19 13:38] LABS: ALBUMIN 2.9 g/dL (3.4-5.0); BILIRUBIN - TOTAL 0.35 mg/dL (0.2-1.3); PROTEIN - SERUM 6.5 g/dL (6.4-8.2)
[2020-05-19] MEDS ORDERED: METOPROLOL TART25 MG (13:45)
[2020-05-19 13:54] LABS: % SATURATION 9 % (15-55); IRON 30 ug/dl (35-150); TOTAL IRON BIND CAPACITY 319 ug/dl (260-445); UNSAT IRON BIND CAPACITY 289 ug/dl (150-375)
[2020-05-19 14:04] LABS: CKMB 1.3 U/L (0.0-3.6); CREATINE KINASE 42 UL (21-215); MAGNESIUM - SERUM 1.7 mg/dL (1.8-2.4)
[2020-05-19 14:05] LABS: TROPONIN-I < 0.017 ng/mL (0.000-0.060)
--- NOTE | 2020-05-19 14:46 | NUR ---
REPORT GIVEN TO BABITA ON MED SURG.
--- NOTE | 2020-05-19 15:45 | NUR ---
ORIENTED TO ROOM WITH LIMITED MOTION DUE TO BACK PAIN. IV S/L AND ENCOURAGED TO USE CALL LIGHT FOR ASSSIT. NORCO GIVEN FOR PAIN MANAGEMENT AND EFFECTIVE WELL ROBAXIN
[2020-05-19 15:46] VITALS: BP 143/95; BMI 28.2
[2020-05-19 20:00] VITALS: BP 161/84
--- NOTE | 2020-05-19 20:00 | NUR ---
ASSISTED PT ONTO BEDPAN TO VOID. CHANGED INTO YELLOW GOWN. EDUCATED ABOUT SCD'S AND PUT ON PT. INSTRUCTED ON INCENTIVE SPIROMETER. TURNED ON BED ALARM AND PLACED CALL LIGHT IN REACH. NO OTHER NEEDS. DAUGHTER AT BEDSIDE.
[2020-05-20 01:10] VITALS: BP 157/79
[2020-05-20 04:00] VITALS: BP 162/76
[2020-05-20 05:48] LABS: BASOPHILS 0.8 % (0-2); HEMATOCRIT 34.2 % (36.0-48.0); HEMOGLOBIN 10.4 g/dL (12-16); IMMATURE GRANULOCYTES 0.3 % (0-5); LYMPHOCYTES 39.3 % (15-50); MCH 26.5 pg (26.0-34.0); MCHC 30.4 g/dL (31.0-37.0); MEAN PLATELET VOLUME 8.8 fL (7.4-10.4); MONOCYTES 12.8 % (2-11); NEUTROPHIL ABS# 2.74 10x3/uL (1.56-6.13); NEUTROPHILS 44.8 % (40-80); PLATELET COUNT 259 10x3/uL (130-400); RBC 3.93 10x6/uL (4.00-5.40); WBC 6.1 10x3/uL (4.8-10.8)
[2020-05-20 06:36] LABS: ALBUMIN 2.6 g/dL (3.4-5.0); ANION GAP 12.6 mmol/L (8-16); BILIRUBIN - TOTAL 0.31 mg/dL (0.2-1.3); CARBON DIOXIDE 23.4 mmol/L (21.0-32.0); MAGNESIUM - SERUM 1.8 mg/dL (1.8-2.4); PROTEIN - SERUM 6.1 g/dL (6.4-8.2)
--- NOTE | 2020-05-20 08:50 | NUR ---
PATIENT LYING FLAT ON HER BACK DAUGHTER AT BEDSIDE COMPLAINING AND IRRITATED STATING HOB WILL NOT LET ELEVATE THAT IT IS BROKEN. EXPLAINED TO HER I HAS JUST ELEVATED BED A COUPLE MINUTES AGO AND IT WAS FINE. EXPLAINED THAT I COYLD NOT GIVE HER PILLS LYINH FLAT. DAUGHTER BECAME VERY LOUD AND RAISING HER VOICE STATING SHE HAS TO HAVE THEM AND SHE WOULD GIVE THEM TO HER. EXPLAINED AGAIN THE RISKS OF CHOKING AND APSIRATION AND POSSIBLE AT THIS TIME FESTUS IGNORED NURSE AND GAVE MEDICATION.
[2020-05-20 09:36] VITALS: BP 170/100
[2020-05-20 12:32] VITALS: BP 160/92
[2020-05-20 13:01] VITALS: BMI 28.1
[2020-05-20 13:19] LABS: CKMB 1.7 U/L (0.0-3.6); CREATINE KINASE 33 UL (21-215)
--- NOTE | 2020-05-20 13:23 | NUR ---
PATIENT DAUGHTER CONCERNED ABOUT HER CHOKING ON LUNCH SHE WAS SCHEDULED TO HAVE HER ESOPHAGUS STRETCHED FIDAY AND REQUESTS IT TO BE DONE WHILE SHE IS HERE NOW. ATTMEPTED TO NOTIFIFY RECORD TABULATING CLERK TWICE AND ALOS PAGED AWAITING ROAD CUTTER BACK.
[2020-05-20 13:29] LABS: TROPONIN-I < 0.017 ng/mL (0.000-0.060)
[2020-05-20 14:27] LABS: BILIRUBIN NEGATIVE (NEGATIVE); KETONE NEGATIVE (NEGATIVE); NITRITE POSITIVE (NEGATIVE); UROBILINOGEN NORMAL mg/dL (< 2)
[2020-05-20 14:29] LABS: WHITE CELLS - URINE >50 HPF (0-4)
[2020-05-20 14:30] LABS: BACTERIA MANY HPF (NONE SEEN); SQUAMOUS EPITHELIAL NONE SEEN HPF (0-4)
[2020-05-20 16:56] VITALS: BP 107/64
[2020-05-20 17:36] LABS: CKMB 1.9 U/L (0.0-3.6); CREATINE KINASE 36 UL (21-215); TROPONIN-I < 0.017 ng/mL (0.000-0.060)
--- NOTE | 2020-05-20 18:10 | NUR ---
DAUGHTER UPSET AND IRRITATED THAT PATIENT HAS NOT HAD MRI DONE EXPLAINED THAT THERE WAS NOT A ORDER FOR ONE TODAY. SHE STATED DR RUBIO CAME TODAY AND TOLD HER ONE WOULD BE ORDERED. ATTEMPTED TO REACH DR RUBIO VIA TELEPHONE WITH MESSAGE LEFT ON VOICEMAIL NOTIFIED DAUGHTER OF ATTEMPT TO REACH MD WITH UNDERSTANDING VERBALIZED.
[2020-05-20 20:00] VITALS: BP 108/61
[2020-05-20 23:26] LABS: CKMB 1.7 U/L (0.0-3.6); CREATINE KINASE 33 UL (21-215)
[2020-05-20 23:27] LABS: TROPONIN-I < 0.017 ng/mL (0.000-0.060)
[2020-05-21] VITALS: BP 124/64
[2020-05-21 04:00] VITALS: BP 116/64
[2020-05-21 06:39] LABS: ALBUMIN 2.7 g/dL (3.4-5.0); ANION GAP 11.4 mmol/L (8-16); BILIRUBIN - TOTAL 0.35 mg/dL (0.2-1.3); CARBON DIOXIDE 26.5 mmol/L (21.0-32.0); CREATININE - SERUM 1.1 mg/dL (0.6-1.3); POTASSIUM - SERUM 3.9 mmol/L (3.5-5.1); PROTEIN - SERUM 6.4 g/dL (6.4-8.2)
[2020-05-21 06:40] LABS: BASOPHILS 0.4 % (0-2); EOSINOPHILS 2.2 % (0-7); HEMATOCRIT 35.2 % (36.0-48.0); HEMOGLOBIN 10.8 g/dL (12-16); IMMATURE GRANULOCYTES 0.4 % (0-5); LYMPHOCYTE ABS# 2.87 10x3/uL (1.18-3.74); MCH 26.7 pg (26.0-34.0); MCHC 30.7 g/dL (31.0-37.0); MCV 86.9 fL (80.0-100.0); MONOCYTES 8.7 % (2-11); NEUTROPHIL ABS# 3.01 10x3/uL (1.56-6.13); NEUTROPHILS 45.3 % (40-80); PLATELET COUNT 286 10x3/uL (130-400); RBC 4.05 10x6/uL (4.00-5.40); RDW 17.8 % (11.5-14.5); WBC 6.7 10x3/uL (4.8-10.8)
--- NOTE | 2020-05-21 07:09 | NUR ---
PATIENT HAD BACK PAIN CONTROLLED WITH THE PRESCRIBED PAIN MEDICATION, SHE APPEARED TO REST WELL THROUGH THE NIGHT.
[2020-05-21 08:49] VITALS: BP 131/67
[2020-05-21 11:44] VITALS: BP 104/63
--- NOTE | 2020-05-21 15:09 | NUR ---
OT NOTE: ATTEMPTED EVAL.. DTR AT BEDSIDE AND STATES THAT PT IS NOT GETTING UP DUE TO SAFETY RISK BECAUSE OF ANESTHESIA AND ALSO THE SEVERE PAIN HER MOM IS IN. WILL RE ATTEMPT TOMORROW. ZULLY ESPINOSA, OTR/L
[2020-05-21 16:52] VITALS: BP 115/80
[2020-05-21 20:00] VITALS: BP 102/50
[2020-05-21 20:52] VITALS: Ht 160 cm; Wt 72.1 kg
--- NOTE | 2020-05-21 21:01 | NUR ---
0700 BEDSIDE REPORT RECEIVED DAUGHTER UN HAPPY WITH PATIENTS CARE ASKEKD HER TO VOICE HER CONCERNS RECEIVED NEEW ORDERS FOR ROBAXIN AND MORPHINE TO HELP PROVIDE COMFORT MANAGER PHARMACY TODD ALSO ASSISTING TO DEMETRIUS TO DAUGHTERS CONCERNS.
--- NOTE | 2020-05-21 21:04 | NUR ---
1000 KALANI FROM IR PRESENT TO EXPLAIN PROCEEDURE PLANNED TO PERFORM ON PTS BACK. UNABLE TO DO PROCEEDURE TODAY R/T PLAVIX TAKEN. BLOOD THINNERS PLACED ON HOLD. MRI SCHEDULED THIS AM
--- NOTE | 2020-05-21 21:07 | NUR ---
1130 PT RETURNED FROM MRI WITH NO DISTRESSED NOTED POPCYCLE GIVEN PER REQUEST
--- NOTE | 2020-05-21 23:36 | NUR ---
REC'D CHGE OF SHIFT WALKING ROUNDS DTR. IN [facility] STATES MOTHER IS WET NEEDS TO BE CHGED RIGHT NOW.[facility] COMPLETE LINEN CHGE.WILL CONTINUE TO MONITOR FOR ANY FURTHER CHGES. AND FOLLOW CURRENT PLAN OF CARE.
[2020-05-22] VITALS: BP 117/64
[2020-05-22 04:00] VITALS: BP 158/80
--- NOTE | 2020-05-22 06:48 | NUR ---
I have reviewed this patient and I concur with the Shift Assessment completed by the Licensed Practical Nurse today this shift.
[2020-05-22 08:38] VITALS: BP 149/71
[2020-05-22 09:45] LABS: BASOPHILS 0.2 % (0-2); EOSINOPHILS 0 % (0-7); HEMATOCRIT 33.6 % (36.0-48.0); HEMOGLOBIN 10.4 g/dL (12-16); IMMATURE GRANULOCYTES 0.2 % (0-5); LYMPHOCYTE ABS# 1.25 10x3/uL (1.18-3.74); LYMPHOCYTES 25.8 % (15-50); MCH 26.5 pg (26.0-34.0); MCV 85.5 fL (80.0-100.0); MEAN PLATELET VOLUME 8.5 fL (7.4-10.4); MONOCYTES 3.7 % (2-11); NEUTROPHIL ABS# 3.39 10x3/uL (1.56-6.13); NEUTROPHILS 70.1 % (40-80); PLATELET COUNT 285 10x3/uL (130-400); RBC 3.93 10x6/uL (4.00-5.40); RETIC 2.03 % (0.45-2.28)
[2020-05-22 10:08] LABS: % SATURATION 8 % (15-55); IRON 23 ug/dl (35-150); TOTAL IRON BIND CAPACITY 267 ug/dl (260-445); UNSAT IRON BIND CAPACITY 244 ug/dl (150-375)
[2020-05-22 10:09] LABS: WBC 4.8 10x3/uL (4.8-10.8)
[2020-05-22 10:25] LABS: ALBUMIN 2.5 g/dL (3.4-5.0); ALKALINE PHOSPHATASE 92 U/L (30-120); ALT (SGPT) 12 U/L (10-68); BILIRUBIN - TOTAL 0.27 mg/dL (0.2-1.3); CALCIUM 8.6 mg/dL (8.5-10.1); CARBON DIOXIDE 26.8 mmol/L (21.0-32.0); CHLORIDE - SERUM 105 mmol/L (98-107); FERRITIN 41 ng/mL (3-244); MAGNESIUM - SERUM 1.7 mg/dL (1.8-2.4); POTASSIUM - SERUM 3.8 mmol/L (3.5-5.1); PROTEIN - SERUM 6.2 g/dL (6.4-8.2); SODIUM 137 mmol/L (136-145); UREA NITROGEN 12 mg/dL (7-18)
[2020-05-22 10:26] LABS: CALC OSMOLALITY 277 mosm/kg (275-300); CREATININE - SERUM 0.8 mg/dL (0.6-1.3); GLUCOSE 164 mg/dL (74-106); eGFR NON AFRICAN AMERICAN 72 mL/min (90-120)
--- NOTE | 2020-05-22 10:55 | NUR ---
OT NOTE: ATTEMPTED TO EVAL PT AGAIN THIS AM. DTR AT BEDSIDE AND REFUSES OT AND PT.. QUESTIONS HOW WE WILL MOVE PT WTIH A VERTEBRAL FX.. P.T. ASSURED DTR THAT THERAPY CAN MOVE PT WITH SPINAL PRECAUTIONS AND EDUCATED ABOUT NEED FOR MOVEMENT TO PREVENT SKIN BREAKDOWN. DTR DOES NOT WANT THERAPY FOR HER MOM AT THIS TIME. PLEASE RE CONSULT IF ANYTHING CHANGES. ZULLY ESPINOSA, OTR/L
[2020-05-22 13:20] VITALS: BP 125/67
[2020-05-22 16:28] VITALS: BP 147/63
[2020-05-22 20:00] VITALS: BP 114/55
[2020-05-23 06:01] LABS: BASOPHILS 0.1 % (0-2); EOSINOPHILS 0.1 % (0-7); HEMATOCRIT 35.2 % (36.0-48.0); HEMOGLOBIN 10.7 g/dL (12-16); IMMATURE GRANULOCYTES 0.2 % (0-5); LYMPHOCYTE ABS# 1.73 10x3/uL (1.18-3.74); LYMPHOCYTES 18.1 % (15-50); MCH 26.4 pg (26.0-34.0); MCHC 30.4 g/dL (31.0-37.0); MCV 86.9 fL (80.0-100.0); MEAN PLATELET VOLUME 9.3 fL (7.4-10.4); MONOCYTES 6.1 % (2-11); NEUTROPHIL ABS# 7.22 10x3/uL (1.56-6.13); NEUTROPHILS 75.4 % (40-80); RBC 4.05 10x6/uL (4.00-5.40)
[2020-05-23 06:18] LABS: PLATELET COUNT 349 10x3/uL (130-400); WBC 9.6 10x3/uL (4.8-10.8)
[2020-05-23 06:36] LABS: ALBUMIN 2.7 g/dL (3.4-5.0); ANION GAP 12.8 mmol/L (8-16); BILIRUBIN - TOTAL 0.3 mg/dL (0.2-1.3); CALCIUM 9.2 mg/dL (8.5-10.1); CARBON DIOXIDE 27.1 mmol/L (21.0-32.0); CREATININE - SERUM 0.8 mg/dL (0.6-1.3); MAGNESIUM - SERUM 1.9 mg/dL (1.8-2.4); POTASSIUM - SERUM 3.9 mmol/L (3.5-5.1); PROTEIN - SERUM 6.5 g/dL (6.4-8.2)
--- NOTE | 2020-05-23 06:37 | NUR ---
PATIENT HAD PAIN MANAGED WITH THE PRESCRIBED PAIN MEDICATION, DAUGHTER STAYED AT BEDSIDE THROUGH HE NIGHT. SHE IS CURRENTLY RESTING IN BED WITH HER EYES CLOSED.
--- NOTE | 2020-05-23 06:40 | NUR ---
I have reviewed this patient and I concur with the Shift Assessment completed by the Licensed Practical Nurse today this shift.
--- NOTE | 2020-05-23 07:27 | NUR ---
ALERT AND ORIENTED. ASSESSMENT COMPLETE. BED LOW. BED ALARM ON. CALL POWELL AND PERSONAL ITEMS IN REACH. WILL CONTINUE TO MONITOR.
[2020-05-23 08:44] VITALS: BP 141/78
[2020-05-23 12:27] VITALS: BP 120/52
--- NOTE | 2020-05-23 13:14 | NUR ---
Nutrition follow-up: Pt sleeping at time of RD visit; family friends present due to daughter had left the hospital. Diet order: regular as tolerated PO intake continues to be poor due to increased pain and pain medication Labs reviewed Wt: 158# Will continue to provide food choices and honor all food preferences RDN will order Ensure with meals Follow-up: 05/27/20
[2020-05-23 17:32] VITALS: BP 144/64
[2020-05-23 20:00] VITALS: BP 160/69
--- NOTE | 2020-05-23 22:15 | NUR ---
Pt's daughter came to this nurse asking why pt was placed on O2 via NC. This nurse had just left another pt's rm and had not been in with this pt for a bit. RT was called and RT stated that pt was just placed on overnight. Pt's daughter had just returned and stated she was gone for ahwile. Dtr also stated, "There has not been one Respiratory therapist in with her the whole time she's been here." Nurse asked if daughter had seen people in mathew scrubs with pt. Daughter did not answer and just repeated her prior comment. Nurse continued with pt teaching regarding O2 via NC for the night with the recomendation from RT. Pt and Dtr verbalized understanding.
[2020-05-24 04:00] VITALS: BP 148/70
--- NOTE | 2020-05-24 04:33 | NUR ---
Pt's daughter in with pt and when lab went to draw blood, pt's daughter stated, "No, you can get that around breakfast." Lab tried to explain provider needs results for labs in early am to make determinations of care/sx decisions. Daughter stated to lab, "No they don't that's just what the hospital does." This nurse in to perform pt teaching with daughter and did make it clear without the labs, the doctors may not be able to provide treatment. The daughter agreed then stated, "Well, they don't do a thing with those labs any other day."
[2020-05-24 05:42] LABS: BASOPHILS 0.3 % (0-2); EOSINOPHILS 0.1 % (0-7); HEMATOCRIT 34.8 % (36.0-48.0); HEMOGLOBIN 10.4 g/dL (12-16); IMMATURE GRANULOCYTES 0.1 % (0-5); LYMPHOCYTES 23.5 % (15-50); MCH 26.1 pg (26.0-34.0); MCHC 29.9 g/dL (31.0-37.0); MCV 87.4 fL (80.0-100.0); MEAN PLATELET VOLUME 9.3 fL (7.4-10.4); MONOCYTES 7.7 % (2-11); NEUTROPHIL ABS# 5.24 10x3/uL (1.56-6.13); NEUTROPHILS 68.3 % (40-80); PLATELET COUNT 334 10x3/uL (130-400); RBC 3.98 10x6/uL (4.00-5.40); RDW 17.3 % (11.5-14.5); WBC 7.7 10x3/uL (4.8-10.8)
[2020-05-24 06:04] LABS: ALBUMIN 2.7 g/dL (3.4-5.0); ANION GAP 12.4 mmol/L (8-16); BILIRUBIN - TOTAL 0.29 mg/dL (0.2-1.3); CALCIUM 8.8 mg/dL (8.5-10.1); CARBON DIOXIDE 27.3 mmol/L (21.0-32.0); CREATININE - SERUM 0.9 mg/dL (0.6-1.3); MAGNESIUM - SERUM 1.9 mg/dL (1.8-2.4); POTASSIUM - SERUM 3.7 mmol/L (3.5-5.1); PROTEIN - SERUM 6.3 g/dL (6.4-8.2)
--- NOTE | 2020-05-24 06:16 | NUR ---
Pt is in bed resting at this time. Daughter and Son in room. Daughter did verbalize some concerns of her own this morning. Therapeutic communication with her and pt's son in regards to their fears/concerns with pt's mortality and current medical condition. This nurse listened and offered comfort as appropriate. Daughter did calm and expressed gratitude for the conversation.
--- NOTE | 2020-05-24 07:58 | NUR ---
ALERT AND ORIENTED. ASSESSMENT COMPLETE. BED LOW. CALL POWELL AND PERSONAL ITEMS IN REACH. WILL CONTINUE TO MONITOR.
[2020-05-24 08:02] VITALS: BP 173/74
--- NOTE | 2020-05-24 10:20 | NUR ---
UA COLLECTED VIA STERILE IN AND OUT CATH AND TAKEN TO LAB. REQUESTED STAT.
[2020-05-24 10:29] LABS: BILIRUBIN NEGATIVE (NEGATIVE); KETONE NEGATIVE (NEGATIVE); NITRITE NEGATIVE (NEGATIVE); UROBILINOGEN NORMAL mg/dL (< 2)
--- NOTE | 2020-05-24 11:22 | NUR ---
CONSENTS OBTAINED FOR PROCEDURE AND ON CHART.
[2020-05-24 11:57] LABS: INR 1.21 (0.85-1.17); PROTIME 14.1 SECONDS (11.6-15.0)
[2020-05-24 14:10] VITALS: BP 151/72
[2020-05-24 16:57] VITALS: BP 177/78
--- NOTE | 2020-05-24 17:15 | NUR ---
PATIENT TAKEN FOR PROCEDURE.
[2020-05-24 18:27] VITALS: BP 158/80
--- NOTE | 2020-05-24 18:31 | NUR ---
PATIENT RETURNED FROM PROCEDURE. VITALS STABLE. YANNICK C/D/I.
[2020-05-24 19:44] VITALS: BP 127/54
[2020-05-25 05:22] VITALS: BP 155/66
[2020-05-25 08:07] VITALS: BP 167/73
--- NOTE | 2020-05-25 12:07 | NUR ---
SPOKE WITH MARKIE IN PT ABOUT PATIENT GETTING UP TODAY. STATED HE WOULD MAKE SURE HE GOT HER UP TODAY.
[2020-05-25 12:10] VITALS: BP 116/54
--- NOTE | 2020-05-25 12:23 | NUR ---
MARKIE IN ROOM WITH PATIENT GETTING HER OUT OF BED AT THIS TIME.
[2020-05-25 16:59] VITALS: BP 136/72
--- NOTE | 2020-05-25 19:00 | NUR ---
BEDSIDE REPORT RECEIVED AND CARE OF PT ASSUMED. PT UP AMBULATING TO RESTROOM WITH HER SON'S ASSIST. ASSISTED BACK TO BED AND POSITIONED FOR COMFORT. IV TO RIGHT FA PATENT. WILL MONITOR FOR NEEDS.
[2020-05-25 20:00] VITALS: BP 161/84
--- NOTE | 2020-05-25 21:25 | NUR ---
HS MEDICATIONS GIVEN. WILL CONTINUE TO MONITOR FOR NEEDS. SON IN AT BEDSIDE.
[2020-05-26] VITALS: BP 136/62
[2020-05-26 04:00] VITALS: BP 166/78
[2020-05-26 05:59] LABS: BASOPHILS 0.2 % (0-2); EOSINOPHILS 0.2 % (0-7); HEMATOCRIT 35.3 % (36.0-48.0); HEMOGLOBIN 10.7 g/dL (12-16); IMMATURE GRANULOCYTES 0.4 % (0-5); LYMPHOCYTE ABS# 1.95 10x3/uL (1.18-3.74); LYMPHOCYTES 21.7 % (15-50); MCH 26.5 pg (26.0-34.0); MCHC 30.3 g/dL (31.0-37.0); MCV 87.4 fL (80.0-100.0); MEAN PLATELET VOLUME 9.4 fL (7.4-10.4); MONOCYTES 8.7 % (2-11); NEUTROPHIL ABS# 6.17 10x3/uL (1.56-6.13); NEUTROPHILS 68.8 % (40-80); PLATELET COUNT 279 10x3/uL (130-400); RBC 4.04 10x6/uL (4.00-5.40); RDW 17.2 % (11.5-14.5)
[2020-05-26 06:20] LABS: ALBUMIN 2.8 g/dL (3.4-5.0); BILIRUBIN - TOTAL 0.25 mg/dL (0.2-1.3); CALCIUM 8.8 mg/dL (8.5-10.1); CARBON DIOXIDE 25.1 mmol/L (21.0-32.0); CREATININE - SERUM 0.8 mg/dL (0.6-1.3); POTASSIUM - SERUM 4.1 mmol/L (3.5-5.1); PROTEIN - SERUM 6.1 g/dL (6.4-8.2)
[2020-05-26 08:04] VITALS: BP 157/75
--- NOTE | 2020-05-26 08:56 | NUR ---
AAOX4 UPON ENTERING IN BEDSIDE CHAIR EATING BREAKFAST. FAMILY ASSISTING. ADMINISTERED MEDICATION, NO DIFFICULTIES. DENIES ANY NEEDS AT THIS TIME. BED SIDE TABLE OVER PT LABE. WILL CONTINUE POC.
[2020-05-26] MEDS ORDERED: FLORAJEN3 CAPS460 MG PO (10:33)
[2020-05-26] MEDS ORDERED: OMNICEF300 MG PO (10:34)
[2020-05-26] MEDS ORDERED: ROBAXIN PO (10:34)
[2020-05-26] MEDS ORDERED: MEDROL DOSE PACK4 MG PO (10:34)
[2020-05-26] MEDS ORDERED: HYDROCODON-ACE1 EA10 PO (10:34)
--- NOTE | 2020-05-26 11:10 | NUR ---
UPRIGHT IN BEDSIDE CHAIR. ADMINISTERED MEDICATION, NO DIFFICULTIES. DENIES CURRENT NEEDS. WILL CONTINUE POC.
--- NOTE | 2020-05-26 11:11 | NUR ---
I have reviewed this patient and I concur with the Shift Assessment completed by the Licensed Practical Nurse today this shift.
--- NOTE | 2020-05-26 12:35 | NUR ---
REMOVED IV FROM RIGHT FOREARM. CATHETER TIP INTACT, COVERED WITH GAUZE AND TAPE. TOLERTED WELL. SIGNED ALL NECESSARY PAPERWORK AT THIS TIME. DENIES ANY FURTHER NEEDS FROM HOSPITAL STAFF.
--- NOTE | 2020-05-26 16:41 | MORECARE ---
CASE MANAGEMENT DISCHARGE SUMMARY PATIENT: SHARON SELLERS UNIT: [id number] ADM DATE: 05/20/20 AGE: 84 : 33 SEX: F ROOM/BED: D.2223 AUTHOR: SYDNEE,DOC PHYSICIAN: REFERRING PHYSICIAN: CHANO HOPPER MD DATE OF SERVICE: 05/26/20 Case Management Discharge Planning Summary CT Patient Name: SHARON SELLERS Attending MD : VLAD HOPPER, Medical Record: [id number] Encounter : [id number] Facility : [address] [place] [address] Admission Date : 115:02 Center Discharge Date : 05/26/2020 [facility] [place] [address] Date of : DC Plan ID : [id number] Age/Sex/Martia : 84/ F/W Printed on : 05/26/20 16:39 CT DCP Review Details Anticipated D/C: 05/26/2020 Expected LOS : 6 Case Status : INITIATED - Initial Reviewe: [id number] - Victoriano Kwan Initial Review: 05/19/2020 Planned Disposi: 06 - Discharged/Trans to Home Under Care of Organized Home Health Service in Anticipation of Skilled Care Final Discharge: - Final Reviewer : : Final Review : Comments CT Entered Date Type Reviewer 05/26/20 16:35 CT Discharge Planning Victoriano Kwan Comment RETURN to ASSISTED LIVING. CM met with patient to complete DC plan and to evaluate needs. Patient's daughter, Nancy Freeman, is present in the room. Patient lives in assisted living at [facility]. Patient stated that their home is safe and has electricity and running water. Patient stated that the home has no steps to enter. Patient stated that she has no problems paying for medications and they fill their medications at [facility]. Patient stated that her primary care physician is Dr. Nelson Rivas. At discharge, the patient plans to return to her assisted living facility and feels this is a safe discharge. CM discussed availability of home health, rehab services, and medical equipment. Patient declined SNF, IPR, and DME but would like to resume Home health services with [place] and daughter would like for her mother to have physical therapy. PT notes indicate minimal assist. Spoke with Rosey at [facility]. Patient is not current with their services. Clinicals faxed to [facility] for evaluation. LAINEY for [place] signed and placed on chart. Patient stated she has DME, a walker, wheel chair, and Shower Chair. Patient voiced no other needs at this time and is satisfied with DC plan. Transportation provider at discharge will be with her daughterNANCY. DC IMM delivered, explained, signed by the patient, and placed in chart. Signed form also left with the patient. CM will continue to follow and will assist as needed with dc plans/needs. DCP Focus Questions & Answers DCP Evaluation Patient and/or caregiver agree upon recommended Yes discharge plan? Family / Caregiver's ability to cope with chronic a. Adequate (ability to meet patient's illness: medical needs, ensures patient attends medical appts.) Patient's current cognitive status: *Oriented to person, place, situation, time and present Patient's ability to cope with chronic illness d. No chronic illness Patient gives permission to discuss discharge [facility]ancy [facility], plans with: (name, relationship and number) Does the patient have the ability to pay for or Yes attain post discharge needs / services? Functional screen assessment: Basic needs can adequately be met by self Family / Caregiver's ability to cope with chronic a. Adequate (ability to meet patient's illness: medical needs, ensures patient attends medical appts.) Physical Status: Independent with ADL's Equipment needed for post hospitalization: None Is there a likelihood that the patient will No require additional services to return to the preadmission environment? Living Arrangements: Assisted Living Patient with capacity for self-care or can be Yes cared for in same environment as prior to hospitalization? Baseline cognitive status: *Oriented to person, place, situation, time and present Physical environment modification needed / No anticipated for discharge: Facility / Agency name and contact information [facility] from Question 3 (if applicable): Medication Management: Patient states can read and understand medication labels Medication Management: Patient states can afford medications Pharmacy name(s): [facility] Does Patient have transportation to get home and Yes to follow-up medical appointments when discharged from the hospital? Would patient like to participate in any Care Not applicable Coordination programs (if applicable): Does the patient have electricity at home? Yes Does the patient have running water in their Yes house? Equipment in use: Wheelchair Equipment in use: Walker - Rolling Equipment in use: Shower Chair Mental health screen: No mental health history DCP Re-evaluation Would patient like to participate in any Care Not applicable Coordination programs (if applicable): [facility] SHARON SELLERS MR#: [id number] /Age/Sex/[id number]-Djs-13 /84/F /W Attending Physician Name: WARD [id number] Patient Account:[id number] [facility] Page -1 of 1 All edits/amendments must be made on the electronic document DICTATION DATE: 05/26/20 163 MAILROOM SUPERVISOR: SURESH 05/26/20 163 RPT#: [id number] DC DATE:05/26/20 STATUS: DIS IN [facility] [address] [place] [address] END OF REPORT
--- NOTE | 2020-05-26 19:30 | MORECARE ---
CASE MANAGEMENT DISCHARGE SUMMARY PATIENT: SHARON SELLERS UNIT: [id number] ADM DATE: 05/20/20 AGE: 84 : 33 SEX: F ROOM/BED: D.2223 AUTHOR: SYDNEE,DOC PHYSICIAN: REFERRING PHYSICIAN: CHANO HOPPER MD DATE OF SERVICE: 05/26/20 Case Management Discharge Planning Summary CT Patient Name: SHARON SELLERS Attending MD : VLAD HOPPER, Medical Record: [id number] Encounter : [id number] Facility : [address] [place] [address] Admission Date : 115:02 Center Discharge Date : 05/26/2020 [facility] [place] [address] Date of : DC Plan ID : [id number] Age/Sex/Martia : 84/ F/W Printed on : 05/26/20 19:29 CT DCP Review Details Anticipated D/C: 05/26/2020 Expected LOS : 6 Case Status : INITIATED - Initial Reviewe: [id number] - Victoriano Kwan Initial Review: 05/19/2020 Planned Disposi: 06 - Discharged/Trans to Home Under Care of Organized Home Health Service in Anticipation of Skilled Care Final Discharge: - Final Reviewer : : Final Review : Comments CT Entered Date Type Reviewer 05/26/20 16:35 CT Discharge Planning Victoriano Kwan Comment RETURN to ASSISTED LIVING. CM met with patient to complete DC plan and to evaluate needs. Patient's daughter, Nancy Freeman, is present in the room. Patient lives in assisted living at [facility]. Patient stated that their home is safe and has electricity and running water. Patient stated that the home has no steps to enter. Patient stated that she has no problems paying for medications and they fill their medications at [facility] on [facility]. Patient stated that her primary care physician is Dr. Nelson Rivas. At discharge, the patient plans to return to her assisted living facility and feels this is a safe discharge. CM discussed availability of home health, rehab services, and medical equipment. Patient declined SNF, IPR, and DME but would like to resume Home health services with [place] and daughter would like for her mother to have physical therapy. PT notes indicate minimal assist. Spoke with Rosey at [facility]. Patient is not current with their services. Clinicals faxed to [facility] for evaluation. LAINEY for [place] signed and placed on chart. Patient stated she has DME, a walker, wheel chair, and Shower Chair. Patient voiced no other needs at this time and is satisfied with DC plan. Transportation provider at discharge will be with her daughterNANCY. DC IMM delivered, explained, signed by the patient, and placed in chart. Signed form also left with the patient. CM will continue to follow and will assist as needed with dc plans/needs. DCP Focus Questions & Answers DCP Evaluation Patient and/or caregiver agree upon recommended Yes discharge plan? Family / Caregiver's ability to cope with chronic a. Adequate (ability to meet patient's illness: medical needs, ensures patient attends medical appts.) Patient's current cognitive status: *Oriented to person, place, situation, time and present Patient's ability to cope with chronic illness d. No chronic illness Patient gives permission to discuss discharge daughterNancy [facility], plans with: (name, relationship and number) Does the patient have the ability to pay for or Yes attain post discharge needs / services? Functional screen assessment: Basic needs can adequately be met by self Family / Caregiver's ability to cope with chronic a. Adequate (ability to meet patient's illness: medical needs, ensures patient attends medical appts.) Physical Status: Independent with ADL's Equipment needed for post hospitalization: None Is there a likelihood that the patient will No require additional services to return to the preadmission environment? Living Arrangements: Assisted Living Patient with capacity for self-care or can be Yes cared for in same environment as prior to hospitalization? Baseline cognitive status: *Oriented to person, place, situation, time and present Physical environment modification needed / No anticipated for discharge: Facility / Agency name and contact information [facility] from Question 3 (if applicable): Medication Management: Patient states can read and understand medication labels Medication Management: Patient states can afford medications Pharmacy name(s): [facility] Does Patient have transportation to get home and Yes to follow-up medical appointments when discharged from the hospital? Would patient like to participate in any Care Not applicable Coordination programs (if applicable): Does the patient have electricity at home? Yes Does the patient have running water in their Yes house? Equipment in use: Wheelchair Equipment in use: Walker - Rolling Equipment in use: Shower Chair Mental health screen: No mental health history DCP Re-evaluation Would patient like to participate in any Care Not applicable Coordination programs (if applicable): [facility] SHARON SELLERS MR#: [id number] /Age/Sex/Ucoxfu55-Xnx-79 /84/F /W Attending Physician Name: WARD [id number] Patient Account:[id number] [facility] Page -1 of 1 All edits/amendments must be made on the electronic document DICTATION DATE: 05/26/201928 COOLING PIPE INSPECTOR: SURESH 05/26/201928 RPT#: [id number] DC DATE:05/26/20 STATUS: DIS IN [facility] [address] [place] [address] END OF REPORT
--- NOTE | 2020-05-27 13:35 | MORECARE ---
CASE MANAGEMENT DISCHARGE SUMMARY PATIENT: SHARON SELLERS UNIT: [id number] ADM DATE: 05/20/20 AGE: 84 : 33 SEX: F ROOM/BED: D.2223 AUTHOR: SYDNEE,DOC PHYSICIAN: REFERRING PHYSICIAN: CHANO HOPPER MD DATE OF SERVICE: 05/27/20 Case Management Discharge Planning Summary CT Patient Name: SHARON SELLERS Attending MD : VLAD HOPPER, Medical Record: [id number] Encounter : [id number] Facility : [address] [place] [address] Admission Date : 115:02 Center Discharge Date : 05/26/2020 [facility] [place] [address] Date of : DC Plan ID : [id number] Age/Sex/Martia : 84/ F/W Printed on : 05/27/20 13:33 CT DCP Review Details Anticipated D/C: 05/26/2020 Expected LOS : 6 Case Status : INITIATED - Initial Reviewe: [id number] - Victoriano Kwan Initial Review: 05/19/2020 Planned Disposi: 06 - Discharged/Trans to Home Under Care of Organized Home Health Service in Anticipation of Skilled Care Final Discharge: - Final Reviewer : : Final Review : Comments CT Entered Date Type Reviewer 05/26/20 16:35 CT Discharge Planning Victoriano Kwan Comment RETURN to ASSISTED LIVING. CM met with patient to complete DC plan and to evaluate needs. Patient's daughter, Nancy Freeman, is present in the room. Patient lives in assisted living at [facility]. Patient stated that their home is safe and has electricity and running water. Patient stated that the home has no steps to enter. Patient stated that she has no problems paying for medications and they fill their medications at [facility] on [facility]. Patient stated that her primary care physician is Dr. Nelson Rivas. At discharge, the patient plans to return to her assisted living facility and feels this is a safe discharge. CM discussed availability of home health, rehab services, and medical equipment. Patient declined SNF, IPR, and DME but would like to resume Home health services with [place] and daughter would like for her mother to have physical therapy. PT notes indicate minimal assist. Spoke with Rosey at [facility]. Patient is not current with their services. Clinicals faxed to [facility] for evaluation. LAINEY for [place] signed and placed on chart. Patient stated she has DME, a walker, wheel chair, and Shower Chair. Patient voiced no other needs at this time and is satisfied with DC plan. Transportation provider at discharge will be with her daughterNANCY. DC IMM delivered, explained, signed by the patient, and placed in chart. Signed form also left with the patient. CM will continue to follow and will assist as needed with dc plans/needs. DCP Focus Questions & Answers DCP Evaluation Patient and/or caregiver agree upon recommended Yes discharge plan? Family / Caregiver's ability to cope with chronic a. Adequate (ability to meet patient's illness: medical needs, ensures patient attends medical appts.) Patient's current cognitive status: *Oriented to person, place, situation, time and present Patient's ability to cope with chronic illness d. No chronic illness Patient gives permission to discuss discharge daughterNancy [facility], plans with: (name, relationship and number) Does the patient have the ability to pay for or Yes attain post discharge needs / services? Functional screen assessment: Basic needs can adequately be met by self Family / Caregiver's ability to cope with chronic a. Adequate (ability to meet patient's illness: medical needs, ensures patient attends medical appts.) Physical Status: Independent with ADL's Equipment needed for post hospitalization: None Is there a likelihood that the patient will No require additional services to return to the preadmission environment? Living Arrangements: Assisted Living Patient with capacity for self-care or can be Yes cared for in same environment as prior to hospitalization? Baseline cognitive status: *Oriented to person, place, situation, time and present Physical environment modification needed / No anticipated for discharge: Facility / Agency name and contact information [facility] from Question 3 (if applicable): Medication Management: Patient states can read and understand medication labels Medication Management: Patient states can afford medications Pharmacy name(s): [facility] Does Patient have transportation to get home and Yes to follow-up medical appointments when discharged from the hospital? Would patient like to participate in any Care Not applicable Coordination programs (if applicable): Does the patient have electricity at home? Yes Does the patient have running water in their Yes house? Equipment in use: Wheelchair Equipment in use: Walker - Rolling Equipment in use: Shower Chair Mental health screen: No mental health history DCP Re-evaluation Would patient like to participate in any Care Not applicable Coordination programs (if applicable): [facility] SHARON SELLERS MR#: [id number] /Age/Sex/Yvbhyd11-Khn-89 /84/F /W Attending Physician Name: WARD [id number] Patient Account:[id number] [facility] Page -1 of 1 All edits/amendments must be made on the electronic document DICTATION DATE: 05/27/20 1333 TEST MAN: SURESH 05/27/20 1333 RPT#: [id number] DC DATE:05/26/20 STATUS: DIS IN [facility] [address] [place] [address] END OF REPORT
== END 2020-05-26 12:55 | disposition home health service (06) | DRG 477 ==
LOC: D.ER 10:34 → D.MS 13:06 → OBSVTIME 13:06 → D.MS 05-20 15:02
PROVIDERS: Emergency Medicine; Family Medicine; Radiology Diagnostic Radiology; ADMIT Family Medicine; ATTEND Family Medicine
PROC: 0QB03ZX Excision of Lumbar Vertebra, Percutaneous Approach, Diagnostic (ICD-10-PCS; 2020-05-24)
PROC: 0QU03JZ Supplement Lumbar Vertebra with Synthetic Substitute, Percutaneous Approach (ICD-10-PCS; 2020-05-24)
PROC: 0QS03ZZ Reposition Lumbar Vertebra, Percutaneous Approach (ICD-10-PCS; principal; 2020-05-24 17:58)
DX: S32.019A Unspecified fracture of first lumbar vertebra, initial encounter for closed fracture (principal); G93.6 Cerebral edema; C34.90 Malignant neoplasm of unspecified part of unspecified bronchus or lung; C79.81 Secondary malignant neoplasm of breast; N39.0 Urinary tract infection, site not specified; G72.81 Critical illness myopathy; W19.XXXA Unspecified fall, initial encounter; D64.9 Anemia, unspecified; G62.9 Polyneuropathy, unspecified; I25.10 Atherosclerotic heart disease of native coronary artery without angina pectoris; I73.9 Peripheral vascular disease, unspecified; M19.90 Unspecified osteoarthritis, unspecified site; K21.9 Gastro-esophageal reflux disease without esophagitis; F41.9 Anxiety disorder, unspecified; K56.41 Fecal impaction

== ENCOUNTER 2020-06-03 19:49 | Inpatient (IN) | payer MEDICARE, BC ==
[~2020-06-03] VITALS: Ht 160 cm; Wt 75.8 kg
[~2020-06-03 19:49] MED LIST changes: +FLORAJEN3 CAPS460 MG PO; +HYDROCODON-ACE1 EA10 PO; +MEDROL DOSE PACK4 MG PO; +METOPROLOL TART25 MG; +NORFLEX100 MG PO; +OMNICEF300 MG PO; +ROBAXIN PO
[2020-06-03 20:39] LABS: BASOPHILS 0.2 % (0-2); HEMATOCRIT 35.2 % (36.0-48.0); HEMOGLOBIN 10.8 g/dL (12-16); IMMATURE GRANULOCYTES 0.5 % (0-5); LYMPHOCYTE ABS# 2.54 10x3/uL (1.18-3.74); LYMPHOCYTES 20.7 % (15-50); MCH 26.9 pg (26.0-34.0); MCHC 30.7 g/dL (31.0-37.0); MCV 87.6 fL (80.0-100.0); MEAN PLATELET VOLUME 9.9 fL (7.4-10.4); MONOCYTES 7.8 % (2-11); NEUTROPHIL ABS# 8.42 10x3/uL (1.56-6.13); NEUTROPHILS 68.8 % (40-80); RBC 4.02 10x6/uL (4.00-5.40); WBC 12.3 10x3/uL (4.8-10.8)
[2020-06-03 20:43] LABS: CALC OSMOLALITY 286 mosm/kg (275-300); CALCIUM 8.9 mg/dL (8.5-10.1); CARBON DIOXIDE 26.7 mmol/L (21.0-32.0); CHLORIDE - SERUM 104 mmol/L (98-107); CREATININE - SERUM 1.1 mg/dL (0.6-1.3); GLUCOSE 129 mg/dL (74-106); PLATELET COUNT 215 10x3/uL (130-400); POTASSIUM - SERUM 3.4 mmol/L (3.5-5.1); SODIUM 142 mmol/L (136-145); UREA NITROGEN 18 mg/dL (7-18); eGFR NON AFRICAN AMERICAN 50 mL/min (90-120)
[2020-06-03 20:58] LABS: ALKALINE PHOSPHATASE 125 U/L (30-120); ALT (SGPT) 12 U/L (10-68); BILIRUBIN - TOTAL 0.42 mg/dL (0.2-1.3); CREATINE KINASE 21 UL (21-215); LIPASE 81 U/L (73-393); MAGNESIUM - SERUM 1.8 mg/dL (1.8-2.4); PRO BNP 226 pg/mL (0-450); PROTEIN - SERUM 6.5 g/dL (6.4-8.2)
[2020-06-03 20:59] LABS: TROPONIN-I < 0.017 ng/mL (0.000-0.060)
[2020-06-03 22:49] VITALS: BP 131/63; BMI 29.6
[2020-06-03 22:57] VITALS: BMI 29.5
[2020-06-04] VITALS (8 sets, daily range): BP systolic 111–151; BP diastolic 50–72; Ht 160 cm; Wt 75.8 kg
[2020-06-04 01:48] LABS: BILIRUBIN NEGATIVE (NEGATIVE); KETONE NEGATIVE (NEGATIVE); NITRITE NEGATIVE (NEGATIVE); UROBILINOGEN NORMAL mg/dL (< 2)
[2020-06-04 04:52] LABS: BASOPHILS 0.2 % (0-2); EOSINOPHILS 1.7 % (0-7); HEMOGLOBIN 9.5 g/dL (12-16); IMMATURE GRANULOCYTES 0.5 % (0-5); LYMPHOCYTES 29.8 % (15-50); MCHC 29.7 g/dL (31.0-37.0); MCV 87.7 fL (80.0-100.0); MEAN PLATELET VOLUME 10.2 fL (7.4-10.4); MONOCYTES 8.7 % (2-11); NEUTROPHIL ABS# 5.15 10x3/uL (1.56-6.13); NEUTROPHILS 59.1 % (40-80); PLATELET COUNT 218 10x3/uL (130-400); RBC 3.65 10x6/uL (4.00-5.40); RDW 16.8 % (11.5-14.5)
[2020-06-04 05:02] LABS: WBC 8.7 10x3/uL (4.8-10.8)
[2020-06-04 05:14] LABS: ANION GAP 9.4 mmol/L (8-16); CALCIUM 8.3 mg/dL (8.5-10.1); CARBON DIOXIDE 27.5 mmol/L (21.0-32.0); MAGNESIUM - SERUM 1.8 mg/dL (1.8-2.4); PHOSPHOROUS 4.1 mg/dL (2.5-4.9); POTASSIUM - SERUM 3.9 mmol/L (3.5-5.1)
[2020-06-04 05:25] LABS: CREATININE - SERUM 0.8 mg/dL (0.6-1.3)
[2020-06-04 16:45] LABS: CKMB 1.1 U/L (0.0-3.6); CREATINE KINASE 22 UL (21-215); TROPONIN-I < 0.017 ng/mL (0.000-0.060)
[2020-06-05 01:09] LABS: CKMB 0.7 U/L (0.0-3.6); CREATINE KINASE 39 UL (21-215); TROPONIN-I < 0.017 ng/mL (0.000-0.060)
[2020-06-05 04:00] VITALS: BP 144/60
--- NOTE | 2020-06-05 06:24 | NUR ---
PATIENT DENIED PAIN, HEARING AIDS PUT ON BIOMEDICAL EQUIPMENT SUPPORT SPECIALIST, DENTURES ARE IN THE DENTURE CUP, PATIENT APPEARS TO HAVE RESTED WELL THROUGH THE NIGHT, SHE IS CURRENTLY RESTING IN BED WITH HER EYES CLOSED.
[2020-06-05 06:48] LABS: BASOPHILS 0.4 % (0-2); EOSINOPHILS 2.2 % (0-7); HEMATOCRIT 31.3 % (36.0-48.0); HEMOGLOBIN 9.3 g/dL (12-16); IMMATURE GRANULOCYTES 0.2 % (0-5); LYMPHOCYTE ABS# 2.07 10x3/uL (1.18-3.74); LYMPHOCYTES 25.8 % (15-50); MCH 26.3 pg (26.0-34.0); MCHC 29.7 g/dL (31.0-37.0); MCV 88.4 fL (80.0-100.0); MEAN PLATELET VOLUME 9.9 fL (7.4-10.4); MONOCYTES 9.4 % (2-11); NEUTROPHIL ABS# 4.96 10x3/uL (1.56-6.13); PLATELET COUNT 198 10x3/uL (130-400); RBC 3.54 10x6/uL (4.00-5.40); RDW 16.7 % (11.5-14.5)
[2020-06-05 06:49] LABS: ANION GAP 10.9 mmol/L (8-16); CALCIUM 8.3 mg/dL (8.5-10.1); CARBON DIOXIDE 26.7 mmol/L (21.0-32.0); CREATININE - SERUM 0.9 mg/dL (0.6-1.3); MAGNESIUM - SERUM 1.8 mg/dL (1.8-2.4); PHOSPHOROUS 3.4 mg/dL (2.5-4.9); POTASSIUM - SERUM 3.6 mmol/L (3.5-5.1)
[2020-06-05 08:49] VITALS: BP 137/54
--- NOTE | 2020-06-05 10:00 | NUR ---
ASSESSMENT PER FLOW SHEET. PATIENT IS WITHOUT DISTRESS.FALL PREVENTION WITH BED ALARM. DOOR OPEN
--- NOTE | 2020-06-05 10:06 | NUR ---
I HAVE TALKED WITH THERAPY IN REGARDS TO THIS PATIENT. BOTH SPEECH THERAPY AND PHYSICAL THERAPY WILL SEE HER AGAIN TODAY AND I WILL LOOK AT HER AGAIN AFTER THIS IS DONE. THANK YOU FOR THE REFERRAL. WOODY HUDSON RN CLINICAL LIAISON, INPATIENT REHAB.
--- NOTE | 2020-06-05 10:30 | NUR ---
DAUGHTER AT BEDSIDE. SHE IS REFUSING TO LET HER MOM TAKE TESSELON AND MUCINEX ORDERED.SHE ALSO IS NOT HAPPY HER MOM IS ON 02 PER PT. PT TOOK 02 OFF BRIEFLY WHEN THEY GOT PATIENT UP AND HER 02 SATS WENT TO 88-89%. 02 PLACED BACK ON PATIENT PER PT.
--- NOTE | 2020-06-05 11:35 | NUR ---
CALL TO DR VALENTIN. RE.. USE OF PORT
[2020-06-05 12:19] VITALS: BP 141/67
--- NOTE | 2020-06-05 13:39 | MORECARE ---
CASE MANAGEMENT DISCHARGE SUMMARY PATIENT: SHARON SELLERS UNIT: [id number] ADM DATE: 06/03/20 AGE: 84 : 33 SEX: F ROOM/BED: D.2214 AUTHOR: ALINA RANDHAWA PHYSICIAN: REFERRING PHYSICIAN: KAYLA GARBER MD DATE OF SERVICE: 06/05/20 Case Management Discharge Planning Summary DCP REVIEW SUMMARY ANTICIPATED D/C DATE: EXPECTED LOS : CASE STATUS: DCP Initiated INITIAL REVIEW: 06/03/2020 INITIAL REVIEWER: Maia Dougherty FINAL DISCHARGE DISPOSITION: 62 : Discharged/Trans to IP Rehab Facility Including Distinct Units of a Hospital FINAL REVIEWER: FINAL REVIEW DATE: DCP Focus Questions & Answers DCP Screen QUESTION: ANSWER High Risk Factors: : Hosp related to CHF, COPD, DM, End Stage Ds, CVA, CA DCP Evaluation QUESTION: ANSWER Patient gives permission to discuss discharge plans with: (name, relationship and number) : DAUGHTER NANCY Patient's ability to cope with chronic illness : d. No chronic illness Physical Status: : Partial care dependence Physical Status: : Mobility impaired Physical Status: : Incontinent Partial Dependence, assistance required for: : Dressing Partial Dependence, assistance required for: : Bathing Partial Dependence, assistance required for: : Ambulation / Mobility Baseline cognitive status: : *Oriented to person, place, situation, time and present Would patient like to participate in any Care Coordination programs (if applicable): : Not applicable Mental health screen: : No mental health history DCP Re-evaluation QUESTION: ANSWER Would patient like to participate in any Care Coordination programs (if applicable): : Not applicable PATIENT: SHARON SELLERS ENCOUNTER: [id number] MEDICAL RECORD#: [id number] ADMISSION DATE: 06/03/2020 DISCHARGE DATE: ATTENDING MD: KAYLA DAVIS : AGE: 84 MARITAL STATUS: W DC PLAN ID: [id number] FACILITY: [facility] PRINTED ON: 06/05/20 13:39 CT All edits/amendments must be made on the electronic document DICTATION DATE: 06/05/201338 MAINFRAME ANALYST: DM 06/05/20 133 RPT#: [id number] DC DATE: STATUS: ADM IN [facility] [address] [place] [address] END OF REPORT
--- NOTE | 2020-06-05 13:52 | MORECARE ---
CASE MANAGEMENT DISCHARGE SUMMARY PATIENT: SHARON SELLERS UNIT: [id number] ADM DATE: 06/03/20 AGE: 84 : 33 SEX: F ROOM/BED: D.2214 AUTHOR: ALINA RANDHAWA PHYSICIAN: REFERRING PHYSICIAN: KAYLA GARBER MD DATE OF SERVICE: 06/05/20 Case Management Discharge Planning Summary DCP REVIEW SUMMARY ANTICIPATED D/C DATE: EXPECTED LOS : CASE STATUS: DCP Initiated INITIAL REVIEW: 06/03/2020 INITIAL REVIEWER: Maia Dougherty FINAL DISCHARGE DISPOSITION: 62 : Discharged/Trans to IP Rehab Facility Including Distinct Units of a Hospital FINAL REVIEWER: FINAL REVIEW DATE: DCP Focus Questions & Answers DCP Screen QUESTION: ANSWER High Risk Factors: : Hosp related to CHF, COPD, DM, End Stage Ds, CVA, CA DCP Evaluation QUESTION: ANSWER Patient and/or caregiver agree upon recommended discharge plan? : Yes Family / Caregiver's ability to cope with chronic illness: : a. Adequate (ability to meet patient's medical needs, ensures patient attends medical appts.) Patient's current cognitive status: : *Oriented to person, place, situation, time and present Patient gives permission to discuss discharge plans with: (name, relationship and number) : DAUGHTER NANCY Patient's ability to cope with chronic illness : a. Adequate (0-3 ED visits in 6 mos., adequate financial resources, attends scheduled appts.) Does the patient have the ability to pay for or attain post discharge needs / services? : Yes Functional screen assessment: : New onset in difficulty in gait, balance, or transfer difficulties Physical Status: : Partial care dependence Physical Status: : Mobility impaired Physical Status: : Incontinent Family / Caregiver's ability to cope with chronic illness: : a. Adequate (ability to meet patient's medical needs, ensures patient attends medical appts.) Is there a likelihood that the patient will require additional services to return to the preadmission environment? : Yes Partial Dependence, assistance required for: : Dressing Partial Dependence, assistance required for: : Bathing Partial Dependence, assistance required for: : Ambulation / Mobility Living Arrangements: : Assisted Living Results of this evaluation have been discussed with: : Patient Results of this evaluation have been discussed with: : Children Patient with capacity for self-care or can be cared for in same environment as prior to hospitalization? : Yes Baseline cognitive status: : *Oriented to person, place, situation, time and present Living arrangements comments: : LIVES AT [facility] DAUGHTER HAS BEEN STAYING WITH HER Physical environment modification needed / anticipated for discharge: : Yes Comments: : INPATIENT REHAB Preadmission facility can/cannot provide post hospital level of care needs: : Cannot - at same level of care as preadmission Planned post hospital services available for patient? : Yes Pharmacy name(s): : [facility] Planned post hospital services covered by insurance plan? : Yes Does Patient have transportation to get home and to follow-up medical appointments when discharged from the hospital? : Yes Would patient like to participate in any Care Coordination programs (if applicable): : Not applicable Does the patient have electricity at home? : Yes Does the patient have running water in their house? : Yes Equipment in use: : Wheelchair Equipment in use: : Walker - Rolling Equipment in use: : Shower Chair Mental health screen: : No mental health history Psychosocial status: : Elderly handicapped Abuse/Neglect: : None Resources / Services in place: : Home health Resources / Services in place: : Assisted Living Contact information for resources in use: : [facility] DCP Re-evaluation QUESTION: ANSWER Would patient like to participate in any Care Coordination programs (if applicable): : Not applicable PATIENT: SHARON SELLERS ENCOUNTER: [id number] MEDICAL RECORD#: [id number] ADMISSION DATE: 06/03/2020 DISCHARGE DATE: ATTENDING MD: KAYLA DAVIS : AGE: 84 MARITAL STATUS: W DC PLAN ID: [id number] FACILITY: [facility] PRINTED ON: 06/05/20 13:51 CT All edits/amendments must be made on the electronic document DICTATION DATE: 06/05/20 1351 MANAGER COMMUNICATION: DM 06/05/20 135 RPT#: [id number] DC DATE: STATUS: ADM IN [facility] [address] [place] [address] END OF REPORT
--- NOTE | 2020-06-05 14:19 | MORECARE ---
CASE MANAGEMENT DISCHARGE SUMMARY PATIENT: SHARON SELLERS UNIT: [id number] ADM DATE: 06/03/20 AGE: 84 : 33 SEX: F ROOM/BED: D.2214 AUTHOR: ALINA RANDHAWA PHYSICIAN: REFERRING PHYSICIAN: KAYLA GARBER MD DATE OF SERVICE: 06/05/20 Case Management Discharge Planning Summary COMMENTS ENTERED DATE: 06/05/20 13:46 CT COMMENT TYPE: Discharge Planning REVIEWER: Maia Dougherty CM met with patient to complete initial dc planning assessment. CM educated patient on the CM role and verbal consent given by patient to complete assessment. Patient lives at [facility] where she was set up with [employer]. Her daughter has been staying with her and helping her with everything. She has been falling and is very weak at home. At discharge patient plans to go to inpatient rehab at [facility] prior to discharging home this time and feels this is a safe discharge. I also spoke with patient's daughter Nancy to see if there is anything that she would like to add to her discharge plan. She stated that she was just so weak and rehab would be great for her. LAINEY signed has been signed by the patient along with the imm. She has a walker and a wheelchair at home along with a BSC. Patient denied known discharge needs at this time. CM will continue to follow and will assist as needed with dc plans/needs. DCP REVIEW SUMMARY ANTICIPATED D/C DATE: EXPECTED LOS : CASE STATUS: DCP Initiated INITIAL REVIEW: 06/03/2020 INITIAL REVIEWER: Maia Dougherty FINAL DISCHARGE DISPOSITION: 62 : Discharged/Trans to IP Rehab Facility Including Distinct Units of a Hospital FINAL REVIEWER: FINAL REVIEW DATE: DCP Focus Questions & Answers DCP Screen QUESTION: ANSWER High Risk Factors: : Hosp related to CHF, COPD, DM, End Stage Ds, CVA, CA DCP Evaluation QUESTION: ANSWER Patient and/or caregiver agree upon recommended discharge plan? : Yes Family / Caregiver's ability to cope with chronic illness: : a. Adequate (ability to meet patient's medical needs, ensures patient attends medical appts.) Patient's current cognitive status: : *Oriented to person, place, situation, time and present Patient gives permission to discuss discharge plans with: (name, relationship and number) : DAUGHTER NANCY Patient's ability to cope with chronic illness : a. Adequate (0-3 ED visits in 6 mos., adequate financial resources, attends scheduled appts.) Does the patient have the ability to pay for or attain post discharge needs / services? : Yes Functional screen assessment: : New onset in difficulty in gait, balance, or transfer difficulties Physical Status: : Partial care dependence Physical Status: : Mobility impaired Physical Status: : Incontinent Family / Caregiver's ability to cope with chronic illness: : a. Adequate (ability to meet patient's medical needs, ensures patient attends medical appts.) Is there a likelihood that the patient will require additional services to return to the preadmission environment? : Yes Partial Dependence, assistance required for: : Dressing Partial Dependence, assistance required for: : Bathing Partial Dependence, assistance required for: : Ambulation / Mobility Living Arrangements: : Assisted Living Results of this evaluation have been discussed with: : Patient Results of this evaluation have been discussed with: : Children Patient with capacity for self-care or can be cared for in same environment as prior to hospitalization? : Yes Baseline cognitive status: : *Oriented to person, place, situation, time and present Living arrangements comments: : LIVES AT [employer] [facility] DAUGHTER HAS BEEN STAYING WITH HER Physical environment modification needed / anticipated for discharge: : Yes Comments: : INPATIENT REHAB Preadmission facility can/cannot provide post hospital level of care needs: : Cannot - at same level of care as preadmission Planned post hospital services available for patient? : Yes Pharmacy name(s): : [facility] Planned post hospital services covered by insurance plan? : Yes Does Patient have transportation to get home and to follow-up medical appointments when discharged from the hospital? : Yes Would patient like to participate in any Care Coordination programs (if applicable): : Not applicable Does the patient have electricity at home? : Yes Does the patient have running water in their house? : Yes Equipment in use: : Wheelchair Equipment in use: : Walker - Rolling Equipment in use: : Shower Chair Mental health screen: : No mental health history Psychosocial status: : Elderly handicapped Abuse/Neglect: : None Resources / Services in place: : Home health Resources / Services in place: : Assisted Living Contact information for resources in use: : [employer] [facility] Re-evaluation QUESTION: ANSWER Would patient like to participate in any Care Coordination programs (if applicable): : Not applicable PATIENT: SHARON SELLERS ENCOUNTER: [id number] MEDICAL RECORD#: [id number] ADMISSION DATE: 06/03/2020 DISCHARGE DATE: ATTENDING MD: KAYLA DAVIS : AGE: 84 MARITAL STATUS: W DC PLAN ID: [id number] FACILITY: [facility] PRINTED ON: 06/05/20 14:19 CT All edits/amendments must be made on the electronic document DICTATION DATE: 06/05/201418 TELEPHONE OPERATOR RECEPTIONIST: SURESH 06/05/201418 RPT#: [id number] DC DATE: STATUS: ADM IN [facility] [address] [place] [address] END OF REPORT
--- NOTE | 2020-06-05 14:41 | NUR ---
GT BELT, O2 AT 3, PATIENT MIN ASST TO GET UP TO BEDSIDE AND STAND. PATIENT WALKED AROUND BED AND INTO BATHROOM USING WALKER WITH MIN ASST. PATIENT THEN WALKED OUT IN BR[place] FOR 50 FEET USING WALKER WITH MIN ASST. SAT IN CHAIR AFTER WALK.
--- NOTE | 2020-06-05 14:44 | MORECARE ---
CASE MANAGEMENT DISCHARGE SUMMARY PATIENT: SHARON SELLERS UNIT: [id number] ADM DATE: 06/03/20 AGE: 84 : 33 SEX: F ROOM/BED: D.2214 AUTHOR: ALNIA RANDHAWA PHYSICIAN: REFERRING PHYSICIAN: KAYLA GARBER MD DATE OF SERVICE: 06/05/20 Case Management Discharge Planning Summary COMMENTS ENTERED DATE: 06/05/20 13:46 CT COMMENT TYPE: Discharge Planning REVIEWER: Maia Dougherty CM met with patient to complete initial dc planning assessment. CM educated patient on the CM role and verbal consent given by patient to complete assessment. Patient lives at [facility] where she was set up with [employer] Her daughter has been staying with her and helping her with everything. She has been falling and is very weak at home. At discharge patient plans to go to inpatient rehab at [facility] prior to discharging home this time and feels this is a safe discharge. I also spoke with patient's daughter Nancy to see if there is anything that she would like to add to her discharge plan. She stated that she was just so weak and rehab would be great for her. LAINEY signed has been signed by the patient along with the imm. She has a walker and a wheelchair at home along with a BSC. Patient denied known discharge needs at this time. CM will continue to follow and will assist as needed with dc plans/needs. DCP REVIEW SUMMARY ANTICIPATED D/C DATE: EXPECTED LOS : CASE STATUS: DCP Initiated INITIAL REVIEW: 06/03/2020 INITIAL REVIEWER: Maia Dougherty FINAL DISCHARGE DISPOSITION: 62 : Discharged/Trans to IP Rehab Facility Including Distinct Units of a Hospital FINAL REVIEWER: FINAL REVIEW DATE: DCP Focus Questions & Answers DCP Screen QUESTION: ANSWER High Risk Factors: : Hosp related to CHF, COPD, DM, End Stage Ds, CVA, CA DCP Evaluation QUESTION: ANSWER Patient and/or caregiver agree upon recommended discharge plan? : Yes Family / Caregiver's ability to cope with chronic illness: : a. Adequate (ability to meet patient's medical needs, ensures patient attends medical appts.) Patient's current cognitive status: : *Oriented to person, place, situation, time and present Patient gives permission to discuss discharge plans with: (name, relationship and number) : DAUGHTER NANCY Patient's ability to cope with chronic illness : a. Adequate (0-3 ED visits in 6 mos., adequate financial resources, attends scheduled appts.) Does the patient have the ability to pay for or attain post discharge needs / services? : Yes Functional screen assessment: : New onset in difficulty in gait, balance, or transfer difficulties Physical Status: : Partial care dependence Physical Status: : Mobility impaired Physical Status: : Incontinent Family / Caregiver's ability to cope with chronic illness: : a. Adequate (ability to meet patient's medical needs, ensures patient attends medical appts.) Is there a likelihood that the patient will require additional services to return to the preadmission environment? : Yes Partial Dependence, assistance required for: : Dressing Partial Dependence, assistance required for: : Bathing Partial Dependence, assistance required for: : Ambulation / Mobility Living Arrangements: : Assisted Living Results of this evaluation have been discussed with: : Patient Results of this evaluation have been discussed with: : Children Patient with capacity for self-care or can be cared for in same environment as prior to hospitalization? : Yes Baseline cognitive status: : *Oriented to person, place, situation, time and present Living arrangements comments: : LIVES AT [employer] [facility] DAUGHTER HAS BEEN STAYING WITH HER Physical environment modification needed / anticipated for discharge: : Yes Comments: : INPATIENT REHAB Preadmission facility can/cannot provide post hospital level of care needs: : Cannot - at same level of care as preadmission Planned post hospital services available for patient? : Yes Pharmacy name(s): : [facility] Planned post hospital services covered by insurance plan? : Yes Does Patient have transportation to get home and to follow-up medical appointments when discharged from the hospital? : Yes Would patient like to participate in any Care Coordination programs (if applicable): : Not applicable Does the patient have electricity at home? : Yes Does the patient have running water in their house? : Yes Equipment in use: : Wheelchair Equipment in use: : Walker - Rolling Equipment in use: : Shower Chair Mental health screen: : No mental health history Psychosocial status: : Elderly handicapped Abuse/Neglect: : None Resources / Services in place: : Home health Resources / Services in place: : Assisted Living Contact information for resources in use: : [employer] [facility] Re-evaluation QUESTION: ANSWER Would patient like to participate in any Care Coordination programs (if applicable): : Not applicable PATIENT: SHARON SELLERS ENCOUNTER: [id number] MEDICAL RECORD#: [id number] ADMISSION DATE: 06/03/2020 DISCHARGE DATE: ATTENDING MD: KAYLA DAVIS : AGE: 84 MARITAL STATUS: W DC PLAN ID: [id number] FACILITY: [facility] PRINTED ON: 06/05/20 14:44 CT All edits/amendments must be made on the electronic document DICTATION DATE: 06/05/201443 STEAM LOCOMOTIVE FIRER/FIREMAN: SURESH 06/05/201443 RPT#: [id number] DC DATE: STATUS: ADM IN [facility] [address] [place] [address] END OF REPORT
--- NOTE | 2020-06-05 16:58 | NUR ---
OT NOTE: PT COMPLETED SUPINE TO SIT WITH MIN A.PT COMPLETED ADL MOB TO TOILET WITH CGA. PT COMPLETED TOILETING TASKS WITH SBA. PT COMPLETED HAIR GROOMING WITH SETUP. PT COMPLETED FACE HYGIENE WITH SETUP. DAUGHTER PRESENT. DAUGHTER STATED SHE WANTED MOTHER WEANED FROM O2...MOTHER DOSESNT USE AT HOME. WHEN SHE GOES HOME THAT DOESNT NEED TO COME TOO. RAHEEM EDUCATED FAMILY MEMEBER THAT MD/MEDICAL STAFF IS IN CHARGE OF O2. O2 REMOVED FROM PT FOR APPOX. 30 SECONDS WITH VERY MILD ACTIVITY..02 SAT 89 PERCENT. NURSING AWARE. [phone] THANK YOU,RAHEEM HAINES
--- NOTE | 2020-06-05 18:37 | NUR ---
PATINT IS WITHOUT CHANGE FROM INITIAL SHIFT ASSESSMENT. CONT PLAN OF CARE
[2020-06-05 18:40] VITALS: BP 146/52
[2020-06-05 20:00] VITALS: BP 150/64
[2020-06-06] VITALS: BP 135/74
--- NOTE | 2020-06-06 00:52 | NUR ---
PT RAILROADER LIGHT. HELPED PT TO BEDPAN AND CHANGE DEPEND, CHANGE OF BED ALSO. PT HAS NO OTHER NEEDS AT THE MOMENT WILL CONT TO MONITOR
--- NOTE | 2020-06-06 00:59 | NUR ---
I have reviewed this patient and I concur with the Shift Assessment completed by the Licensed Practical Nurse today this shift.
[2020-06-06 04:00] VITALS: BP 184/85
[2020-06-06 05:55] LABS: BASOPHILS 0.1 % (0-2); EOSINOPHILS 0 % (0-7); HEMATOCRIT 30.4 % (36.0-48.0); HEMOGLOBIN 9.4 g/dL (12-16); IMMATURE GRANULOCYTES 0.2 % (0-5); LYMPHOCYTE ABS# 1.27 10x3/uL (1.18-3.74); LYMPHOCYTES 13.4 % (15-50); MCH 26.7 pg (26.0-34.0); MCHC 30.9 g/dL (31.0-37.0); NEUTROPHIL ABS# 7.61 10x3/uL (1.56-6.13); NEUTROPHILS 80.3 % (40-80); PLATELET COUNT 217 10x3/uL (130-400); RBC 3.52 10x6/uL (4.00-5.40); RDW 16.5 % (11.5-14.5); WBC 9.5 10x3/uL (4.8-10.8)
[2020-06-06 06:16] LABS: MCV 86.4 fL (80.0-100.0)
--- NOTE | 2020-06-06 06:16 | NUR ---
IV CAME OUT INTACT. ICU AND MED/SURG NURSES TRY TO GET IV. PT IS UPSET AND REFUSES FOR US TO GET ANY MORE TRYS. PT WANTED TO TALK TO DAUGHTER NANCY AND PER PT & FAM REQUEST NO IV IS IN PLACE AND WE WILL NOT TRY ANYMORE. AM NURSE WILL BE INFORMED. .
[2020-06-06 06:20] LABS: CALC OSMOLALITY 283 mosm/kg (275-300); CALCIUM 8.7 mg/dL (8.5-10.1); CARBON DIOXIDE 25.7 mmol/L (21.0-32.0); CHLORIDE - SERUM 108 mmol/L (98-107); CREATININE - SERUM 0.7 mg/dL (0.6-1.3); GLUCOSE 136 mg/dL (74-106); PHOSPHOROUS 3.6 mg/dL (2.5-4.9); POTASSIUM - SERUM 3.9 mmol/L (3.5-5.1); SODIUM 142 mmol/L (136-145); UREA NITROGEN 10 mg/dL (7-18); eGFR NON AFRICAN AMERICAN 84 mL/min (90-120)
--- NOTE | 2020-06-06 08:40 | NUR ---
TALKED TO LORAINE MAYER, REGARDING PT LACK OF IV. SHE STATES THAT SHE PUT IN MESSAGE ON 06/[address] VALENTIN ABOUT USING PT INFUSAPORT. PT FAMILY REFUSING TO ALLOW PORT ACCESS, STATING THAT "HER PORT WAS PUT IN FOR CHEMO, AND THEY WERE HAVING TROUBLE ACCESSING IT LATELY, AND SHE STILL HAS A LOT OF CHEMO LEFT TO GO." DR. VALENTIN PAGED TO DISCUSS FAMILY WISHES.
[2020-06-06 08:42] VITALS: BP 141/64
--- NOTE | 2020-06-06 09:46 | NUR ---
PATIENT IS A GOOD CANDIDATE FOR INPATIENT REHAB. WE WILL TAKE HER TODAY IF THE PHYSICIAN FEELS SHE IS STABLE FOR DISCHARGE. I WILL BEGIN HER ELECTRONIC SCREE, AND WE WILL GIVE HER ROOM NUMBER WHEN APPROVALS ARE IN PLACE. I HAVE EXPLAINED THIS TO ZULLY LARIOS RN CM. THANK YOU FOR THIS REFERRAL! WOODY HUDSON RN CLINICAL LIAISON, INPATIENT REHAB.
--- NOTE | 2020-06-06 10:32 | MORECARE ---
CASE MANAGEMENT DISCHARGE SUMMARY PATIENT: SHARON SELLERS UNIT: [id number] ADM DATE: 06/03/20 AGE: 84 : 33 SEX: F ROOM/BED: D.2214 AUTHOR: SYDNEEDOC PHYSICIAN: REFERRING PHYSICIAN: KAYLA GARBER MD DATE OF SERVICE: 06/06/20 Case Management Discharge Planning Summary COMMENTS ENTERED DATE: 06/06/20 10:27 CT COMMENT TYPE: Discharge Planning REVIEWER: Maia Dougehrty PATIENT HAS BEEN ACCEPTED TO INPATIENT REHAB AT [facility], WILL LET MD KNOW ENTERED DATE: 06/05/20 13:46 CT COMMENT TYPE: Discharge Planning REVIEWER: Maia Dougherty CM met with patient to complete initial dc planning assessment. CM educated patient on the CM role and verbal consent given by patient to complete assessment. Patient lives at [facility] where she was set up with [facility]. Her daughter has been staying with her and helping her with everything. She has been falling and is very weak at home. At discharge patient plans to go to inpatient rehab at [facility] prior to discharging home this time and feels this is a safe discharge. I also spoke with patient's daughter Nancy to see if there is anything that she would like to add to her discharge plan. She stated that she was just so weak and rehab would be great for her. LAINEY signed has been signed by the patient along with the imm. She has a walker and a wheelchair at home along with a BSC. Patient denied known discharge needs at this time. CM will continue to follow and will assist as needed with dc plans/needs. DCP REVIEW SUMMARY ANTICIPATED D/C DATE: EXPECTED LOS : CASE STATUS: DCP Initiated INITIAL REVIEW: 06/03/2020 INITIAL REVIEWER: Maia Dougherty FINAL DISCHARGE DISPOSITION: 62 : Discharged/Trans to Rehab Facility Including Distinct Units of a Hospital FINAL REVIEWER: FINAL REVIEW DATE: DCP Focus Questions & Answers DCP Screen QUESTION: ANSWER High Risk Factors: : Hosp related to CHF, COPD, DM, End Stage Ds, CVA, CA DCP Evaluation QUESTION: ANSWER Patient and/or caregiver agree upon recommended discharge plan? : Yes Family / Caregiver's ability to cope with chronic illness: : a. Adequate (ability to meet patient's medical needs, ensures patient attends medical appts.) Patient's current cognitive status: : *Oriented to person, place, situation, time and present Patient gives permission to discuss discharge plans with: (name, relationship and number) : DAUGHTER NANCY Patient's ability to cope with chronic illness : a. Adequate (0-3 ED visits in 6 mos., adequate financial resources, attends scheduled appts.) Does the patient have the ability to pay for or attain post discharge needs / services? : Yes Functional screen assessment: : New onset in difficulty in gait, balance, or transfer difficulties Physical Status: : Partial care dependence Physical Status: : Mobility impaired Physical Status: : Incontinent Family / Caregiver's ability to cope with chronic illness: : a. Adequate (ability to meet patient's medical needs, ensures patient attends medical appts.) Is there a likelihood that the patient will require additional services to return to the preadmission environment? : Yes Partial Dependence, assistance required for: : Dressing Partial Dependence, assistance required for: : Bathing Partial Dependence, assistance required for: : Ambulation / Mobility Living Arrangements: : Assisted Living Results of this evaluation have been discussed with: : Patient Results of this evaluation have been discussed with: : Children Patient with capacity for self-care or can be cared for in same environment as prior to hospitalization? : Yes Baseline cognitive status: : *Oriented to person, place, situation, time and present Living arrangements comments: : LIVES AT [facility] DAUGHTER HAS BEEN STAYING WITH HER Physical environment modification needed / anticipated for discharge: : Yes Comments: : INPATIENT REHAB Preadmission facility can/cannot provide post hospital level of care needs: : Cannot - at same level of care as preadmission Planned post hospital services available for patient? : Yes Pharmacy name(s): : [facility] Planned post hospital services covered by insurance plan? : Yes Does Patient have transportation to get home and to follow-up medical appointments when discharged from the hospital? : Yes Would patient like to participate in any Care Coordination programs (if applicable): : Not applicable Does the patient have electricity at home? : Yes Does the patient have running water in their house? : Yes Equipment in use: : Wheelchair Equipment in use: : Walker - Rolling Equipment in use: : Shower Chair Mental health screen: : No mental health history Psychosocial status: : Elderly handicapped Abuse/Neglect: : None Resources / Services in place: : Home health Resources / Services in place: : Assisted Living Contact information for resources in use: : [employer] [facility] DCP Re-evaluation QUESTION: ANSWER Would patient like to participate in any Care Coordination programs (if applicable): : Not applicable PATIENT: SHARON SELLERS ENCOUNTER: [id number] MEDICAL RECORD#: [id number] ADMISSION DATE: 06/03/2020 DISCHARGE DATE: ATTENDING MD: KAYLA DAVIS : AGE: 84 MARITAL STATUS: W DC PLAN ID: [id number] FACILITY: [facility] PRINTED ON: 06/06/20 10:32 CT All edits/amendments must be made on the electronic document DICTATION DATE: 06/06/201031 EMERGENCY WORKER: SURESH 06/06/20 103 RPT#: [id number] DC DATE: STATUS: ADM IN [facility] [address] [place] [address] END OF REPORT
--- NOTE | 2020-06-06 11:27 | NUR ---
1030 - LEFT INFUSAPORT ACCESSED USING 19G 1" PRYOR NEEDLE. OCCLUSIVE DRESSING PLACED AND IVF RESTARTED ORDERED.
--- NOTE | 2020-06-06 13:12 | NUR ---
Nutrition follow-up: Diet order: Reglar as tolerated PO Intake continues to be poor Labs reviewed Wt: 167# + BM Will continue to provide food choices and honor food preferences Will offer nutritional supplementss pt may benefit from an appetite stimulant Follow-up: 06/10/20
[2020-06-06 14:04] VITALS: BP 111/51
--- NOTE | 2020-06-06 14:28 | NUR ---
PATIENT DIDNT HAVE O2 ON WHEN ENTERED THE ROOM HER STATS WAS 90 WENT TO 95 ON 2 LITERS WALKED 210 FEET WITH WALKER AND GT BELT A BIT UNSTEADY WHILE WALKING LOSE BALANCE 2 TIMES AND STOPPED 3 TIMES TO REST
[2020-06-06 16:49] VITALS: BP 124/57
--- NOTE | 2020-06-06 18:07 | NUR ---
OT NOTE: PT COMPLETED SUPINE TO SIT WITH CGA. PT COMPLETED ADL MOB WITH CGA. PT COMPLETED TOILETING WITH SBA. PT COMPLETED TOILET HYGIENE WITH SBA. PT COMPLETED FELICE SLIPPERS WITH MOD A. PT COMPLETED EOB SITTING WITH SBA. PT [address]. NURSING NOTIFIED PT DID NOT HAVE 02 ON WHEN ENTERING ROOM. 02 SAT AT 90 AT THAT TIME. PT 02 SAT AT 95 WITH 02. [phone] THANK YOU,RAHEEM HAINES
[2020-06-06 20:00] VITALS: BP 147/72
[2020-06-07] VITALS: BP 118/73
[2020-06-07 04:00] VITALS: BP 170/71
[2020-06-07 07:10] LABS: CALC OSMOLALITY 288 mosm/kg (275-300); CALCIUM 8.5 mg/dL (8.5-10.1); CHLORIDE - SERUM 110 mmol/L (98-107); CREATININE - SERUM 0.7 mg/dL (0.6-1.3); GLUCOSE 94 mg/dL (74-106); MAGNESIUM - SERUM 1.9 mg/dL (1.8-2.4); PHOSPHOROUS 3.6 mg/dL (2.5-4.9); POTASSIUM - SERUM 3.5 mmol/L (3.5-5.1); SODIUM 145 mmol/L (136-145); UREA NITROGEN 12 mg/dL (7-18); eGFR NON AFRICAN AMERICAN 84 mL/min (90-120)
[2020-06-07 07:12] LABS: BASOPHILS 0.2 % (0-2); EOSINOPHILS 1.9 % (0-7); HEMATOCRIT 28.9 % (36.0-48.0); HEMOGLOBIN 8.7 g/dL (12-16); IMMATURE GRANULOCYTES 0.2 % (0-5); LYMPHOCYTE ABS# 1.95 10x3/uL (1.18-3.74); LYMPHOCYTES 20.5 % (15-50); MCH 26.1 pg (26.0-34.0); MCHC 30.1 g/dL (31.0-37.0); MCV 86.8 fL (80.0-100.0); MONOCYTES 6.8 % (2-11); NEUTROPHIL ABS# 6.68 10x3/uL (1.56-6.13); NEUTROPHILS 70.4 % (40-80); PLATELET COUNT 225 10x3/uL (130-400); RBC 3.33 10x6/uL (4.00-5.40); RDW 16.7 % (11.5-14.5); WBC 9.5 10x3/uL (4.8-10.8)
[2020-06-07 07:23] VITALS: BP 170/80
--- NOTE | 2020-06-07 09:00 | NUR ---
RECIEVED BEDSIDE REPORT. BED LOW POSITION, CALL LIGHT IN REACH. DAUGHTER AT BEDSIDE. WILL CONTINUE TO MONITOR.
[2020-06-07] MEDS ORDERED: ACETAMINOPHEN500 M1 PO (09:34)
[2020-06-07] MEDS ORDERED: PROTONIX40 MG PO (09:34)
[2020-06-07] MEDS ORDERED: TESSALON PERLE100 MG PO (09:34)
[2020-06-07] MEDS ORDERED: Decadron INJ IV (09:34)
[2020-06-07] MEDS ORDERED: VANCOMYCIN 1 GM/1 G1 IV (09:34)
[2020-06-07] MEDS ORDERED: MUCINEX600 MG PO (09:34)
[2020-06-07] MEDS ORDERED: IPRAT-ALBUT 0.5-3 ML UPD (09:34)
[2020-06-07] MEDS ORDERED: Zosyn 3.375 GM/D5W 5 IV (09:34)
[2020-06-07] MEDS ORDERED: ALBUTEROL1.25 MG/3 UPD (09:34)
--- NOTE | 2020-06-07 11:41 | NUR ---
CALLED REPORT TO [facility] NURSE IN REHAB. WILL SALINE LOCK IV AND SEND PATIENT WITH LUNCH TRAY.
--- NOTE | 2020-06-07 12:28 | NUR ---
DISCHARGE PAPERS COMPLETE. NO FURTHER QUESTIONS. GATHERED BELONGINGS. ATE LUNCH. LEFT UNIT VIA WHEELCHAIR TO REHAB UNIT.
--- NOTE | 2020-06-07 12:36 | MORECARE ---
CASE MANAGEMENT DISCHARGE SUMMARY PATIENT: SHARON SELLERS UNIT: [id number] ADM DATE: 06/03/20 AGE: 84 : 33 SEX: F ROOM/BED: D.2214 AUTHOR: SYDNEE,DOC PHYSICIAN: REFERRING PHYSICIAN: KAYLA GARBER MD DATE OF SERVICE: 06/07/20 Case Management Discharge Planning Summary COMMENTS ENTERED DATE: 06/06/20 10:27 CT COMMENT TYPE: Discharge Planning REVIEWER: Maia Dougherty PATIENT HAS BEEN ACCEPTED TO INPATIENT REHAB AT [facility] [place] [place], WILL LET MD KNOW ENTERED DATE: 06/05/20 13:46 CT COMMENT TYPE: Discharge Planning REVIEWER: Maia Dougherty CM met with patient to complete initial dc planning assessment. CM educated patient on the CM role and verbal consent given by patient to complete assessment. Patient lives at [facility] where she was set up with [facility]. Her daughter has been staying with her and helping her with everything. She has been falling and is very weak at home. At discharge patient plans to go to inpatient rehab at [facility] [place] [place] prior to discharging home this time and feels this is a safe discharge. I also spoke with patient's daughter Nancy to see if there is anything that she would like to add to her discharge plan. She stated that she was just so weak and rehab would be great for her. LAINEY signed has been signed by the patient along with the imm. She has a walker and a wheelchair at home along with a BSC. Patient denied known discharge needs at this time. CM will continue to follow and will assist as needed with dc plans/needs. DCP REVIEW SUMMARY ANTICIPATED D/C DATE: EXPECTED LOS : CASE STATUS: DCP Initiated INITIAL REVIEW: 06/03/2020 INITIAL REVIEWER: Maia Dougherty FINAL DISCHARGE DISPOSITION: 62 : Discharged/Trans to Rehab Facility Including Distinct Units of a Hospital FINAL REVIEWER: FINAL REVIEW DATE: DCP Focus Questions & Answers DCP Screen QUESTION: ANSWER High Risk Factors: : Hosp related to CHF, COPD, DM, End Stage Ds, CVA, CA DCP Evaluation QUESTION: ANSWER Patient and/or caregiver agree upon recommended discharge plan? : Yes Patient's current cognitive status: : *Oriented to person, place, situation, time and present Patient's ability to cope with chronic illness : a. Adequate (0-3 ED visits in 6 mos., adequate financial resources, attends scheduled appts.) Patient gives permission to discuss discharge plans with: (name, relationship and number) : DAUGHTER NANCY Family / Caregiver's ability to cope with chronic illness: : a. Adequate (ability to meet patient's medical needs, ensures patient attends medical appts.) Does the patient have the ability to pay for or attain post discharge needs / services? : Yes Functional screen assessment: : New onset in difficulty in gait, balance, or transfer difficulties Family / Caregiver's ability to cope with chronic illness: : a. Adequate (ability to meet patient's medical needs, ensures patient attends medical appts.) Physical Status: : Incontinent Physical Status: : Mobility impaired Physical Status: : Partial care dependence Is there a likelihood that the patient will require additional services to return to the preadmission environment? : Yes Living Arrangements: : Assisted Living Partial Dependence, assistance required for: : Ambulation / Mobility Partial Dependence, assistance required for: : Bathing Partial Dependence, assistance required for: : Dressing Results of this evaluation have been discussed with: : Children Results of this evaluation have been discussed with: : Patient Patient with capacity for self-care or can be cared for in same environment as prior to hospitalization? : Yes Baseline cognitive status: : *Oriented to person, place, situation, time and present Living arrangements comments: : LIVES AT [facility] DAUGHTER HAS BEEN STAYING WITH HER Comments: : INPATIENT REHAB Physical environment modification needed / anticipated for discharge: : Yes Preadmission facility can/cannot provide post hospital level of care needs: : Cannot - at same level of care as preadmission Planned post hospital services available for patient? : Yes Pharmacy name(s): : [facility] Planned post hospital services covered by insurance plan? : Yes Does Patient have transportation to get home and to follow-up medical appointments when discharged from the hospital? : Yes Would patient like to participate in any Care Coordination programs (if applicable): : Not applicable Does the patient have electricity at home? : Yes Does the patient have running water in their house? : Yes Equipment in use: : Shower Chair Equipment in use: : Walker - Rolling Equipment in use: : Wheelchair Mental health screen: : No mental health history Psychosocial status: : Elderly handicapped Abuse/Neglect: : None Resources / Services in place: : Assisted Living Resources / Services in place: : Home health Contact information for resources in use: : [facility] DCP Re-evaluation QUESTION: ANSWER Would patient like to participate in any Care Coordination programs (if applicable): : Not applicable PATIENT: SHARON SELLERS ENCOUNTER: [id number] MEDICAL RECORD#: [id number] ADMISSION DATE: 06/03/2020 DISCHARGE DATE: 06/07/2020 ATTENDING MD: KAYLA DAVIS : 1936- AGE: 84 MARITAL STATUS: W DC PLAN ID: [id number] FACILITY: [facility] PRINTED ON: 06/07/20 12:36 CT All edits/amendments must be made on the electronic document DICTATION DATE: 06/07/20 1235 JUKE BOX SERVICER: SURESH 06/07/20 1235 RPT#: [id number] DC DATE:06/07/20 STATUS: DIS IN [facility] [address] [place] [address] END OF REPORT
--- NOTE | 2020-06-07 14:56 | NUR ---
PATIENT IN CHAIR, MIN ASST TO STAND FROM CHAIR AND MIN ASST TO WALK INTO BATHROOM AND BACK OUT TO CHAIR.
--- NOTE | 2020-06-07 15:34 | NUR ---
OT NOTE: UPON ENTERING PT UP IN CHAIR. DAUGHTER LAYING ON BED. MACIEL TO ASSIST PT FOR SIT TO STAND. DAUGHTER STATED MOTHER DID NOT NEED ASSIST WITH STANDING FROM CHAIR. PT ATTEMPTED 3 TIMES. PT REQUIRED CGA-MIN A FOR SIT TO STAND. PT REQUIRED CGA FOR ADL MOBILITY . PT REQUIRED TOTAL A FOR MEDICAL EQUIPMENT MANAGEMENT. PT COMPLETED TOILET HYGIENE WITH SETUP. DAUGHTER REQUEST TUBING BE PUT ON OUTSIDE OF GOWN. DAUGHTER WANTED TO KNOW WHY ACCOUNT MANAGER TRAINEE HAND PUT TUBING UNDER GOWN. MACIEL STATED SHE DID NOT KNOW. DAUGHTER STATED IT IS BECAUSE THE ACCOUNT MANAGER TRAINEE IS BEING LAZY. MCAIEL READJUSTED TUBES AND GOWN. [id number] THANKRADHA RASCON COTA
--- NOTE | 2020-06-09 13:23 | MORECARE ---
CASE MANAGEMENT DISCHARGE SUMMARY PATIENT: SHARON SELLERS UNIT: [id number] ADM DATE: 06/03/20 AGE: 84 : 33 SEX: F ROOM/BED: D.2214 AUTHOR: SYDNEEDOC PHYSICIAN: REFERRING PHYSICIAN: KAYLA GARBER MD DATE OF SERVICE: 06/09/20 Case Management Discharge Planning Summary COMMENTS ENTERED DATE: 06/06/20 10:27 CT COMMENT TYPE: Discharge Planning REVIEWER: Maia Dougherty PATIENT HAS BEEN ACCEPTED TO INPATIENT REHAB AT [facility], WILL LET MD KNOW ENTERED DATE: 06/05/20 13:46 CT COMMENT TYPE: Discharge Planning REVIEWER: Maia Dougherty CM met with patient to complete initial dc planning assessment. CM educated patient on the CM role and verbal consent given by patient to complete assessment. Patient lives at [place] where she was set up with [facility]. Her daughter has been staying with her and helping her with everything. She has been falling and is very weak at home. At discharge patient plans to go to inpatient rehab at [facility] prior to discharging home this time and feels this is a safe discharge. I also spoke with patient's daughter Nancy to see if there is anything that she would like to add to her discharge plan. She stated that she was just so weak and rehab would be great for her. LAINEY signed has been signed by the patient along with the imm. She has a walker and a wheelchair at home along with a BSC. Patient denied known discharge needs at this time. CM will continue to follow and will assist as needed with dc plans/needs. DCP REVIEW SUMMARY ANTICIPATED D/C DATE: EXPECTED LOS : CASE STATUS: DCP Initiated INITIAL REVIEW: 06/03/2020 INITIAL REVIEWER: Maia Dougherty FINAL DISCHARGE DISPOSITION: 62 : Discharged/Trans to Rehab Facility Including Distinct Units of a Hospital FINAL REVIEWER: FINAL REVIEW DATE: DCP Focus Questions & Answers DCP Screen QUESTION: ANSWER High Risk Factors: : Hosp related to CHF, COPD, DM, End Stage Ds, CVA, CA DCP Evaluation QUESTION: ANSWER Patient's ability to cope with chronic illness : a. Adequate (0-3 ED visits in 6 mos., adequate financial resources, attends scheduled appts.) Patient gives permission to discuss discharge plans with: (name, relationship and number) : DAUGHTER NANCY Patient's current cognitive status: : *Oriented to person, place, situation, time and present Family / Caregiver's ability to cope with chronic illness: : a. Adequate (ability to meet patient's medical needs, ensures patient attends medical appts.) Patient and/or caregiver agree upon recommended discharge plan? : Yes Family / Caregiver's ability to cope with chronic illness: : a. Adequate (ability to meet patient's medical needs, ensures patient attends medical appts.) Physical Status: : Incontinent Physical Status: : Mobility impaired Physical Status: : Partial care dependence Functional screen assessment: : New onset in difficulty in gait, balance, or transfer difficulties Does the patient have the ability to pay for or attain post discharge needs / services? : Yes Living Arrangements: : Assisted Living Partial Dependence, assistance required for: : Ambulation / Mobility Partial Dependence, assistance required for: : Bathing Partial Dependence, assistance required for: : Dressing Is there a likelihood that the patient will require additional services to return to the preadmission environment? : Yes Living arrangements comments: : LIVES AT [facility] DAUGHTER HAS BEEN STAYING WITH HER Baseline cognitive status: : *Oriented to person, place, situation, time and present Patient with capacity for self-care or can be cared for in same environment as prior to hospitalization? : Yes Results of this evaluation have been discussed with: : Children Results of this evaluation have been discussed with: : Patient Preadmission facility can/cannot provide post hospital level of care needs: : Cannot - at same level of care as preadmission Comments: : INPATIENT REHAB Physical environment modification needed / anticipated for discharge: : Yes Pharmacy name(s): : [facility] Planned post hospital services available for patient? : Yes Does Patient have transportation to get home and to follow-up medical appointments when discharged from the hospital? : Yes Planned post hospital services covered by insurance plan? : Yes Would patient like to participate in any Care Coordination programs (if applicable): : Not applicable Does the patient have electricity at home? : Yes Does the patient have running water in their house? : Yes Equipment in use: : Shower Chair Equipment in use: : Walker - Rolling Equipment in use: : Wheelchair Mental health screen: : No mental health history Psychosocial status: : Elderly handicapped Abuse/Neglect: : None Resources / Services in place: : Assisted Living Resources / Services in place: : Home health Contact information for resources in use: : [facility] DCP Re-evaluation QUESTION: ANSWER Would patient like to participate in any Care Coordination programs (if applicable): : Not applicable PATIENT: SHARON SELLERS ENCOUNTER: [id number] MEDICAL RECORD#: [id number] ADMISSION DATE: 06/03/2020 DISCHARGE DATE: 06/07/2020 ATTENDING MD: KAYLA DAVIS : 1936- AGE: 84 MARITAL STATUS: W DC PLAN ID: [id number] FACILITY: [facility] PRINTED ON: 06/09/20 13:23 CT All edits/amendments must be made on the electronic document DICTATION DATE: 06/09/20 132 MACHINE SWEEPER BRUSH MAKER: SURESH 06/09/20 1323 RPT#: [id number] DC DATE:06/07/20 STATUS: DIS IN [facility] [address] [place] [address] END OF REPORT
== END 2020-06-07 12:30 | DRG 139 ==
LOC: D.ER 19:49 → D.MS 21:56
PROVIDERS: Family Medicine; ADMIT Emergency Medicine; ATTEND Emergency Medicine
DX: J18.9 Pneumonia, unspecified organism (principal); G93.6 Cerebral edema; N39.0 Urinary tract infection, site not specified; C79.31 Secondary malignant neoplasm of brain; C34.90 Malignant neoplasm of unspecified part of unspecified bronchus or lung; Y95 Nosocomial condition; R55 Syncope and collapse; W18.30XA Fall on same level, unspecified, initial encounter; Z91.81 History of falling; Y93.01 Activity, walking, marching and hiking; Y92.002 Bathroom of unspecified non-institutional (private) residence as the place of occurrence of the external cause; I25.10 Atherosclerotic heart disease of native coronary artery without angina pectoris; Z95.1 Presence of aortocoronary bypass graft; K21.9 Gastro-esophageal reflux disease without esophagitis; F41.9 Anxiety disorder, unspecified; M19.90 Unspecified osteoarthritis, unspecified site

== ENCOUNTER 2020-06-07 12:41 | Inpatient (IN) | payer MEDICARE, BC ==
[~2020-06-07] VITALS: Ht 160 cm; Wt 68.0 kg
[~2020-06-07 12:41] MED LIST changes: +ACETAMINOPHEN500 M1 PO; +ALBUTEROL1.25 MG/3 UPD; +Decadron INJ IV; +IPRAT-ALBUT 0.5-3 ML UPD; +MUCINEX600 MG PO; +TESSALON PERLE100 MG PO; +VANCOMYCIN 1 GM/1 G1 IV; +Zosyn 3.375 GM/D5W 5 IV
[2020-06-07 14:50] VITALS: BP 151/78; BMI 29.2
[2020-06-07 20:18] VITALS: BP 180/92
--- NOTE | 2020-06-07 20:30 | NUR ---
PATIENT RECEIVED SITTING UP IN BED. ASSESSMENT & VITAL SIGNS DONE. NO C/O PAIN OR DISTRESS AT THIS TIME. BED LOW. ALARM ON. CALL LIGHT WITHIN REACH. WILL CONTINUE TO MONITOR.
--- NOTE | 2020-06-07 23:45 | NUR ---
PATIENT USED CALL LIGHT FOR ASSIST. PATIENT MOD ASSIST INTO & OUT OF BED. MINIMAL ASSIST OUT & IN WHEELCHAIR. VOID ONLY. RETURNED TO LOW BED. ALARM ON. CALL LIGHT WITHIN REACH. WILL CONTINUE TO MONITOR.
--- NOTE | 2020-06-08 01:00 | NUR ---
I have reviewed this patient and I concur with the Shift Assessment completed by the Licensed Practical Nurse today this shift.
[2020-06-08 03:43] VITALS: BP 152/71
[2020-06-08 05:54] LABS: BASOPHILS 0.2 % (0-2); EOSINOPHILS 2.7 % (0-7); HEMATOCRIT 28.2 % (36.0-48.0); HEMOGLOBIN 8.7 g/dL (12-16); IMMATURE GRANULOCYTES 0.2 % (0-5); LYMPHOCYTES 29.2 % (15-50); MCH 26.5 pg (26.0-34.0); MCHC 30.9 g/dL (31.0-37.0); MEAN PLATELET VOLUME 9.4 fL (7.4-10.4); NEUTROPHIL ABS# 5.52 10x3/uL (1.56-6.13); NEUTROPHILS 59.7 % (40-80); PLATELET COUNT 246 10x3/uL (130-400); RBC 3.28 10x6/uL (4.00-5.40); RDW 16.7 % (11.5-14.5); WBC 9.3 10x3/uL (4.8-10.8)
[2020-06-08 06:03] LABS: CALC OSMOLALITY 287 mosm/kg (275-300); CALCIUM 8.4 mg/dL (8.5-10.1); CARBON DIOXIDE 28.1 mmol/L (21.0-32.0); CHLORIDE - SERUM 110 mmol/L (98-107); CREATININE - SERUM 0.7 mg/dL (0.6-1.3); GLUCOSE 91 mg/dL (74-106); POTASSIUM - SERUM 3.2 mmol/L (3.5-5.1); SODIUM 145 mmol/L (136-145); UREA NITROGEN 11 mg/dL (7-18); eGFR NON AFRICAN AMERICAN 84 mL/min (90-120)
[2020-06-08 09:32] VITALS: BP 154/82
[2020-06-08 10:08] VITALS: Ht 160 cm; Wt 68.0 kg
--- NOTE | 2020-06-08 11:21 | NUR ---
SHE IS FEELING BETTER, SHE WAS C/O A HEADACHE AND NAUSEA DURING SHIFT BEDSIDE REPORT. TYLENOL AND ZOFRAN GIVEN. SHE STATES HER HEADACHE IS ALMOST GONE. HER SAT DROPPED TO 84% WHILE WALKING WITH PT, PLACED ON 2 LITERS NC. SAT IS 95% ON THE 2 LITERS. THE CALL LIGHT IS WITHIN REACH AND THE BED ALARM IS ON.
[2020-06-08 19:14] VITALS: BP 129/59
--- NOTE | 2020-06-08 19:42 | NUR ---
PATIENT RECIEVED SITTING UP IN BED. DAUGHTER AT BEDSIDE. ASSESSMENT & VITAL SIGNS DONE. NO C/O PAIN OR DISTRESS. BED LOW. ALARM ON. CALL LIGHT WITHIN REACH. WILL CONTINUE TO MONITOR.
--- NOTE | 2020-06-09 03:41 | NUR ---
PATIENT EYES CLOSED. RESPIRATIONS 19 & EVEN. NO ADVERSE REACTION TO IV ANTIBIOTICS NOTED AT THIS TIME. BED LOW. BEDSIDE TABLE & CALL LIGHT WITHIN REACH. WILL CONTINUE TO MONITOR.
--- NOTE | 2020-06-09 05:18 | NUR ---
I have reviewed this patient and I concur with the Shift Assessment completed by the Licensed Practical Nurse today this shift.
[2020-06-09 07:30] VITALS: BP 159/80
--- NOTE | 2020-06-09 09:00 | NUR ---
SHE IS ASLEEP. I WOKE HER UP FOR BREAKFAST AND MEDICAITONS. HER SAT IS 88% ON ROOM AIR, 2 LITERS NC SAT UP TO 93%. HER DAUGHTER IS AT THE BEDSIDE. DENIES ANY NEEDS AT THE PRESENT TIME, SHE DAUGHTER HELPED GET HER DRESSED. THE CALL LIGHT IS WITHIN REACH AND SHE IS SETTING UP IN THE CHAIR WITH THE ALARM ON.
[2020-06-09 19:00] VITALS: BP 166/75
--- NOTE | 2020-06-09 19:27 | NUR ---
PATIENT RECEIVED SITTING UP IN CHAIR AT BEDSIDE. IV FLUIDS FINISHED. NIFUSAPORT DISCONNECTED. NEW CAPS APPLIED. ASSESSMENT & VITAL SIGNS DONE. NO C/O PAIN OR DISTRESS AT THIS TIME. CALL LIGHT WITHIN REACH. CHAIR ALARM ON. WILL CONTINUE TO MONITOR.
--- NOTE | 2020-06-10 02:26 | NUR ---
PATIENT EYES CLOSED. RESPIRATIONS 20 & EVEN. 02 @ 2L CONTINUES. BED LOW. CALL LIGHT & BEDSIDE TABLE WITHIN REACH. ALARM ON. WILL CONTINUE TO MONITOR.
--- NOTE | 2020-06-10 03:32 | NUR ---
I have reviewed this patient and I concur with the Shift Assessment completed by the Licensed Practical Nurse today this shift.
[2020-06-10 07:28] LABS: CREATININE - SERUM 0.9 mg/dL (0.6-1.3); VANCOMYCIN - RANDOM 11.5 ug/mL (10.0-20.0)
--- NOTE | 2020-06-10 07:40 | NUR ---
PT RESTING IN BED WITH EYES OPEN CALL LIGHT IN REACH WILL MONITER
[2020-06-10 08:09] VITALS: BP 170/73
--- NOTE | 2020-06-10 17:59 | NUR ---
PT RESTING IN BED WITH EYES OPEN CALL LIGHT IN REACH WILL MONITER
--- NOTE | 2020-06-10 19:31 | NUR ---
PT IN BED FAMILY AT BEDSIDE, NO NEEDS NOTED, FLUIDS/CL WITHIN REACH
[2020-06-10 21:44] VITALS: BP 169/76
--- NOTE | 2020-06-11 01:20 | NUR ---
SCHEDULED VANC FINISHED, SCHEDULED PIPERCILLIAN STARTED 50ML/30MIN, LFT SUBCLAVIAN PORT PATENT
--- NOTE | 2020-06-11 07:22 | NUR ---
PT RESTING IN BED WITH EYES OPEN CALL LIGHT IN REACH WILL MONITER
[2020-06-11 08:00] VITALS: BP 175/74
--- NOTE | 2020-06-11 11:51 | NUR ---
PATIENT ADMITTED TO REHAB FROM ACUTE FLOOR. PATIENT LIVES AT [facility] AND IS A CLIENT OF [facility]. DME AT HOME IS A WALKER, WHEELCHAIR AND A BEDSIDE COMMODE. HER PCP IS DR. ROBIN MTZ AND SHE IS FOLLOWED BY DR. VALENTIN. DISCHARGE PLAN IS FOR HER TO RETURN TO HER HOME WITH HER DAUGHTER. WILL CONTINUE TO FOLLOW WITH PATIENT.
--- NOTE | 2020-06-11 16:00 | NUR ---
Nutrition Follow-up: Diet: Regular PO Intake: 100% x 3 meals yesterday Last BM: 06/11/20 Wt: 150# (06/08/20) Meds noted: probiotics, abx, micro-k, MVI Labs reviewed Recommend continue current diet. RD will follow-up within 7 days.
--- NOTE | 2020-06-11 18:26 | NUR ---
PT RESTING IN BED WITH EYES OPEN CALL LIGHT IN REACH WILL MONITER
[2020-06-11 19:00] VITALS: BP 163/70
--- NOTE | 2020-06-12 01:31 | NUR ---
PT RESTING WITH EYES CLOSED. RESPIRATONS EVEN AND UNLABORED. HER BED IS LOW, BED ALARM ON AND CALL LIGHT IS WITHIN REACH.
[2020-06-12 07:29] LABS: BASOPHILS 0.3 % (0-2); EOSINOPHILS 4.4 % (0-7); HEMOGLOBIN 8.6 g/dL (12-16); IMMATURE GRANULOCYTES 0.4 % (0-5); LYMPHOCYTE ABS# 2.67 10x3/uL (1.18-3.74); LYMPHOCYTES 33.4 % (15-50); MCH 25.7 pg (26.0-34.0); MCHC 29.7 g/dL (31.0-37.0); MCV 86.6 fL (80.0-100.0); MEAN PLATELET VOLUME 9.2 fL (7.4-10.4); MONOCYTES 6.8 % (2-11); NEUTROPHIL ABS# 4.38 10x3/uL (1.56-6.13); NEUTROPHILS 54.7 % (40-80); PLATELET COUNT 250 10x3/uL (130-400); RBC 3.35 10x6/uL (4.00-5.40)
[2020-06-12 07:45] LABS: ANION GAP 12.2 mmol/L (8-16); CALCIUM 8.4 mg/dL (8.5-10.1); CREATININE - SERUM 0.9 mg/dL (0.6-1.3); POTASSIUM - SERUM 3.2 mmol/L (3.5-5.1)
[2020-06-12 07:54] VITALS: BP 163/49
[2020-06-12 08:05] VITALS: BP 165/72
--- NOTE | 2020-06-12 09:31 | NUR ---
PATIENT SITTING UP IN A WHEELCHAIR IN ROOM. CHAIR ALARM ON. CALL LIGHT WITHIN REACH. TYLENOL GIVEN FOR C/O HEADACHE. WILL CONTINUE WITH PALN OF CARE
--- NOTE | 2020-06-12 10:00 | NUR ---
I have reviewed this patient and I concur with the Shift Assessment completed by the Licensed Practical Nurse today this shift.
--- NOTE | 2020-06-12 14:12 | NUR ---
PATIENT HLEPED INTO BATHROOM. STAND BY ASST FROM WHEELCHAIR UNTO TOILET.
--- NOTE | 2020-06-12 16:28 | NUR ---
CARE TEAM MEETING: PATIENT DAUGHTER ATTENDED THE MEETING. HER QUESTIONS AND CONCERNS WERE ADDRESSSED. HER TENATIVE DC DATE IS 06/18/20. DR. ELISE HAS AGGREED TO BE HER PCP. WILL CONTINUE TO FOLLOW WITH PATIENT.
--- NOTE | 2020-06-12 21:00 | NUR ---
LEFT INFUSAPORT DRESSING CHANGE AND SITE CARE COMPLETED.
[2020-06-12 21:29] VITALS: BP 162/78
--- NOTE | 2020-06-13 03:38 | NUR ---
PT WOKE UP YELLING FOR ADRIANE. WHEN I WENT INTO HER ROOM SHE WAS SITTING ON THE EDGE OF THE BED AND HER BED ALARM WAS ON. SHE STATED I DONT KNOW WHERE I AM AT AND I NEED TO GO TO THE BATHROOM. REORIENTED HER TO TIME, PLACE AND SITUATION. ASSISTED TO RESTROOM, SHE VOIDED THEN ASSISTED HER BACK TO BED. FRESH ICE WATER GIVEN. SHE DENIES NEEDS OR PAIN. BED IS LOW, BED ALARM ON AND CALL LIGHT WITHIN REACH.
[2020-06-13 07:49] VITALS: BP 165/79
--- NOTE | 2020-06-13 08:46 | NUR ---
SHE IS SETTING UP IN THE WHEELCHAIR FOR BREAKFAST. TOOK HER MEDICAITONS WITHOUT ANY PROBLEMS. SHE HAS BRUISING TO THE RIGHT SIDE OF HER BACK/UPPER BOTTOCKS. THE CALL LIGHT IS WITHIN REACH AND THE BED ALARM IS ON.
[2020-06-13 21:49] VITALS: BP 171/79
[2020-06-13 22:45] VITALS: BP 164/76
[2020-06-14 07:50] LABS: BASOPHILS 0.3 % (0-2); EOSINOPHILS 3.7 % (0-7); HEMATOCRIT 28.3 % (36.0-48.0); HEMOGLOBIN 8.7 g/dL (12-16); IMMATURE GRANULOCYTES 0.1 % (0-5); LYMPHOCYTE ABS# 3.14 10x3/uL (1.18-3.74); MCH 26.3 pg (26.0-34.0); MCHC 30.7 g/dL (31.0-37.0); MCV 85.5 fL (80.0-100.0); MEAN PLATELET VOLUME 9.2 fL (7.4-10.4); MONOCYTES 8.2 % (2-11); NEUTROPHIL ABS# 3.57 10x3/uL (1.56-6.13); NEUTROPHILS 46.7 % (40-80); PLATELET COUNT 251 10x3/uL (130-400); RBC 3.31 10x6/uL (4.00-5.40); RDW 16.8 % (11.5-14.5); WBC 7.7 10x3/uL (4.8-10.8)
[2020-06-14 07:59] LABS: ANION GAP 10.2 mmol/L (8-16); CALCIUM 8.7 mg/dL (8.5-10.1); CARBON DIOXIDE 28.7 mmol/L (21.0-32.0); CREATININE - SERUM 0.9 mg/dL (0.6-1.3)
[2020-06-14 08:01] LABS: POTASSIUM - SERUM 2.9 mmol/L (3.5-5.1)
[2020-06-14 08:20] VITALS: BP 145/67
--- NOTE | 2020-06-14 10:55 | NUR ---
PT IS WORKKING WITH HER. SHE IS ALERT, TALKING. SHE IS WEARING 2 LITERS NC. SHE IS SETTING UP IN THE WHEELCHAIR FOR LUNCH. THE CALL LIGHT IS WITHIN REACH AND THE CHAIR ALARM IS ON.
--- NOTE | 2020-06-14 12:39 | NUR ---
NUTRITION FOLLOW UP: COMMENTS: Patient eating [employer] during visit. No new complaints. She has been eating well for meals. DIET: AHA Cardiac Diet PO INTAKE: 61% avg for last 9 meals WEIGHT: 06/05- 172 lbs BM: x 1 on 06/15 SIG MEDS: Vit D, Nystatin, Probiotic, MVI, Vit C, Protonix SIG LABS: Cl-109(H), BUN-27(H), GFR-41(L) RECOMMENDATIONS: Continue AHA diet as tolerated Offer nutritional supplements if PO intake becomes <50% avg RD to follow up within 7 days
--- NOTE | 2020-06-14 13:02 | NUR ---
NUTRITION FOLLOW UP: COMMENTS: Patient eating [employer] for lunch during visit. No new complaints with patient. She has been eating well for the last 9 meals. DIET: Regular Diet PO INTAKE: 64% avg for last 9 meals WEIGHT: 06/08-150 lbs BM: x 1 on 06/13 SIG MEDS: Probiotic, MVI/Iron/Zinc, Decadron, Vit B12, Vit D, Protonix, Colace, Miralax SIG LABS: K-2.9(L), Cl-109(H), GFR-63(L) RECOMMENDATIONS: Continue Regular diet as tolerated Encourage high K foods RD to follow up within 7 days
--- NOTE | 2020-06-14 20:00 | NUR ---
PATIENT RECEIVED SITTING UP IN LOW BED. DAUGHTER AT BEDSIDE. ASSESSMENT & VITAL SIGNS DONE. NO C/O PAIN OR DISTRESS AT THIS TIME. ALARM ON. CALL LIGHT WITHIN REACH. WILL CONTINUE TO MONITOR.
[2020-06-14 20:24] VITALS: BP 169/83
--- NOTE | 2020-06-15 00:15 | NUR ---
I have reviewed this patient and I concur with the Shift Assessment completed by the Licensed Practical Nurse today this shift.
--- NOTE | 2020-06-15 01:33 | NUR ---
PATIENT EYES CLOSED. RESPIRATIONS 18 & EVEN. BED LOW. ALARM ON. CALL LIGHT & BEDSIDE TABLE WITHIN REACH. WILL CONTINUE TO MONITOR.
--- NOTE | 2020-06-15 07:45 | NUR ---
PT RESTING IN BED WITH EYES OPEN CALL LIGHT IN REACH WILL MONITER
[2020-06-15 08:55] VITALS: BP 165/77
[2020-06-15 17:04] LABS: BILIRUBIN NEGATIVE (NEGATIVE); KETONE NEGATIVE (NEGATIVE); NITRITE NEGATIVE (NEGATIVE); UROBILINOGEN NORMAL mg/dL (< 2)
[2020-06-15 17:08] LABS: BACTERIA MODERATE HPF (NONE SEEN)
--- NOTE | 2020-06-15 17:47 | NUR ---
PT RESTING IN BED WITH EYES OPEN CALL LIGHT IN REACH NO PROBLEMS WILL MONITER
[2020-06-15 19:00] VITALS: BP 152/68
--- NOTE | 2020-06-15 20:00 | NUR ---
PATIENT RECEIVED SITTING UP IN BED. 02 @ 2L NASAL CANULA CONTINUES. ASSESSMENT & VITAL SIGNS DONE. BED LOW. ALARM ON. CALL LIGHT & BEDSIDE TABLE WITHIN REACH. WILL CONTINUE TO MONITOR.
--- NOTE | 2020-06-16 01:36 | NUR ---
PATIENT USED CALL LIGHT FOR ASSIST. PATIENT MINIMAL ASSIST INTO & OUT OF BED & WHEELCHAIR. PATIENT MINIMAL TRANSFER ON & OFF COMMODE. VOID & BM. PATIENT INDEPENDENT WITH CLEANING BUTTOCKS & PERIAREA. PATIENT WASHED HANDS, RETURNED TO LOW BED. ALARM ON. CALL LIGHT & BEDSIDE TABLE WITHIN REACH. WILL CONTINUE TO MONITOR.
--- NOTE | 2020-06-16 03:26 | NUR ---
I have reviewed this patient and I concur with the Shift Assessment completed by the Licensed Practical Nurse today this shift.
--- NOTE | 2020-06-16 04:52 | NUR ---
PATIENT EYES CLOSED. RESPIRATIONS 18 & EVEN. BED LOW. ALARM ON. BEDSIDE TABLE & CALL LIGHT WITHIN REACH. WILL CONTINUE TO MONITOR.
--- NOTE | 2020-06-16 08:15 | NUR ---
PT IN BED EATING BREAKFAST TOLERATING WELL CALL LIGHT IN REACH WILL MONITER
[2020-06-16 09:02] VITALS: BP 154/72
--- NOTE | 2020-06-16 17:48 | NUR ---
PT UP IN WHEELCHAIR EATING SUPPER TOLERATING WELL CALL LIGHT IN REACH WILL MONITER
[2020-06-16 19:00] VITALS: BP 150/49
--- NOTE | 2020-06-16 19:45 | NUR ---
PATIENT RECEIVED SITTING UP IN BED. ASSESSMENT & VITAL SIGNS DONE. NO C/O PAIN OR DISTRESS. BED LOW. CALL LIGHT, BEDSIDE TABLE WITHIN REACH. WILL CONTINUE TO MONITOR.
--- NOTE | 2020-06-17 03:48 | NUR ---
PATIENT EYES CLOSED. RESPIRATIONS 18 & EVEN. BED LOW. CALL LIGHT WITHIN REACH. WILL CONTINUE TO MONITOR. ALARM ON.
[2020-06-17 06:30] LABS: BASOPHILS 0.3 % (0-2); EOSINOPHILS 2.1 % (0-7); HEMATOCRIT 29.4 % (36.0-48.0); HEMOGLOBIN 8.9 g/dL (12-16); IMMATURE GRANULOCYTES 0.1 % (0-5); LYMPHOCYTE ABS# 2.76 10x3/uL (1.18-3.74); LYMPHOCYTES 31.6 % (15-50); MCH 26.3 pg (26.0-34.0); MCHC 30.3 g/dL (31.0-37.0); MCV 86.7 fL (80.0-100.0); MEAN PLATELET VOLUME 9.1 fL (7.4-10.4); MONOCYTES 7.7 % (2-11); NEUTROPHIL ABS# 5.08 10x3/uL (1.56-6.13); NEUTROPHILS 58.2 % (40-80); PLATELET COUNT 292 10x3/uL (130-400); RBC 3.39 10x6/uL (4.00-5.40); RDW 17.3 % (11.5-14.5); WBC 8.7 10x3/uL (4.8-10.8)
[2020-06-17 06:38] LABS: ANION GAP 10.3 mmol/L (8-16); CALCIUM 8.8 mg/dL (8.5-10.1); CARBON DIOXIDE 29.1 mmol/L (21.0-32.0); CREATININE - SERUM 0.9 mg/dL (0.6-1.3); POTASSIUM - SERUM 3.4 mmol/L (3.5-5.1)
[2020-06-17 08:24] VITALS: BP 164/83
[2020-06-17] MEDS ORDERED: MACROBID100 MG PO (08:28)
[2020-06-17 19:33] VITALS: BP 134/54
--- NOTE | 2020-06-18 01:48 | NUR ---
ASSISTED PT TO RESTROOM AND BACK TO BED. SHE VOIDED. SHE DENIES PAIN OR NEEDS. HER BED IS LOW, BED ALARM ON AND CALL LIGHT IS WITHIN REACH.
[2020-06-18 07:40] VITALS: BP 142/75
--- NOTE | 2020-06-18 09:02 | NUR ---
SHE IS SETTING UP IN BED FOR BREAKFAST. SHE IS DISCHARGING HOME TODAY. THE CALL LIGHT IS WITHIN REACH AND THE BED ALARM IS ON.
--- NOTE | 2020-06-18 11:50 | NUR ---
PAPERWORK GONE OVER WITH PATIENT AND HER DAUGHTER. I CALLED IN MACROBID TO [facility]. I DEACCESSED HER INFUSA PORT. SHE WAS TAKEN OUT VIA A WHEELCHAIR TO THE FRONT DOOR.
--- NOTE | 2020-06-18 11:52 | NUR ---
PATIENT IS DISCHARGING HOME TODAY WITH DAUGHTER. [facility] WILL RESUME THERAPY AT HOME. NO NEW DME NEEDED AT THIS TIME. LAINEY SIGNED, IMM SERVED AND EXPLAINED, ONE GIVEN TO PATIENT AND ONE FILED IN CHART. DR. ELISE/LUBA 06/24/20 @ 11:15, DR. VALENTIN 06/25/20 @ 10:15. DISCHARGE INSTRUCTIONS FAXED TO PCP, HOME HEALTH AND REVIEWED WITH PATIENT AND DAUGHTER.
== END 2020-06-18 13:04 | disposition home health service (06) | DRG 947 ==
LOC: D.REHAB 12:41
PROVIDERS: ADMIT Emergency Medicine; ATTEND Emergency Medicine
DX: R53.81 Other malaise (principal); J18.9 Pneumonia, unspecified organism; G72.2 Myopathy due to other toxic agents; C34.90 Malignant neoplasm of unspecified part of unspecified bronchus or lung; C79.31 Secondary malignant neoplasm of brain; N39.0 Urinary tract infection, site not specified; I25.10 Atherosclerotic heart disease of native coronary artery without angina pectoris; K21.9 Gastro-esophageal reflux disease without esophagitis; F41.9 Anxiety disorder, unspecified; R41.89 Other symptoms and signs involving cognitive functions and awareness; R26.2 Difficulty in walking, not elsewhere classified; R06.00 Dyspnea, unspecified; R53.83 Other fatigue; M19.90 Unspecified osteoarthritis, unspecified site; G62.9 Polyneuropathy, unspecified; I73.9 Peripheral vascular disease, unspecified; R55 Syncope and collapse; G89.29 Other chronic pain; F32.9 Major depressive disorder, single episode, unspecified

== ENCOUNTER 2020-06-23 16:05 | Emergency (ER) | payer MEDICARE, BC ==
[~2020-06-23] VITALS: Ht 160 cm; Wt 68.2 kg
[~2020-06-23 16:05] MED LIST changes: +MACROBID100 MG PO
[2020-06-23 16:13] VITALS: Ht 160 cm; Wt 68.2 kg
[2020-06-23 17:28] LABS: BASOPHILS 0.3 % (0-2); EOSINOPHILS 2.5 % (0-7); HEMATOCRIT 31.1 % (36.0-48.0); HEMOGLOBIN 9.6 g/dL (12-16); IMMATURE GRANULOCYTES 0.2 % (0-5); LYMPHOCYTE ABS# 2.26 10x3/uL (1.18-3.74); LYMPHOCYTES 35.7 % (15-50); MCH 26.4 pg (26.0-34.0); MCHC 30.9 g/dL (31.0-37.0); MCV 85.7 fL (80.0-100.0); MEAN PLATELET VOLUME 8.9 fL (7.4-10.4); MONOCYTES 11.8 % (2-11); NEUTROPHIL ABS# 3.13 10x3/uL (1.56-6.13); NEUTROPHILS 49.5 % (40-80); PLATELET COUNT 266 10x3/uL (130-400); RBC 3.63 10x6/uL (4.00-5.40); RDW 16.3 % (11.5-14.5); WBC 6.3 10x3/uL (4.8-10.8)
[2020-06-23 17:30] VITALS: BP 122/64
[2020-06-23 17:42] LABS: ANION GAP 10.7 mmol/L (8-16); CALCIUM 8.9 mg/dL (8.5-10.1); CARBON DIOXIDE 27.1 mmol/L (21.0-32.0); CREATININE - SERUM 0.9 mg/dL (0.6-1.3); POTASSIUM - SERUM 3.8 mmol/L (3.5-5.1)
[2020-06-23 17:48] LABS: ALBUMIN 2.9 g/dL (3.4-5.0); BILIRUBIN - TOTAL 0.25 mg/dL (0.2-1.3); PROTEIN - SERUM 6.2 g/dL (6.4-8.2)
[2020-06-23] MEDS ORDERED: DEXAMETHASONE2 MG PO ×2 (18:18→18:27)
== END 2020-06-23 19:37 | disposition home or self-care (01) ==
LOC: D.ER 16:05
PROVIDERS: Family Medicine
DX: C34.90 Malignant neoplasm of unspecified part of unspecified bronchus or lung (principal); C79.31 Secondary malignant neoplasm of brain; G62.9 Polyneuropathy, unspecified; Z95.1 Presence of aortocoronary bypass graft; K21.9 Gastro-esophageal reflux disease without esophagitis

== ENCOUNTER 2020-08-14 17:48 | Inpatient (IN) | payer MEDICARE, BC ==
[~2020-08-14] VITALS: Ht 160 cm; Wt 71.2 kg
--- NOTE | ~2020-08-14 | HEMODYNAMI ---
PATIENT:SHARON SELLERS MEDICAL RECORD: [id number] : 31 [id number]# [id number] ADMISSION DATE: 08/14/20 Generatedon:113:33 Patient name: SHARON SELLERS Patient #: [id number] SSN: : 1935 Date of study: 08/15/2020 Page: Of Hemodynamic Procedure Report Patient Data Patient Demographics Procedure consent was obtained First Name: SHARON Gender: Female Last Name: VERITO : 1935 [facility] Initial: ROSIE Age: 84 year(s) Patient #: [id number] Race: Unknown Additional ID: [id number] Contact details Address: [address] [place] [address] State: [place] City: [facility] Zip code: [address] Past Medical History Allergies Allergen Reaction Date Comments Reported Iodine 05/24/2020 Iodine 08/15/2020 Admission Admission Data Admission Date: 08/14/2020 Admission Time: 21:01 Room #: D.E17 Procedure Procedure Types Cath Procedure Peripheral Cath Diagnostic Procedure Miscellaneous Cathetergram Procedure Description Procedure Date Procedure Date: 08/15/2020 Procedure Start Time: 13:22 Procedure Staff Name Function Osmani Castro MD Performing Physician Sherry Gonzalez RT Machine [employer]inter Hose Francisca Gil RN Nurse Procedure Data Cath Procedure Fluoroscopy Diagnostic fluoroscopy Total fluoroscopy Time: 0.2 time: 0.2 min min Diagnostic fluoroscopy Total fluoroscopy dose: 21 dose: 21 mGy mGy Contrast Material Contrast Material Type Amount (ml) Isovue 300 5 Hemodynamics Rest Pre Cath Intra NCS Post Cath Vital Signs Time SPO2 etCO2 NIBP (mmHg) Rhythm Pain Sedation (%) (mmHg) Status Level 13:18:56 95 0 Measuring NSR 0 (11) , 10(A) No pain 13:19:14 96 0 197/94(142) NSR 0 (11) , 10(A) No pain 13:23:38 94 0 192/96(131) NSR 0 (11) , 10(A) No pain 13:28:02 95 0 187/97(148) NSR 0 (11) , 10(A) No pain 13:32:23 94 0 185/98(113) NSR 0 (11) , 10(A) No pain Procedure Log Time Note 12:55:18 Time tracking: Regular hours (M-F 7:00 - 5:00) 12:55:25 Patient received from ED to IR Alert and oriented. Tansferred to table in Supine position. 12:55:29 Signed procedure consent form obtained from patient. 12:55:34 Pre-procedure instructions explained to patient. 12:55:35 Pre-op teaching completed and patient verbalized understanding. 12:55:37 Family unavailable. 12:55:44 Patient allergic to Iodine 12:56:09 Is the patient allergic to Iodine/contrast media? Yes. 12:56:12 Was the patient premedicated? Yes 12:56:14 - 13:17:06 Vital chart was started 13:17:10 Full Disclosure recording started 13:17:10 - 13:21:52 Left chest area was prepped with chlora-prep and draped in sterile fashion 13:21:54 Physician arrived 13:21:55 --------ALL STOP TIME OUT------ 13:21:55 Final Timeout: patient, procedure, and site verified with staff and physician. All members of the team are in agreement. 13:22:18 Procedure started. 13:31:44 5cc's of isovue 300 injected into port to check for any abnormalities 13:31:49 Procedure ended.(Physican Out) 13:32:26 Fluoroscopy time 00.20 minutes. 13:32:31 Fluoroscopy dose: 21 mGy 13:32:31 Flurop Dose total: 21 13:32:36 Contrast amount:Isovue 300 5ml. 13:33:20 Vital chart was stopped Signature Audit [place] Stage Time Signature Unsigned Intra-Procedure 08/15/2020 Sherry Gonzalez 1:33:17 PM RT(R) [facility] [address] [place] [address]
[~2020-08-14 17:48] MED LIST changes: +DEXAMETHASONE2 MG PO
--- NOTE | 2020-08-14 19:11 | NUR ---
REPORT TO ALY MATA
[2020-08-14 20:00] VITALS: BP 166/86
--- NOTE | 2020-08-14 21:00 | NUR ---
NEW DRESSING APPLIED, WITH SURGICEL, ABD PAD AND FOAM TAPE, PATIET WELL TOLERATED.
[2020-08-14 21:31] LABS: APTT 24.9 SECONDS (22.8-39.4); INR 1.14 (0.85-1.17); PROTIME 13.5 SECONDS (11.6-15.0)
[2020-08-14 21:45] LABS: ANION GAP 12.9 mmol/L (8-16); CALCIUM 7.8 mg/dL (8.5-10.1); CARBON DIOXIDE 26.2 mmol/L (21.0-32.0); CREATININE - SERUM 0.9 mg/dL (0.6-1.3); POTASSIUM - SERUM 4.1 mmol/L (3.5-5.1)
[2020-08-14 21:51] LABS: BILIRUBIN - TOTAL 0.27 mg/dL (0.2-1.3); PROTEIN - SERUM 6.2 g/dL (6.4-8.2)
--- NOTE | 2020-08-14 22:00 | NUR ---
FAMILY AT BEDSIDE BLEEDING IS CONTROLLED AT THIS TIME TO IPORT.
[2020-08-14 22:01] LABS: BASOPHILS 0.1 % (0-2); EOSINOPHILS 0 % (0-7); HEMOGLOBIN 9.9 g/dL (12-16); LYMPHOCYTES 28.9 % (15-50); MCH 24.6 pg (26.0-34.0); MCHC 31.9 g/dL (31.0-37.0); MEAN PLATELET VOLUME 7.5 fL (7.4-10.4); MONOCYTES 5.3 % (2-11); NEUTROPHILS 65.7 % (40-80); PLATELET COUNT 306 10x3/uL (130-400); RBC 4.02 10x6/uL (4.00-5.40); RDW 18.6 % (11.5-14.5); WBC 6.2 10x3/uL (4.8-10.8)
--- NOTE | 2020-08-15 | NUR ---
PATIENT RESTING WELL BLEEDING TO IPORT CONTROLLED AT THIS TIME, NO SS OF DISTRESS AT THIS TIME.
--- NOTE | 2020-08-15 03:53 | NUR ---
PATIENT RESTING WELL, BLEEDING TO IPORT CONTROLLED AT THIS TIME. NO SS OF DISTRESS
--- NOTE | 2020-08-15 06:49 | NUR ---
PATIENT RESTING WELL NO SS OF BLEEDING AT THIS TIME
[2020-08-15 08:51] VITALS: BP 224/93
--- NOTE | 2020-08-15 08:51 | NUR ---
VS ASSESSED. BP ELEVATED AT 224/93. RECHECKED IN 15 MINS. BP 197/87. DR. VALENTIN NOTIFIED. ORDERS TAKEN.
[2020-08-15 09:00] VITALS: BP 191/88
--- NOTE | 2020-08-15 09:00 | NUR ---
PATIENT IS NPO. MEDICATIONS ON HOLD.
[2020-08-15 10:15] VITALS: BP 1191/88
--- NOTE | 2020-08-15 10:19 | NUR ---
PRE-OP MEDICATIONS GIVEN IV. HYDRALYZINE 5MG IV GIVEN FOR SBP OF 191. BP CHECKS Q 5 MINS X 30 MINS.
[2020-08-15 11:00] VITALS: BP 184/91
[2020-08-15 12:00] VITALS: BP 173/94
[2020-08-15 14:30] VITALS: Ht 160 cm; Wt 71.2 kg
[2020-08-15 15:00] VITALS: BP 142/70
--- NOTE | 2020-08-15 15:00 | NUR ---
BACK FROM PORT-A-GRAM. NO C/O. BP 142/70. DAUGHTER HERE.
== END 2020-08-15 18:13 | disposition home or self-care (01) | DRG 314 ==
LOC: D.ER 17:48 → D.EDHOLD 21:01
PROVIDERS: Emergency Medicine; ADMIT Internal Medicine Hematology & Oncology; ATTEND Internal Medicine Hematology & Oncology
DX: T82.838A Hemorrhage due to vascular prosthetic devices, implants and grafts, initial encounter (principal); J18.9 Pneumonia, unspecified organism; C34.92 Malignant neoplasm of unspecified part of left bronchus or lung; C79.31 Secondary malignant neoplasm of brain; D62 Acute posthemorrhagic anemia; J98.11 Atelectasis; Z95.1 Presence of aortocoronary bypass graft; G62.9 Polyneuropathy, unspecified; K21.9 Gastro-esophageal reflux disease without esophagitis; I73.9 Peripheral vascular disease, unspecified; I25.10 Atherosclerotic heart disease of native coronary artery without angina pectoris